=== PATIENT | female | born 1960 | race Caucasian/White ===

== ENCOUNTER → 2017-05-10 | Outpatient (CLI) | payer BC, OTHER ==
[~2017-05-10] MED LIST: ACET-1966 PO; ALPR0.5T3 PO; CALC-1210 PO; CALC667C7 PO; CHOL100060 PO; DOCU-416 PO; DOCU100C49 PO; DOCU100T19 PO; ENOX80DI8 SQ; FERR140T2 PO; FLU60SYR30 IM ONLY; FURO20TA19 PO; IBUP600T22 PO; LOSA25TA51 PO; METH500T6 PO; METO-222 PO; MULT-820 PO; NITR-1 PO; OMEG-11 PO; ONDA8TAB94 PO; OXYC-854 PO; PEGFILGRASTIM 6 MG/0.6 ML SYR SUBQ ONE; POTA-53 PO; PRAV20TA65 PO; SPIR50TA31 PO; TAMS0.4C70 PO; TOLT4CAP PO; TUM500 PO; VIT1CAPS9; WAR75 PO; WARF10TA29 PO; [UNRECOGNIZED DRUG - CODE] SUBQ
== END ==
LOC: SPU 11:05
PROVIDERS: ATTEND Internal Medicine
DX: C20 Malignant neoplasm of rectum (principal)
CPT/HCPCS: 96372; J2505

== ENCOUNTER → 2017-06-07 | Outpatient (CLI) | payer BC, OTHER ==
[~2017-06-07] MED LIST changes: +OMEP-218 PO
[2017-06-07 12:50] VITALS: BP 104/61
== END ==
LOC: SPU 07:36
PROVIDERS: ATTEND Internal Medicine
DX: C20 Malignant neoplasm of rectum (principal)
CPT/HCPCS: 96372; J2505

== ENCOUNTER 2017-06-12 14:53 | Outpatient (RCR) | payer BC ==
[2017-03-18 11:30] VITALS: BP 110/69
--- NOTE | 2017-03-21 18:19 | [facility] ONCOLOGY NOTE ---
DATE OF VISIT: March 18, 2017 CHIEF COMPLAINT/REASON FOR VISIT Mrs. Martinez is a very pleasant 56-year-old female with newly diagnosed early stage adenocarcinoma of the rectum. HISTORY OF PRESENT ILLNESS and Mrs. Martinez present to discuss her newly diagnosed adenocarcinoma of the rectum. This is not an anal carcinoma as it is not squamous cell. Based on the PET scan as well as the histology, this is a low rectal cancer as opposed to anal cancer. The patient first noted symptoms over a year ago and has had what she thought to be hemorrhoid bleeding for quite some time. She is very fortunate that her PET scan, subsequent MRI and CT do not show any evidence of metastatic disease to lymph nodes. She has an atypical appearing cyst in the liver and we will have that reviewed by the GI multidisciplinary team to make sure that there is agreement that this is a benign lesion. If not we will need to get a biopsy. Otherwise she feels well. She does have chronic medical issues including controlled congestive heart failure, Marfan syndrome, history of valve replacement and open heart surgery, sleep apnea, and history of stroke in 2001. Since the biopsy she has had issues with her bladder and she is working with Dr. Nichole to address this. I agree with him that we need to hold off on neoadjuvant therapy until the bladder is improved. Would like to get started in the next few weeks, so it may not need to be resolved completely as this is a temporary issue. I do not know why the biopsy would lead to this issue. We did not see any evidence of metastatic disease of the spine or elsewhere. If we do not get any improvement, we may need to consider a lumbar puncture, although this would be a very atypical presentation for metastatic rectal cancer. Overall the patient feels at her baseline. She does have chronic medical conditions, but otherwise her performance status ECOG PS of 1. PAST MEDICAL/SURGICAL HISTORY 1. Chronic anemia. 2. Cataract surgery. 3. Congestive heart failure. 4. Marfan syndrome. 5. Cholecystectomy in 2001. 6. Open heart surgery in approximately 2001. 7. Stroke in 2001. 8. Obstructive sleep apnea. 9. History of hemorrhoids. 10. History of incomplete bladder emptying, workup ongoing in February 2017, occurred after surgery and seems to be a surgical complication as opposed to a cancer complication. SOCIAL HISTORY Patient is and has presented with her . 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 No tobacco or alcohol use. She has four children ages 29-36. FAMILY HISTORY Her mother may have had cancer, but unknown. No other cancer in the family. CURRENT MEDICATIONS 1. Calcium. 2. Vitamin D. 3. Lasix 20 mg daily as needed for edema. 4. Potassium 10 mEq as needed for edema. 5. Losartan 25 mg daily. 6. Metoprolol XL 100 mg daily. 7. [place]-3 fatty acid supplement. 8. Pravastatin 20 mg daily. 9. Spironolactone 50 mg daily. 10. Flomax 0.4 mg daily. 11. Tylenol as needed. 12. Coumadin with Coumadin clinic. REVIEW OF SYSTEMS CONSTITUTIONAL: Positive weight loss and chills. HEENT: She wears glasses. She does have a history of obstructive sleep apnea, but headaches or vision changes. CARDIOVASCULAR: Extensive history with her history of congestive heart failure and Marfan syndrome as well as surgery. She does have a heart murmur from her mechanical aortic valve - [facility] [employer]. Positive shortness of breath with significant exertion. RESPIRATORY: No shortness of breath, wheeze, cough. GASTROINTESTINAL: No nausea, vomiting, diarrhea. GENITOURINARY: Positive poor bladder voiding since her biopsy procedure. SKIN: No concerning lesions or rashes. HEMATOLOGIC: Easy bruising and bleeding. Does have a history of known anemia. IMMUNOLOGIC: No concerning lumps or bumps. PSYCHIATRIC: No anxiety or depression. ENDOCRINE: No heat or cold intolerance. The remainder of the 14-point review of systems is otherwise negative. PHYSICAL EXAMINATION VITAL SIGNS: Blood pressure 110/69, pulse 76, respiratory rate 16, temperature 97.4 Fahrenheit, oxygen saturation 94% on room air. Height 174.5 cm, weight is 97.5 kg. Pain 0/10, fatigue 0/10. GENERAL: Stable condition, resting comfortably in the chair. HEENT: Normocephalic, atraumatic. CARDIOVASCULAR: Regular rate and rhythm. Normal S1, S2, but she does have the mechanical click of the [facility] valve. Murmur from her heart is noted as well. GASTROINTESTINAL: No organomegaly. Soft, nontender. EXTREMITIES: No clubbing, cyanosis or edema today. PSYCHIATRIC: Normal mood and affect. NEUROLOGIC: The patient does have some sciatica-like symptoms in the left leg that have been chronic and mild. RECTAL: Exam deferred. The remainder of the physical exam is otherwise unremarkable, except as noted above. LABS AND IMAGING I reviewed her PET scan reports as well as her MRI of her pelvis and CAT scan of the liver. We would like to have her case reviewed at the Multidisciplinary Team tomorrow. Would also like to screen her for our upfront clinical trial with rectal cancer. We will find out if it is possible to give radiation therapy in [place] with that study or if it needs to be in [place]. This would like be a significant deterrent as she would need to get daily radiation there. IMPRESSION AND PLAN Mrs. Martinez is a pleasant 56-year-old female with the followin. Early stage adenocarcinoma of the rectum. I had an excellent discussion with the patient and her today about the diagnosis, treatment options and natural history of this disease. As she appears to be localized disease this would have a high cure rate with complete triple modality therapy, including chemotherapy, radiation and surgery. She understands that he surgical biopsy is not adequate to completely take care of her disease. Recommend upfront therapy with FOLFOX followed by combination chemotherapy/ radiation, followed by surgery. She expresses understanding and agreement with this plan. We discussed the potential side effects of FOLFOX, Xeloda as well as the chemotherapy clinical trial with veliparib. We will see if she would be potentially eligible and we will try to get more information to her by Saturday. I completely agree with Dr. Nichole that we need to address her bladder issues before we can proceed with chemotherapy. His workup is ongoing. I answered all of their remaining questions today. Billing: New patient level 5. Total time 90 minutes, counseling time and coordination of care time 60. MTDD
[2017-04-01 08:48] LABS: PLATELET COUNT, AUTOMATED 224 K/uL (150-450)
[2017-04-01 08:51] VITALS: BP 100/67
--- NOTE | 2017-04-05 21:11 | ONCOLOGY FOLLOW UP NOTE ---
EVENT DATE: 04/01/2017 CHIEF COMPLAINT/REASON FOR VISIT Mrs. Martinez is a very pleasant 56-year-old female with early stage adenocarcinoma of the rectum. HISTORY OF PRESENT ILLNESS and Mrs. Martinez return to discuss her diagnosis and next steps. This is an adenocarcinoma of the rectum and not an anal carcinoma. Based on the PET scan as well as the histology this is a low rectal cancer as opposed to anal cancer. The patient first noted some symptoms about a year ago for what she thought was a bleeding hemorrhoid. She is very fortunate that her PET scan and subsequent MRI do not show any evidence of metastatic disease to lymph nodes. We have not yet had an EUS and hope to get one on Saturday to get the exact T score. We have reviewed her imaging with the GI multidisciplinary clinic in [place], and she has seen Dr. Anita Zhang to discuss surgery when the time is appropriate. We have considered two clinical trials, which she would be an excellent candidate for. However, the travel in the wintertime would be quite difficult and so she is declining this study. Otherwise she continues to feel well. Her bladder has improved. She no longer is requiring catheterization. She has followup with Dr. Nichole tomorrow. She does have many chronic medical issues including controlled congestive heart disease, Marfan syndrome, history of valve replacement and open heart surgery, sleep apnea and a history of a stroke in 2001. I am encouraged by the improvement in her bladder and I doubt that this is related to cancer, as we would not expect it to improve without any type of treatment. She feels ready to proceed with therapy after her port placement on . PAST MEDICAL/SURGICAL HISTORY 1. Chronic anemia. 2. Cataract surgery. 3. Congestive heart failure. 4. Marfan syndrome. 5. Cholecystectomy in 2001. 6. Open heart surgery in approximately 2001. 7. Stroke in 2001. 8. Obstructive sleep apnea. 9. History of hemorrhoids. 10. History of incomplete bladder emptying, workup ongoing in February 2017, occurred after surgery and seems to be a surgical complication as opposed to a cancer complication. SOCIAL HISTORY Patient is and has presented with her . 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 No tobacco or alcohol use. She has four children ages 29-36. FAMILY HISTORY Her mother may have had cancer, but unknown. No other cancer in the family. CURRENT MEDICATIONS 1. Calcium. 2. Vitamin D. 3. Lasix 20 mg daily as needed for edema. 4. Potassium 10 mEq as needed for edema. 5. Losartan 25 mg daily. 6. Metoprolol XL 100 mg daily. 7. [place]-3 fatty acid supplement. 8. Pravastatin 20 mg daily. 9. Spironolactone 50 mg daily. 10. Flomax 0.4 mg daily. 11. Tylenol as needed. 12. Coumadin with Coumadin clinic. REVIEW OF SYSTEMS CONSTITUTIONAL: Positive weight loss and some chills. HEENT: Does have a history of obstructive sleep apnea, but no headaches of visual changes. CARDIOVASCULAR: Extensive history with controlled congestive heart failure and Marfan syndrome. She has had a history of a mechanical valve [facility]. She does have some shortness of breath with significant exertion, but none with mild exertion. RESPIRATORY: No shortness of breath, wheeze, cough at rest. GASTROINTESTINAL: No nausea, vomiting, diarrhea or constipation. GENITOURINARY: Her bladder is improving since her biopsy procedure. I suspect that this is a complication from the procedure as opposed to a complication from the cancer. SKIN: No concerning lesions or rashes. HEMATOLOGIC: No easy bruising or bleeding. IMMUNOLOGIC: No issues with infection. PSYCHIATRIC: No anxiety or depression. ENDOCRINE: No heat or cold intolerance. The remainder of the 14-point review of systems is otherwise negative. PHYSICAL EXAMINATION VITAL SIGNS: Blood pressure 100/67, pulse 82, respiratory rate 16, temperature 97.0, Fahrenheit, oxygen saturation 92% on room air. Weight 97.3 kg. Pain 1/10 , fatigue 2/10. GENERAL: In stable condition, resting comfortably in the chair. HEENT: Normocephalic, atraumatic. CARDIOVASCULAR: Exam deferred today as it was done two weeks ago. Regular rate and rhythm. Normal S1, S2 with a mechanical click of the [employer] valve. She does have a murmur as well, believed to be related to the valve and unchanged. GASTROINTESTINAL: No organomegaly. PSYCHIATRIC: Normal mood and affect. The remainder of the physical exam is otherwise unremarkable and deferred to amount of time spent in counseling and coordination of care today. IMPRESSION AND PLAN Mrs. Martinez is a pleasant 56-year-old female with the following: Early stage adenocarcinoma of the rectum. Suspect T2 to T3 N0 M0 disease. We had an extensive discussion again today about the treatment options and natural history of the disease. As noted above, she denies clinical trial due to travel. Recommend upfront therapy with FOLFOX followed by combination chemotherapy/radiation followed by surgery. She has met with Dr. Anita Zhang in [place], and will meet with our radiation oncologist here in [place] in the near future. She expresses understanding and agreement with the plan. She would like to move forward as soon as possible. I completely agree with Dr. Nichole's plan to continue watching the bladder issues at this time. We would like to begin chemotherapy after the port placement. If she has any regression we may require Urology intervention with continued catheterizations. I answered all of their many questions today. We had an extensive discussion about the potential side effects with FOLFOX today. Billing: Return visit level 5. Total time 45 minutes, counseling time 30. MTDD
[2017-04-10 09:03] VITALS: BP 109/67
--- NOTE | 2017-04-10 09:13 | ONC Progress Note - NP.Halsey ---
Patient History Date of Service Apr 10, 2017 Reason For Visit/HPI Patient is seen in the clinic today for education prior to starting chemotherapy with FOLFOX for her early-stage adenocarcinoma of the rectum. Patient has previously consult it with Dr. Wilkinson and has discussed plan of care. Her spouse is with her today. Problem List (1) Adenocarcinoma of anal canal Oncology History Patient 1st noted symptoms about 1 year ago which she thought was bleeding from a hemorrhoid. She was then found to have an Adenocarcinoma of the rectum and not an anal carcinoma diagnosed on 02/14/2017 with a biopsy indicating poorly differentiated invasive adenocarcinoma extending to the margins, biopsy measuring 7.5 x 5 x 2 cm. PET/CT scan completed on 03/05/2017 did not show any evidence of metastatic disease to the lymph nodes. There is uptake in the low rectum with SUV of 7.16. CT of the abdomen with and without contrast completed on 03/12/2017 showed only a cystic mass in the right lobe of the liver measuring 5 x 5.8 cm. Patient's case was reviewed with GI multidisciplinary team in [place] and patient followed with Dr. Anita Zhang to discuss surgery when it is appropriate. 2 clinical trials were considered however with wintertime travel it would be difficult so patient has chosen to complete 12 cycles of FOLFOX neoadjuvant followed by radiation and then surgery. 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 Alcohol History She denies use Recreational Drug History She denies use Smoking History: No Smoking Status: Never Smoker Medications and Allergies Active Scripts Ondansetron (ZOFRAN ODT) 8 Mg Tab.rapdis, 8 MG PO Q8H, #30 TAB 3 Refills Prov:PRICILLA LINDO-BC, ONC 04/10/17 Alprazolam (ALPRAZOLAM ODT) 0.5 Mg Tab.rapdis, 1 TAB PO Q4-6H Y for nausea, #30 TAB 1 Refill Prov:PRICILLA LINDO-BC, ONC 04/10/17 Oxycodone Hcl/Acet 5/325 Mg (ENDOCET 5-325 TABLET) 1 Each Tablet, 1-2 TAB PO Q4H Y for PAIN, #30 TAB 0 Refills Prov:NASEEM POLANCO MD 04/04/17 Reported Medications Enoxaparin Sodium (LOVENOX) 80 Mg/0.8 Ml Disp.syrin, 80 MG SQ 04/01/17 Docusate Sodium (STOOL SOFTENER) 100 Mg Capsule, 100 MG PO PRN, CAPSULE 03/19/17 Potassium Chloride (POTASSIUM CHLORIDE) 10 Meq Tab.er.prt, 10 MEQ PO PRN 03/19/17 Vit C/E/Zn/Coppr/Lutein/Zeaxan (Preservision Areds 2 Softgel) 1 Each Capsule 03/19/17 Acetaminophen (TYLENOL) 325 Mg Tablet, 325 MG PO PRN, TAB 03/19/17 Tamsulosin Hcl (TAMSULOSIN HCL) 0.4 Mg Cap.er.24h, 0.4 MG PO QDAY, CAP 03/18/17 Ferrous Sulfate (FERROUS SULFATE) 140 Mg Tablet.er, 65 MG PO QDAY 03/01/17 Methylcellulose (FIBER) 500 Mg Tablet, 500 MG PO DAILY 07/28/12 Pravastatin Sodium (Pravachol) 20 Mg Tablet, 20 MG PO DAILY 07/28/12 Losartan Potassium (Losartan Potassium) 25 Mg Tablet, 25 MG PO DAILY 07/28/12 Warfarin Sodium (Coumadin) 10 Mg Tablet, 7.5 MG PO 5XWEEK It is very important that you take your coumadin exactly as prescribed, have blood work to monitor your PT/INR values, and follow up with your health care provider as prescribed. Diet and medication can affect the PT/INR level. Keep your diet pretty much the same day to day. Many foods contain Vitamin K which helps blood to clot and can affect the way your coumadin works. You don't need to avoid foods that have Vitamin K, but you do need to eat about the same amount of them every day. Be sure to tell your provider before changing your diet for any reason (weight loss, illness, etc.) Do not start or discontinue any medications, prescribed or over the counter, except on the advise of your provider or pharmacist. Coumadin (Warfarin) increases the risk of bleeding. 07/28/12 Multivitamins (Multivitamin) 1 Tab Tablet, 1 TAB PO DAILY 07/28/12 Calcium Carbonate (Tums) 500 Mg Chew, 500 MG PO DAILY 07/28/12 Docosahexanoic Acid/Epa (Fish Oil 1,000 Mg Capsule) 1 Cap Capsule, 1 CAP PO DAILY 07/28/12 Cholecalciferol (Vitamin D) 1,000 Unit Capsule, 1000 UNIT PO DAILY 07/28/12 Spironolactone (Spironolactone) 50 Mg Tablet, 50 MG PO DAILY 07/28/12 Metoprolol Tartrate (Metoprolol Tartrate) 100 Mg Tablet, 100 MG PO DAILY 07/28/12 Allergies: Coded Allergies: No Known Drug Allergies (Unverified , 07/28/12) Review of System/Physical Exam Review of Systems All Systems Reviewed/Normal: Yes, Except as Noted Hematologic: Positive for Fatigue (rated at 3 today) Physical Exam Vital Signs Temperature: 97.3 Pulse: 82 BP Systolic: 100 BP Diastolic: 67 Respiratory Rate: 16 O2 SAT: 92 O2 Delivery: Height (inches) 68.00 Weight lb: 212 Weight oz: Weight Kg ([place]onte): Pain: 1 ECOG Score: 0 General: Stable, Well Developed, Well Nourished, Not In Acute Distress Psychiatric: Mood appears normal, Affect appears normal Chemo Education Chemotherapy Education: Patient is seen today for education regarding chemotherapy with FolFox for her adenocarcinoma of the anus The treatment schedule and associated appointments were discussed and reviewed. A print out will be given to the patient. The intent for treatment is curative. Consent for treatment was completed prior to receiving treatment. Mechanism of action and associated side effects of 5-FU, leucovorin and oxaliplatin and premedications were discussed. The patient is at increased risk for infection related to bone marrow suppression with chemotherapy. Signs and symptoms of infection were reviewed with recommendation of calling the clinic if fever, chills or a temperature of 100.5 or greater is experienced. Regular monitoring of blood work will be completed. The patient is at increased risk of nausea and vomiting related to chemotherapy. Home antiemetics were reviewed with a schedule of when to take them. Script (s) for Zofran and Ativan were faxed to [facility]. Increased bowel movements or diarrhea may occur. The use of Imodium was reviewed and encouraged to have on hand. Dehydration from decreased intake, nausea or diarrhea could also occur. Side effects of dehydration were reviewed and hydration will be given as needed. Self-care strategies to minimize any symptoms from treatment were taught and written material was given for further review at home. The strategies included: dietary modifications for nausea, diarrhea, fatigue and/ or mouth sores, exercise and resting for fatigue, hydration for dehydration, and skin care for dry skin reactions. In addition, safety measures for IV chemotherapy to prevent teratogenic side effects to others was reviewed in detail to include good hand washing, double flushing, and what to do during sexual intercourse. In addition oxaliplatin will cause a numbing sensation to any cold product in the hands, feet, and oral cavity. Patient will avoid any cold products for several days post treatment to avoid the sensation. She may wear gloves or use a scarf which is outside or if she was getting into the refrigerator to protect her hands. The above information will be reviewed with the patient and family members as needed. Diagnostic Studies Diagnostic Studies Laboratory Laboratory Tests 04/01/17 08:25 Laboratory Tests 04/01/17 08:25: White Blood Count 3.4, Red Blood Count 4.92, Hemoglobin 14.1, Hematocrit 42.1, Mean Corpuscular Volume 85.7, Mean Corpuscular Hemoglobin 28.8, Mean Corpuscular Hemoglobin Concent 33.5, Red Cell Distribution Width 16.3, Platelet Count 224, Mean Platelet Volume 7.5, Neutrophils (%) (Auto) 57.0, Lymphocytes (% ) (Auto) 28.7, Monocytes (%) (Auto) 10.2, Eosinophils (%) (Auto) 3.2, Basophils (%) (Auto) 0.9, Nucleated RBC Relative Count (auto) 0.0, Neutrophils # (Auto) 1.9, Lymphocytes # (Auto) 1.0, Monocytes # (Auto) 0.3, Eosinophils # (Auto) 0.1 , Basophils # (Auto) 0.0, Nucleated RBC Absolute Count (auto) 0.00, Sodium Level 141, Potassium Level 4.0, Chloride Level 107, Carbon Dioxide Level 23, Blood Urea Nitrogen 14, Creatinine 0.60, Glomerular Filtration Rate Calc > 60.0 , Random Glucose 100, Calcium Level 9.9, Total Bilirubin 0.7, Aspartate Amino Transf (AST/SGOT) 22, Alanine Aminotransferase (ALT/SGPT) 35, Alkaline Phosphatase 73, Total Protein 7.1, Albumin 4.1, Carcinoembryonic Antigen 1.0 Assessment and Plan Assessment & Plan Mrs. Martinez is a pleasant 56-year-old female with the following: Early stage adenocarcinoma of the rectum. Suspect T2 to T3 N0 M0 disease. She has discussed treatment options with Dr. Wilkinson. Clinical trial was offered to her but due to traveling in the winter months this was not an option. Patient will complete 12 cycles of FOLFOX followed by probable radiation and surgery. Education regarding chemotherapy, side effects and management of side effects was reviewed today area did written material was given to patient. A consent was signed. Patient will start cycle 1 today. Medications for Zofran and Ativan were sent to [facility]. I personally spent a total of 40 minutes. Of that 35 minutes was counseling/ coordination of patient's care. See my note above for details. Copies to: BECKY ESPARZA MD, NANCY J RESERVATIONIST-BC, ONC Apr 10, 2017 09:13
[2017-04-10] MEDS: NS(*) 0.9% 500 ML BAG 500 ML IV PRN (10:00)
[2017-04-10] MEDS: LIDOCAINE/SOD BICARB 8.4% SYR ID PRN (10:05)
[2017-04-10] MEDS: DEXTROSE 5%(*) 100 ML BAG 100 ML IVPB PRN (10:05)
[2017-04-10] MEDS: DEXAMETHASONE SOD PHOS 10MG/ML IVP PRN (10:37)
[2017-04-10] MEDS: PALONOSETRON 0.25 MG/5 ML VIAL IVP PRN (10:38)
[2017-04-10] MEDS: FLUOROURACIL 50 MG/ML SDV IV PRN (13:31)
[2017-04-10] MEDS: FLUOROURACIL IV PRN (13:33)
[2017-04-10] MEDS: NS 0.9% IV PRN (13:33)
[2017-04-10 14:58] VITALS: BP 104/65
[2017-04-12 12:11] VITALS: BP 110/70
[2017-04-17 15:15] VITALS: BP 108/80
[2017-04-17 15:15] LABS: PLATELET COUNT, AUTOMATED 245 K/uL (150-450)
[2017-04-22 15:13] VITALS: BP 109/71
--- NOTE | 2017-04-23 19:20 | ONCOLOGY FOLLOW UP NOTE ---
EVENT DATE: April 22, 2016 CHIEF COMPLAINT/REASON FOR VISIT Mrs. Martinez is a very pleasant 56-year-old female with localized adenocarcinoma of the rectum, unknown T score, here for followup after starting neoadjuvant FOLFOX. HISTORY OF PRESENT ILLNESS and Mrs. Martinez return. This is an adenocarcinoma of the rectum not an anal carcinoma. Based on the PET scan as well as histology, this is a low rectal cancer as opposed to an anal cancer. With that she may require an ostomy with surgery, but I do not know the percent likelihood of this. We will get information from Dr. Zhang to get her assessment. The patient first noted symptoms about a year ago for what she thought was a bleeding hemorrhoid. She was fortunate that her PET scan and subsequent MRI do not show evidence of metastatic disease to the lymph node or elsewhere. We do not yet have an EUS and we are hoping to get one by the end of the month, but we could not wait to start therapy. We plan to pursue eight cycles of FOLFOX followed by chemoradiation followed by surgery in the ideal state. The patient's treatment was complicated by significant neuropathy immediately after the FOLFOX. She had perioral numbness as well as significant numbness in the hands and feet. She had significant fatigue and spent about half the day in bed. As a result, after just the first dose, we would like to reduce the dose of the oxaliplatin 15%. No new issues with the bladder fortunately. She does have multiple chronic medical conditions including controlled congestive heart failure, Marfan syndrome, history of valve replacement, sleep apnea, stroke in 2001. High risk patient. No significant concerns other than expected side effects from therapy thus far. She did have increased bile acid and nausea. PAST MEDICAL/SURGICAL HISTORY 1. Chronic anemia. 2. Cataract surgery. 3. CHF history. 4. Marfan syndrome. 5. History of cholecystectomy in 2001. 6. Open heart surgery in 2001. 7. Stroke in 2001. 8. Sleep apnea. 9. History of hemorrhoids. 10. History of incomplete bladder emptying requiring a Melendez catheter during the workup, believed to be a surgical complication as opposed to a cancer complication. SOCIAL HISTORY Patient is and has presented with her . 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 She has four children, ages 30-36. FAMILY HISTORY Her mother may have had cancer, but it is unknown. REVIEW OF SYSTEMS CONSTITUTIONAL: No fevers, chills, significant weight change. She have additional weight loss with her diagnosis. HEENT: Does have a history of obstructive sleep apnea, but no headaches or visual changes. CARDIOVASCULAR: Controlled congestive heart failure and Marfan syndrome. She has a mechanical [employer] [place] valve. She has some shortness of breath with significant exertion, but none with mild exertion. Unchanged. RESPIRATORY: No shortness of breath, cough at rest. GASTROINTESTINAL: No nausea, vomiting. She did have increased bile acids during treatment. GENITOURINARY: No dysuria, hematuria currently. Her bladder seems to be improving. SKIN: No concerning lesions or rashes. HEMATOLOGIC: No easy bruising or bleeding. IMMUNOLOGIC: No issues with infection. PSYCHIATRIC: No anxiety or depression. The remainder of the 14-point review of systems otherwise negative. PHYSICAL EXAMINATION VITAL SIGNS: Blood pressure 109/71, pulse 70, respiratory rate 16, temperature 96.7 Fahrenheit, oxygen saturation 95% on room air. Weight 95.3 kg. Pain 0/10 , fatigue 0/10. GENERAL: In stable condition, resting comfortably in the chair. HEENT: Normocephalic, atraumatic. ABDOMEN: Soft, nontender. EXTREMITIES: No clubbing, cyanosis or edema. SKIN: No concerning rashes. NEUROLOGIC: Her numbness has resolved, but she had significant numbness during treatment. No motor defects. The remainder of the physical exam is otherwise unremarkable. IMPRESSION AND PLAN Mrs. Martinez is a pleasant 56-year-old female with the following: Early stage adenocarcinoma of the rectum. Suspect T2-T3 N0 M0 disease. Recommend eight cycles of FOLFOX followed by combination chemoradiation with capecitabine followed by surgery. She has met with Dr. Anita Zhang and will meet with Radiation Oncology here in [place] in the near future. She is getting a colonoscopy with EUS later this month which is excellent. I do not know the likelihood of having an ostomy and defer to Dr. Zhang on the exact risk of that with her disease. We may not be able to know until after we get further imaging after her FOLFOX. I would like to make a 15% reduction in the oxaliplatin due to the significant neuropathy with the first dose. I answered all of her questions today. Billing: Return visit level 4. Total time 30 minutes, counseling time 20. MTDD
[2017-04-24 08:12] VITALS: BP 103/64
[2017-04-24] MEDS: LIDOCAINE/SOD BICARB 8.4% SYR ID PRN (08:22)
[2017-04-24] MEDS: DEXAMETHASONE SOD PHOS 10MG/ML IVP PRN (09:12)
[2017-04-24] MEDS: PALONOSETRON 0.25 MG/5 ML VIAL IVP PRN (09:12)
[2017-04-24] MEDS: NS(*) 0.9% 500 ML BAG 500 ML IV PRN (09:29)
[2017-04-24] MEDS: DEXTROSE 5%(*) 100 ML BAG 100 ML IVPB PRN (09:30)
[2017-04-24] MEDS: FLUOROURACIL 50 MG/ML SDV IV PRN (12:23)
[2017-04-24] MEDS: NS 0.9% IV PRN (12:32)
[2017-04-24] MEDS: FLUOROURACIL IV PRN (12:32)
[2017-04-24 12:38] VITALS: BP 106/58
[2017-04-26 11:43] VITALS: BP 94/72
[2017-04-26] MEDS: HEPARIN FLSH (PORT) 500 UN/5ML IVP PRN (11:45)
[2017-05-01 15:23] LABS: PLATELET COUNT, AUTOMATED 197 K/uL (150-450)
[2017-05-01 15:31] VITALS: BP 104/70
[2017-05-08 09:37] LABS: PLATELET COUNT, AUTOMATED 139 K/uL (150-450)
[2017-05-08] MEDS: LIDOCAINE/SOD BICARB 8.4% SYR ID PRN (10:15)
[2017-05-08] MEDS: PALONOSETRON 0.25 MG/5 ML VIAL IVP PRN (10:17)
[2017-05-08] MEDS: DEXAMETHASONE SOD PHOS 10MG/ML IVP PRN (10:17)
[2017-05-08 10:20] VITALS: BP 96/68
[2017-05-08] MEDS: NS(*) 0.9% 500 ML BAG 500 ML IV PRN (10:30)
[2017-05-08] MEDS: DEXTROSE 5%(*) 100 ML BAG 100 ML IVPB PRN (11:30)
--- NOTE | 2017-05-08 11:37 | ONC Progress Note - NP.Halsey ---
Patient History Date of Service May 08, 2017 Reason For Visit/HPI Patient is seen in the clinic today for cycle 3 day 1 of FOLFOX or her early- stage adenocarcinoma of the rectum. In review of Dr. Wilkinson's note patient will receive 8 cycles of FOLFOX followed by chemoradiation followed by surgery. Patient developed significant neuropathy immediately after FOLFOX with numbness of the hands and feet and perioral. Oxaliplatin was reduced by 15%. Patient has experienced neutropenia with her 1st 2 cycles of treatment with a recommendation of initiating Neulasta so patient can complete her cycles as scheduled without having to hold treatment in between. This is currently pending with her insurance company. Patient's absolute neutrophil count is 1200 today. I will go ahead and treat patient and if Neulasta is not approved patient may need Neupogen. Education regarding Neulasta and side effect management of Neulasta was reviewed today. Often patients will use an antihistamine such as Claritin to help decrease the histamine response caused by Neulasta which decreases the side effects. This was discussed with patient today. Patient reports that she still developed neuropathy with numbness in her hands and feet, mouth. She reports that even brushing her teeth or chewing cinnamon gum would cause an irritation. Problem List (1) Marfans syndrome (2) Adenocarcinoma of anal canal Oncology History Patient 1st noted symptoms about 1 year ago which she thought was bleeding from a hemorrhoid. She was then found to have an Adenocarcinoma of the rectum and not an anal carcinoma diagnosed on 02/14/2017 with a biopsy indicating poorly differentiated invasive adenocarcinoma extending to the margins, biopsy measuring 7.5 x 5 x 2 cm. PET/CT scan completed on 03/05/2017 did not show any evidence of metastatic disease to the lymph nodes. There is uptake in the low rectum with SUV of 7.16. CT of the abdomen with and without contrast completed on 03/12/2017 showed only a cystic mass in the right lobe of the liver measuring 5 x 5.8 cm. Patient's case was reviewed with GI multidisciplinary team in [place] and patient followed with Dr. Anita Zhang to discuss surgery when it is appropriate. 2 clinical trials were considered however with wintertime travel it would be difficult so patient has chosen to complete 8 cycles of FOLFOX neoadjuvant followed by radiation and then surgery. Patient developed significant neuropathy after cycle one and oxaliplatin has been decreased by 15%. 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 Alcohol History She denies use Recreational Drug History She denies use Smoking History: No Smoking Status: Never Smoker Medications and Allergies Active Scripts Ondansetron (ZOFRAN ODT) 8 Mg Tab.rapdis, 8 MG PO Q8H, #30 TAB 3 Refills Prov:PRICILLA LINDO MATERNITY NURSE-BC, ONC 04/10/17 Alprazolam (ALPRAZOLAM ODT) 0.5 Mg Tab.rapdis, 1 TAB PO Q4-6H Y for nausea, #30 TAB 1 Refill Prov:PRICILLA LINDO MATERNITY NURSE-BC, ONC 04/10/17 Oxycodone Hcl/Acet 5/325 Mg (ENDOCET 5-325 TABLET) 1 Each Tablet, 1-2 TAB PO Q4H Y for PAIN, #30 TAB 0 Refills Prov:NASEEM POLANCO MD 04/04/17 Reported Medications Docusate Sodium (STOOL SOFTENER) 100 Mg Capsule, 100 MG PO PRN, CAPSULE 03/19/17 Potassium Chloride (POTASSIUM CHLORIDE) 10 Meq Tab.er.prt, 10 MEQ PO PRN 03/19/17 Vit C/E/Zn/Coppr/Lutein/Zeaxan (Preservision Areds 2 Softgel) 1 Each Capsule 03/19/17 Acetaminophen (TYLENOL) 325 Mg Tablet, 325 MG PO PRN, TAB 03/19/17 Tamsulosin Hcl (TAMSULOSIN HCL) 0.4 Mg Cap.er.24h, 0.4 MG PO QDAY, CAP 03/18/17 Ferrous Sulfate (FERROUS SULFATE) 140 Mg Tablet.er, 65 MG PO QDAY 03/01/17 Methylcellulose (FIBER) 500 Mg Tablet, 500 MG PO DAILY 07/28/12 Pravastatin Sodium (Pravachol) 20 Mg Tablet, 20 MG PO DAILY 07/28/12 Losartan Potassium (Losartan Potassium) 25 Mg Tablet, 25 MG PO DAILY 07/28/12 Warfarin Sodium (Coumadin) 10 Mg Tablet, 7.5 MG PO 5XWEEK It is very important that you take your coumadin exactly as prescribed, have blood work to monitor your PT/INR values, and follow up with your health care provider as prescribed. Diet and medication can affect the PT/INR level. Keep your diet pretty much the same day to day. Many foods contain Vitamin K which helps blood to clot and can affect the way your coumadin works. You don't need to avoid foods that have Vitamin K, but you do need to eat about the same amount of them every day. Be sure to tell your provider before changing your diet for any reason (weight loss, illness, etc.) Do not start or discontinue any medications, prescribed or over the counter, except on the advise of your provider or pharmacist. Coumadin (Warfarin) increases the risk of bleeding. 07/28/12 Multivitamins (Multivitamin) 1 Tab Tablet, 1 TAB PO DAILY 07/28/12 Calcium Carbonate (Tums) 500 Mg Chew, 500 MG PO DAILY 07/28/12 Docosahexanoic Acid/Epa (Fish Oil 1,000 Mg Capsule) 1 Cap Capsule, 1 CAP PO DAILY 07/28/12 Cholecalciferol (Vitamin D) 1,000 Unit Capsule, 1000 UNIT PO DAILY 07/28/12 Spironolactone (Spironolactone) 50 Mg Tablet, 50 MG PO DAILY 07/28/12 Metoprolol Tartrate (Metoprolol Tartrate) 100 Mg Tablet, 100 MG PO DAILY 07/28/12 Discontinued Reported Medications Enoxaparin Sodium (LOVENOX) 80 Mg/0.8 Ml Disp.syrin, 80 MG SQ 04/01/17 Allergies: Coded Allergies: No Known Drug Allergies (Unverified , 07/28/12) Review of System/Physical Exam Review of Systems All Systems Reviewed/Normal: Yes, Except as Noted Constitutional: Positive for Other (patient reports some hair loss) Gastrointestinal: Nausea (one episode with last treatment) Hematologic: Positive for Fatigue, Positive for Weakness Musculoskeletal: Positive for Joint Pain, Positive for Bone Pain Neurologic: Numbness of Hands, Numbness of Feet, Other (oral mucosa post treatment) Psychiatric: Other (her is with her today) Physical Exam Vital Signs Temperature: 97.8 Pulse: 71 BP Systolic: 104 BP Diastolic: 70 Respiratory Rate: 16 O2 SAT: 95 O2 Delivery: Height (inches) 68.71 Weight lb: 212 Weight oz: Weight Kg (Deonte): Pain: 0 ECOG Score: 1 General: Stable, Well Developed, Well Nourished, Not In Acute Distress HEENT: No Trauma, No Conjunctivitis, No Icterus, No Mucositis, No Oral Thrush Neck: Supple Lungs: Clear to Auscultation Heart: Regular Rate, Regular Rhythm, No Gallops Abdomen: Soft and Nontender, No Hepatosplenomegaly, No Masses, Other (bowel sounds are active) Extremities: No Cyanosis, No Clubbing, No Edema Psychiatric: Mood appears normal, Affect appears normal Skin: No Skin Rashes, No Bruising, No Purpura Diagnostic Studies Diagnostic Studies Laboratory Laboratory Tests 05/08/17 00:00 05/08/17 09:30 Laboratory Tests 04/01/17 08:25: Carcinoembryonic Antigen 1.0 05/01/17 15:12: Peripheral Blood Smear Yes 05/08/17 00:00: Sodium Level 141, Potassium Level 4.0, Chloride Level 105, Carbon Dioxide Level 26, Blood Urea Nitrogen 17, Creatinine 0.70, Glomerular Filtration Rate Calc > 60.0, Random Glucose 107, Calcium Level 9.3, Total Bilirubin 0.8, Aspartate Amino Transf (AST/SGOT) 46, Alanine Aminotransferase (ALT/SGPT) 73, Alkaline Phosphatase 72, Total Protein 6.8, Albumin 3.9 05/08/17 09:30: White Blood Count 2.7, Red Blood Count 4.71, Hemoglobin 13.8, Hematocrit 40.5, Mean Corpuscular Volume 86.1, Mean Corpuscular Hemoglobin 29.4, Mean Corpuscular Hemoglobin Concent 34.1, Red Cell Distribution Width 17.3, Platelet Count 139, Mean Platelet Volume 7.2, Neutrophils (%) (Auto) 44.4, Lymphocytes (% ) (Auto) 32.2, Monocytes (%) (Auto) 15.5, Eosinophils (%) (Auto) 7.2, Basophils (%) (Auto) 0.7, Nucleated RBC Relative Count (auto) 0.1, Neutrophils # (Auto) 1.2, Lymphocytes # (Auto) 0.9, Monocytes # (Auto) 0.4, Eosinophils # (Auto) 0.2 , Basophils # (Auto) 0.0, Nucleated RBC Absolute Count (auto) 0.00 Assessment and Plan Assessment & Plan Mrs. Martinez is a pleasant 56-year-old female with the following: Early stage adenocarcinoma of the rectum. Suspect T2 to T3 N0 M0 disease, complete staging is pending. Patient is scheduled for upper GI and colonoscopy to be completed in [place] on the of this month. The current recommendation includes eight cycles of FOLFOX per Dr. Wilkinson's last dictation ,followed by combination chemoradiation with capecitabine followed by surgery. Patient required dose reduction of oxaliplatin by 15% due to significant neuropathy after the 1st dose. She has met with Dr. Anita Zhang and will meet with Radiation Oncology here in [place] in the near future. I have visited with patient with a recommendation after cycle 7 to initiate the consult with radiation therapy. Patient and spouse both agreed with this plan of care. Patient to follow with the provider with each cycle. Referral to radiation therapy after cycle 7 Confirm that patient is only receiving 8 cycles of FOLFOX therapy. I personally spent a total of 20 minutes. Of that 15 minutes was counseling/ coordination of patient's care. See my note above for details. Copies to: RIMA PIZARRO MD, NANCY J MATERNITY NURSE-BC, ONC May 08, 2017 11:36
[2017-05-08] MEDS: NS 0.9% IV PRN (14:50)
[2017-05-08] MEDS: FLUOROURACIL IV PRN (14:50)
[2017-05-08 15:53] VITALS: BP 109/71
[2017-05-10] MEDS: HEPARIN FLSH (PORT) 500 UN/5ML IVP PRN (14:04)
[2017-05-14 14:35] VITALS: BP 123/64
[2017-05-14 14:43] LABS: PLATELET COUNT, AUTOMATED 129 K/uL (150-450)
[2017-05-20 15:34] VITALS: BP 103/71
--- NOTE | 2017-05-21 21:38 | ONCOLOGY FOLLOW UP NOTE ---
EVENT DATE: May 20, 2017 CHIEF COMPLAINT/REASON FOR VISIT Mrs. Martinez is a very pleasant 56-year-old female with localized adenocarcinoma of the rectum, unknown T score, here for followup after starting neoadjuvant FOLFOX. HISTORY OF PRESENT ILLNESS and Mrs. Martinez return. This is an adenocarcinoma of the rectum and not an anal squamous cell carcinoma. Based on the PET scan as well as histology, this is a low rectal cancer as opposed to an anal cancer. While she may still require an ostomy with surgery, I do not know the likelihood of this and I am encouraged by her response thus far. The patient first noted symptoms about a year ago for what she thought was a bleeding hemorrhoid. She is fortunate that her PET scan and subsequent MRI do not show evidence of metastatic to the lymph nodes or elsewhere. EUS was done recently, but did not have any concerning findings, although this was after she received two doses of chemotherapy. She did have significant neuropathy, after starting the FOLFOX, with cold temperatures. We made a dose reduction in the oxaliplatin. She continues to feel uncomfortable with the cold, but if her hands are warm she notes no symptoms. She continues to have multiple other chronic medical issues including controlled congestive heart failure, Marfan syndrome, history of valve replacement, sleep apnea and stroke in 2001. This is a high risk patient. She was started on PPI for acid in her stomach and feels much better. Her had noted periodic wheezing, and we recommend taking Lasix as needed. PAST MEDICAL/SURGICAL HISTORY 1. Chronic anemia. 2. Cataract surgery. 3. CHF. 4. Marfan syndrome. 5. History of cholecystectomy in 2001. 6. History of open heart surgery in 2001. 7. History of stroke in 2001. 8. Sleep apnea. 9. History of hemorrhoids. 10. History of incomplete blood emptying requiring a Melendez for quite some time. Believed to be a surgical complication as opposed to a cancer complication. 11. Localized adenocarcinoma of the rectum. SOCIAL HISTORY Patient is and has presented with her again. 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 FAMILY HISTORY The patient's mother may have had cancer, but it is unclear. REVIEW OF SYSTEMS CONSTITUTIONAL: No fevers, chills, significant weight change. HEENT: Positive sleep apnea. No headache or vision changes. CARDIOVASCULAR: Controlled congestive heart failure and Marfan syndrome. She has a mechanical [facility] valve. RESPIRATORY: No shortness of breath. Cough at rest. Her has noted some wheezing recently, and she is eight pounds up. She should use Lasix as needed. GASTROINTESTINAL: No nausea, vomiting. Increased acid has improved with the PPI. GENITOURINARY: No dysuria or hematuria. The bladder seems to be improving. SKIN: No concerning lesions or rashes. HEMATOLOGICAL: No easy bruising or bleeding. IMMUNOLOGIC: No issues with infection. PSYCHIATRIC: No anxiety of depression. The remainder of the 14-point review of systems is otherwise negative. PHYSICAL EXAMINATION VITAL SIGNS: Blood pressure 103/71, pulse 65, respiratory rate 16, temperature 96.8 Fahrenheit, oxygen saturation 96% on room air. Weight 95.5 kg. Pain 0/10 , fatigue 4/10. GENERAL: In stable condition resting comfortably in the chair. HEENT: Normocephalic, atraumatic. CARDIOVASCULAR: Exam deferred today. ABDOMEN: Soft, nontender. EXTREMITIES: No clubbing, cyanosis or significant edema in the ankles, although she states she usually gets edema in her legs. Remainder of the physical exam deferred today to the amount of time spent in counseling and coordination of care. IMPRESSION AND PLAN Mrs. Martinez is a very pleasant female with the followin. Localized adenocarcinoma of the rectum. Suspect T2 to T3 N0 M0 disease. Recommend eight cycles of FOLFOX followed by combination chemoradiation with capecitabine followed by surgery. She has met with Dr. Zhang and will meet with Dr. Mccormick or Dr. Miller in [place] in the future. I do not know her T stage because we started chemotherapy prior to her EUS. She is already showing signs of response. 2. 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 We already made a 15% dose reduction in her oxaliplatin. No further dose reduction needed. We will see her with each cycle. Billing: Return visit level 4. Total time 30 minutes, counseling time 20. MTDD
[2017-05-22 09:14] VITALS: BP 123/63
[2017-05-22] MEDS: NS(*) 0.9% 500 ML BAG 500 ML IV PRN (09:20)
[2017-05-22] MEDS: LIDOCAINE/SOD BICARB 8.4% SYR ID PRN (10:40)
[2017-05-22] MEDS: HEPARIN FLSH (PORT) 500 UN/5ML IVP PRN (10:40)
[2017-05-23] MEDS: HEPARIN FLSH (PORT) 500 UN/5ML IVP PRN (12:05)
--- NOTE | 2017-05-23 13:19 | RADIOLOGY IMAGING REPORT ---
FAC[facility] PATIENT NAME: Radha Martinez : 1960 MR: [id number] V: [id number] EXAM DATE: ORDERING PHYSICIAN: RIMA PIZARRO TECHNOLOGIST: Location: [facility] [place] Patient: Radha Martinez : 1960 Visit/Account:[id number] Date of Sevice: 05/23/2017 ABDOMEN W CONTRAST HISTORY: Elevated liver enzymes TECHNIQUE: Following Administration of IV contrast axial images acquired from the lung bases to the iliac crest. Coronal and sagittal reformatting also performed. One of the following dose optimizati on techniques was utilized in the performance of this exam: Automated exposure control; adjustment of the mA and/or kV according to the patient's size; or use of an iterative reconstruction technique. Specific details can be referenced in the facility's radiology CT exam operational policy. Contrast: 75 mL Isovue-370 COMPARISON: CT abdomen/pelvis 03/12/2017 FINDINGS: Visualized lung bases: Minimal discoid scarring seen at the right lung base. Previous noted the micr onodules not identified on today's examination. Hepatobiliary: Again seen is a lobulated cyst in the posterior segment right liver lobe measuring 6. 0 x 4.7 x 4.1 cm diameter. There is no enhancement and it measures near water density on both portal venous and excretory phase. Liver appears otherwise normal. Remote cholecystectomy. Spleen: Negative. Adrenals: Negative. Pancreas: Negative. Kidneys and visualized portion of ureters: Negative. Visualized GI: Again seen is a saccular diverticulum off the third portion of the duodenum which is best appreciated coronal images 42-49 series 7. It measures 3.5 cm diameter. This is pushes the GI tr act otherwise unremarkable. Vessels/spaces/nodes: Negative. Bones/soft tissues: Negative. Additional findings: None pertinent. IMPRESSION: Stable lobulated benign hepatic cyst. Liver otherwise unremarkable. 3.5 cm large duodenal diverticulum as detailed above. Remote cholecystectomy. Report Dictated By: Abimael Lawler MD at 05/23/2017 12:56 PM Report E-Signed By: Abimael Lawler MD at 05/23/2017 1:15 PM WSN:[id number]
[2017-05-29 14:52] VITALS: BP 100/63
[2017-05-29 15:20] LABS: PLATELET COUNT, AUTOMATED 234 K/uL (150-450)
[2017-06-05 09:17] VITALS: BP 95/62
[2017-06-05 09:40] LABS: PLATELET COUNT, AUTOMATED 267 K/uL (150-450)
[2017-06-05] MEDS: NS(*) 0.9% 500 ML BAG 500 ML IV PRN (10:21)
[2017-06-05] MEDS: PALONOSETRON 0.25 MG/5 ML VIAL IVP PRN (10:21)
[2017-06-05] MEDS: DEXAMETHASONE SOD PHOS 10MG/ML IVP PRN (10:21)
[2017-06-05] MEDS: DEXTROSE 5%(*) 100 ML BAG 100 ML IVPB PRN (10:21)
--- NOTE | 2017-06-05 10:36 | ONC Progress Note - NP.Halsey ---
Patient History Date of Service Jun 05, 2017 Reason For Visit/HPI Patient is seen in the clinic today for cycle 4 day 1 of FOLFOX or her early- stage adenocarcinoma of the rectum. In review of Dr. Wilkinson's note patient will receive 8 cycles of FOLFOX followed by chemoradiation followed by surgery. Patient developed significant neuropathy immediately after FOLFOX with numbness of the hands and feet and perioral. Oxaliplatin was reduced by 15%. Patient has experienced neutropenia with her first two cycles of treatment with a recommendation of initiating Neulasta so patient can complete her cycles as scheduled without having to hold treatment in between. This was initiated on . Patient continues to report that she has a cold sensation status post treatment for approximately 5 days this is experienced in her hands and with any cold product that she might swallow. This isn't an expected side effect of oxaliplatin and was reviewed with patient again today. In addition she has developed dryness of the hands approximately 7-10 days posttreatment. She is using a heavy moisturizer cream as a prevention. Treatment was held on 05-22-17 due to elevated liver enzymes. Patient reports that she had a colonoscopy with Dr. Perkins last week. Oncology History Patient 1st noted symptoms about 1 year ago which she thought was bleeding from a hemorrhoid. She was then found to have an Adenocarcinoma of the rectum and not an anal carcinoma diagnosed on 02/14/2017 with a biopsy indicating poorly differentiated invasive adenocarcinoma extending to the margins, biopsy measuring 7.5 x 5 x 2 cm. PET/CT scan completed on 03/05/2017 did not show any evidence of metastatic disease to the lymph nodes. There is uptake in the low rectum with SUV of 7.16. CT of the abdomen with and without contrast completed on 03/12/2017 showed only a cystic mass in the right lobe of the liver measuring 5 x 5.8 cm. Patient's case was reviewed with GI multidisciplinary team in [place] and patient followed with Dr. Anita Zhang to discuss surgery when it is appropriate. 2 clinical trials were considered however with wintertime travel it would be difficult so patient has chosen to complete 8 cycles of FOLFOX neoadjuvant followed by radiation and then surgery. Patient developed significant neuropathy after cycle one and oxaliplatin has been decreased by 15%. 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 Alcohol History She denies use Recreational Drug History She denies use Smoking History: No Smoking Status: Never Smoker Medications and Allergies Active Scripts Ondansetron (ZOFRAN ODT) 8 Mg Tab.rapdis, 8 MG PO Q8H, #30 TAB 3 Refills Prov:PRICILLA LINDO [facility]-BC, ONC 04/10/17 Alprazolam (ALPRAZOLAM ODT) 0.5 Mg Tab.rapdis, 1 TAB PO Q4-6H Y for nausea, #30 TAB 1 Refill Prov:PRICILLA LINDO [facility], ONC 04/10/17 Oxycodone Hcl/Acet 5/325 Mg (ENDOCET 5-325 TABLET) 1 Each Tablet, 1-2 TAB PO Q4H Y for PAIN, #30 TAB 0 Refills Prov:NASEEM POLANCO MD 04/04/17 Reported Medications Omeprazole Magnesium (PRILOSEC OTC) 20 Mg Tablet.dr, 1 TAB PO BID, TAB 05/20/17 Docusate Sodium (STOOL SOFTENER) 100 Mg Capsule, 100 MG PO PRN, CAPSULE 03/19/17 Potassium Chloride (POTASSIUM CHLORIDE) 10 Meq Tab.er.prt, 10 MEQ PO PRN 03/19/17 Vit C/E/Zn/Coppr/Lutein/Zeaxan (Preservision Areds 2 Softgel) 1 Each Capsule 03/19/17 Acetaminophen (TYLENOL) 325 Mg Tablet, 325 MG PO PRN, TAB 03/19/17 Tamsulosin Hcl (TAMSULOSIN HCL) 0.4 Mg Cap.er.24h, 0.4 MG PO QDAY, CAP 03/18/17 Ferrous Sulfate (FERROUS SULFATE) 140 Mg Tablet.er, 65 MG PO QDAY 03/01/17 Methylcellulose (FIBER) 500 Mg Tablet, 500 MG PO DAILY 07/28/12 Pravastatin Sodium (Pravachol) 20 Mg Tablet, 20 MG PO DAILY 07/28/12 Losartan Potassium (Losartan Potassium) 25 Mg Tablet, 25 MG PO DAILY 07/28/12 Warfarin Sodium (Coumadin) 10 Mg Tablet, 7.5 MG PO 5XWEEK It is very important that you take your coumadin exactly as prescribed, have blood work to monitor your PT/INR values, and follow up with your health care provider as prescribed. Diet and medication can affect the PT/INR level. Keep your diet pretty much the same day to day. Many foods contain Vitamin K which helps blood to clot and can affect the way your coumadin works. You don't need to avoid foods that have Vitamin K, but you do need to eat about the same amount of them every day. Be sure to tell your provider before changing your diet for any reason (weight loss, illness, etc.) Do not start or discontinue any medications, prescribed or over the counter, except on the advise of your provider or pharmacist. Coumadin (Warfarin) increases the risk of bleeding. 07/28/12 Multivitamins (Multivitamin) 1 Tab Tablet, 1 TAB PO DAILY 07/28/12 Calcium Carbonate (Tums) 500 Mg Chew, 500 MG PO DAILY 07/28/12 Docosahexanoic Acid/Epa (Fish Oil 1,000 Mg Capsule) 1 Cap Capsule, 1 CAP PO DAILY 07/28/12 Cholecalciferol (Vitamin D) 1,000 Unit Capsule, 1000 UNIT PO DAILY 07/28/12 Spironolactone (Spironolactone) 50 Mg Tablet, 50 MG PO DAILY 07/28/12 Metoprolol Tartrate (Metoprolol Tartrate) 100 Mg Tablet, 100 MG PO DAILY 07/28/12 Allergies: Coded Allergies: No Known Drug Allergies (Unverified , 07/28/12) Review of System/Physical Exam Review of Systems All Systems Reviewed/Normal: Yes, Except as Noted HEENT: Other (reports that her hair has significantly thinned) Gastrointestinal: Diarrhea (with bowel prep for colonoscopy) Hematologic: Positive for Fatigue Neurologic: Tingling of Hands, Other (as listed above cold sensation) Skin: Positive for Dry Skin (on the hands occasionally causing peeling) Physical Exam Vital Signs Temperature: 97.8 Pulse: 84 BP Systolic: 95 BP Diastolic: 62 Respiratory Rate: 16 O2 SAT: 97 O2 Delivery: Height (inches) 68.71 Weight lb: 212 Weight oz: Weight Kg (Deonte): Pain: 0 ECOG Score: 1 General: Stable, Well Developed, Well Nourished, Not In Acute Distress HEENT: No Trauma, No Conjunctivitis, No Icterus, No Mucositis, No Oral Thrush Neck: Supple Heart: Regular Rate, Regular Rhythm, No Gallops Abdomen: Soft and Nontender, No Hepatosplenomegaly, No Masses, Other (bowel sounds are active) Extremities: No Cyanosis, No Clubbing, No Edema, Other (no dry skin noted on the hands today. Patient just put lotion on them) Psychiatric: Mood appears normal, Affect appears normal Skin: No Skin Rashes, No Bruising, No Purpura Diagnostic Studies Diagnostic Studies Laboratory Laboratory Tests 06/05/17 09:30 Laboratory Tests 05/14/17 14:39: Neutrophils % (Manual) 56, Band Neutrophils % 11, Lymphocytes % (Manual) 17, Monocytes % (Manual) 12, Eosinophils % (Manual) 4, Basophils % (Manual) 0 06/05/17 09:30: White Blood Count 4.0, Red Blood Count 4.29, Hemoglobin 13.1, Hematocrit 38.3, Mean Corpuscular Volume 89.3, Mean Corpuscular Hemoglobin 30.5, Mean Corpuscular Hemoglobin Concent 34.1, Red Cell Distribution Width 21.9, Platelet Count 267, Mean Platelet Volume 7.6, Neutrophils (%) (Auto) 64.1, Lymphocytes (% ) (Auto) 19.2, Monocytes (%) (Auto) 12.2, Eosinophils (%) (Auto) 3.3, Basophils (%) (Auto) 1.2, Nucleated RBC Relative Count (auto) 0.0, Neutrophils # (Auto) 2.5, Lymphocytes # (Auto) 0.8, Monocytes # (Auto) 0.5, Eosinophils # (Auto) 0.1 , Basophils # (Auto) 0.0, Nucleated RBC Absolute Count (auto) 0.00, Peripheral Blood Smear No, Sodium Level 139, Potassium Level 4.3, Chloride Level 106, Carbon Dioxide Level 22, Blood Urea Nitrogen 21, Creatinine 0.70, Glomerular Filtration Rate Calc > 60.0, Random Glucose 98, Calcium Level 9.4, Total Bilirubin 0.9, Aspartate Amino Transf (AST/SGOT) 33, Alanine Aminotransferase ( ALT/SGPT) 54, Alkaline Phosphatase 86, Total Protein 7.2, Albumin 4.0 Assessment and Plan Assessment & Plan Mrs. Martinez is a pleasant 56-year-old female with the following: Early stage adenocarcinoma of the rectum. Suspect T2 to T3 N0 M0 disease, complete staging is pending. Patient completed upper GI and colonoscopy in [place] on the and reports it was unremarkable. She is currently completing cycle 4 of the recommended eight cycles of FOLFOX per Dr. Wilkinson. This will be followed by combination chemoradiation with capecitabine followed by surgery. Patient required dose reduction of oxaliplatin by 15% due to significant neuropathy after the 1st dose. Patient was started on Neulasta with cycle 3 due to neutropenia. Cycle 4 was held due to elevated liver enzymes. She has met with Dr. Anita Zhang and will meet with Radiation Oncology here in [place] in the near future. I have visited with patient with a recommendation after cycle 7 to initiate the consult with radiation therapy. Patient and spouse both agreed with this plan of care. She will complete cycle 4 today. Patient to follow with the provider with each cycle. Referral to radiation therapy after cycle 7 I personally spent a total of 20 minutes. Of that 15 minutes was counseling/ coordination of patient's care. See my note above for details. Copies to: BECKY ESPARZA MD, NANCY J IMPRESS ASSOCIATE-BC, ONC Jun 05, 2017 10:36
[2017-06-07] MEDS: HEPARIN FLSH (PORT) 500 UN/5ML IVP PRN (13:26)
[~2017-06-12] VITALS: Ht 174.5 cm; Wt 94.6 kg
[~2017-06-12 14:53] MED LIST changes: +ALTEPLASE RECOMB 2 MG VIAL IVP PRN; +D5W IVPB ONE; +FLUOROURACIL 50 MG/ML SDV IV PRN; +FLUOROURACIL 50 MG/ML SDV IVP ONE; +FLUOROURACIL 50 MG/ML SDV IVP PRN; +FLUOROURACIL IV ONE; +FLUOROURACIL IV PRN; +IOPAMIDOL 76% 75 ML INFUS BTL 75 ML ONE; +LEUCOVORIN CAL IV ONE; +LEUCOVORIN CALCIUM IV ONE; +NS 0.9% 20 ML SDV 40 ML ONE; +NS 0.9% IV ONE; +NS 0.9% IV PRN; +NS(*) 0.9% 100 ML BAG 100 ML IVPB PRN; +OXALIPLATIN 100 MG/20 ML VIAL 180 MG in D5W(*) 250 ML BAG 250 ML IVPB ONE; +OXALIPLATIN IVPB ONE; +WATER STERILE 10 ML VIAL IVP PRN; +[UNRECOGNIZED DRUG - OTHER] IV ONE
[2017-06-12 14:57] VITALS: BP 111/60
[2017-06-12 15:26] LABS: PLATELET COUNT, AUTOMATED 221 K/uL (150-450)
[2017-06-19] MEDS ORDERED: DIPH-543 PO (09:54)
== END 2017-06-13 ==
LOC: SPU 14:53
PROVIDERS: ATTEND Internal Medicine
DX: Z51.11 Encounter for antineoplastic chemotherapy (principal); C21.0 Malignant neoplasm of anus, unspecified; Z79.899 Other long term (current) drug therapy; G62.0 Drug-induced polyneuropathy; R05 Cough; I50.9 Heart failure, unspecified; K76.89 Other specified diseases of liver; K57.10 Diverticulosis of small intestine without perforation or abscess without bleeding; Z90.49 Acquired absence of other specified parts of digestive tract; D70.2 Other drug-induced agranulocytosis; R53.83 Other fatigue; R19.7 Diarrhea, unspecified; R20.2 Paresthesia of skin
CPT/HCPCS: 36415; 74160; 82378; 85025; 85027; 96367; 96368; 96375; 96411; 96413; 96415; 96416; 96523; 99202; 99212; J0640; J1100; J1642; J2469; J7040; J7050; J7060; J9190; J9263; Q9967; 82040; 82247; 82310; 82374; 82435; 82565; 82947; 84075; 84132; 84155; 84295; 84450; 84460; 84520

== ENCOUNTER → 2017-06-21 | Outpatient (CLI) | payer BC, OTHER ==
[~2017-06-21] MED LIST changes: -ALTEPLASE RECOMB 2 MG VIAL IVP PRN; -D5W IVPB ONE; +DIPH-543 PO; -FLUOROURACIL 50 MG/ML SDV IV PRN; -FLUOROURACIL 50 MG/ML SDV IVP ONE; -FLUOROURACIL 50 MG/ML SDV IVP PRN; -FLUOROURACIL IV ONE; -FLUOROURACIL IV PRN; -IOPAMIDOL 76% 75 ML INFUS BTL 75 ML ONE; -LEUCOVORIN CAL IV ONE; -LEUCOVORIN CALCIUM IV ONE; -NS 0.9% 20 ML SDV 40 ML ONE; -NS 0.9% IV ONE; -NS 0.9% IV PRN; -NS(*) 0.9% 100 ML BAG 100 ML IVPB PRN; -OXALIPLATIN 100 MG/20 ML VIAL 180 MG in D5W(*) 250 ML BAG 250 ML IVPB ONE; -OXALIPLATIN IVPB ONE; -WATER STERILE 10 ML VIAL IVP PRN; -[UNRECOGNIZED DRUG - OTHER] IV ONE
== END ==
LOC: SPU 12:09
PROVIDERS: ATTEND Internal Medicine
DX: C20 Malignant neoplasm of rectum (principal)
CPT/HCPCS: 96372; J2505; 87045

== ENCOUNTER 2017-07-03 10:00 | Outpatient (RCR) | payer BC, OTHER ==
--- NOTE | 2017-04-11 17:30 | PT INITIAL EVALUATION ---
MEDICAL DIAGNOSIS: Anal Adenocarcinoma TREATMENT DIAGNOSIS: Anal Adenocarcinoma, Neck stiffness, Patellofemoral syndrome DATE OF ONSET: 04/10/17 SUBJECTIVE: Radha is a 56 year-old female presenting to physical therapy following recent diagnosis of anal adenocarcinoma. Pt is starting medical oncology intervention today with treatment of FOLFOX and Oxaliplatin every 2 weeks as well as gradual progression to both radiation and surgical intervention. Currently pt has some neck stiffness and R shoulder pain rated at 3-4/10 following recent port placement on the R side. In addition pt also has a history of chronic L hip pain reaching into the lateral L knee rated as a 4-5/ 10 and gets worse with walking. This hip/knee pain is best at a 1-2/10, but never really goes away. Pt lives in a 2 story house and is relatively sedentary other than having to go up and down stairs to go to the bathroom throughout the day. REHAB PROBLEM LIST: Increased Pain Decreased ROM Decreased Strength Decreased Endurance Decreased Function Decreased ADL's Decreased Mobility Decreased Gait PREVIOUS MEDICAL HISTORY: See EMR, hx significant for Marfan's syndrome, Scoliosis, CHF, and CVA OCCUPATION: Unemployed OBJECTIVE: Posture: Rounded shoulders posture with increased thoracic kyphosis. ROM: LE and UE ROM WFL. Cervical ROM with moderate restrictions in L SB and B rotation secondary to pain and stiffness on R side. Strength: LE MMT: Hip: Flexion: L 3+/5 with pain on lateral knee and anterior thigh, R 4/5, Ext: L 4/5, R 4+/5, Abd: L 4/5, R 4+/5, Add: B 4+/5. Knee: Flexion: L 4/5, R 4+/5, Ext: L 4+/5 with pain, R 5/5. Palpation: Pt is tender to palpation along lateral joint line of L knee. Sensation: Sensation intact to light touch Other Objective Findings: ECOG Performance Status: Grade 2 FACT-G (Initial EVAL 04/10/17): PWB: , SWB: , EWB: , FWB: 03/12 , Total: 79/108 ASSESSMENT: Pt shows signs and symptoms consistent with L patellofemoral syndrome as well as cervicalgia associated with recent port placement. Physical therapy is indicated to address the above listed impairments, as well as improve and maintain pt functional mobility with ongoing oncological treatment for performance of ADL's and improved outcomes. Short Term Goals In 4 weeks pt will decrease R neck and shoulder pain to 0/10 with improved cervical mobility to WFL for increased function with ADL's. In 3 months pt will maintain FACT-G score of >79/108 indicating maintenance of functional well-being. In 3 months pt will decrease L knee and hip pain to < 2/10 with walking and ADL' s for increased functional mobility. In 3 months pt will maintain ECOG performance status of grade 2 or less for improved outcomes with ongoing oncological intervention and maintenance of function. In 6 months pt will maintain FACT-G score of >79/108 indicating maintenance of functional well-being. In 6 months pt will maintain ECOG performance status of grade 2 or less for improved outcomes with ongoing oncological intervention and maintenance of function. Patient's Goals Maintain function, decrease neck pain and hip pain. PLAN: Patient to be seen for Manual Therapy/STM/MET Strengthening/condition Ice/Heat Range of Motion Spinal Stabilization Ultrasound Stretching Iontophoresis Neuromuscular Re-ed Closed Chain Program Electrical Stim Posture/Body mechanics Gait Trg/Balance Trg Biofeedback Home Exercise Program Mech./Manual Traction Therapeutic Activities Pelvic Floor 1x/Week for 6 MO If you have any questions, comments, or concerns about this report or plan, please contact me at . Thank you, Abiola Pinto, PT, DPT, CLT MTDD
--- NOTE | 2017-05-08 10:36 | PT PLAN OF CARE ---
Physician: CALEB Mon Patient is being seen: 2x/MO Therapist: Abiola Pinto, PT, DPT, CLT Medical Diagnosis: Anal Adenocarcinoma Treatment Diagnosis: Anal Adenocarcinoma, Neck stiffness, Patellofemoral syndrome Date of Onset: 04/10/17 Date of Initial Evaluation: 04/10/17 Date patient was last seen: 05/08/17 Number of treatments: 3 Number of cancellations/No shows: 0 INTERVENTIONS: Manual Therapy/STM/MET Strengthening/condition Ice/Heat Range of Motion Spinal Stabilization Ultrasound Stretching Iontophoresis Neuromuscular Re-ed Closed Chain Program Electrical Stim Posture/Body mechanics Gait Trg/Balance Trg Biofeedback Home Exercise Program Mech./Manual Traction Therapeutic Activities Pelvic Floor GOALS: In 4 weeks pt will decrease R neck and shoulder pain to 0/10 with improved cervical mobility to WFL for increased function with ADL's. In 3 months pt will maintain FACT-G score of >79/108 indicating maintenance of functional well-being. In 3 months pt will decrease L knee and hip pain to < 2/10 with walking and ADL' s for increased functional mobility. In 3 months pt will maintain ECOG performance status of grade 2 or less for improved outcomes with ongoing oncological intervention and maintenance of function. In 6 months pt will maintain FACT-G score of >79/108 indicating maintenance of functional well-being. In 6 months pt will maintain ECOG performance status of grade 2 or less for improved outcomes with ongoing oncological intervention and maintenance of function. PATIENT'S GOAL: Maintain function, decrease neck pain and hip pain. Status of Patient's Goals: In Progress Patient Compliance: Good Prognosis: Good Reasons for continuing therapy: Radha's cervical ROM is now full and equal B, however remains to have stiff end-feel on the R side with muscular guarding. Pt also has occasional R shoulder impingement from muscular dysfunction with radiating pain in to the R elbow. Pt shows improved balance and hip strength with decreased L hip and knee pain but lingering symptoms. Side-effects from treatment currently are cold intolerance as well as occasional nausea which have been addressed by PROP AND EFFECTS DESIGNER. Posture: Rounded shoulders posture with increased thoracic kyphosis and forward head. ROM: LE and UE ROM WFL. Cervical ROM full with end-feel of stiffness on R side. Strength: LE MMT: Hip: Flexion: L 3+/5 with pain on lateral knee and anterior thigh, R 4/5, Ext: L 4/5, R 4+/5, Abd: L 4/5, R 4+/5, Add: B 4+/5. Knee: Flexion: L 4/5, R 4+/5, Ext: L 4+/5 with pain, R 5/5. Palpation: Pt is tender to palpation along lateral joint line of L knee. Sensation: Sensation intact to light touch Other Objective Findings: ECOG Performance Status: Grade 2 FACT-G (Initial EVAL 04/10/17): PWB: 25, SWB: , EWB: , FWB: 03/12, Total: 79/108 FACT-G 05/08/17: PWB: 16/, SWB: 25.09/09, EWB: 17.09/05, FWB: , Total: 78/ 108 If you have any questions or concerns, please feel free to contact me at . Thank you, Abiola Pinto, PT, DPT, CLT MTDD
[~2017-07-03 10:00] MED LIST changes: -PEGFILGRASTIM 6 MG/0.6 ML SYR SUBQ ONE
== END 2017-07-09 ==
LOC: PT 10:00
PROVIDERS: ATTEND Nurse Practitioner Family
DX: C21.1 Malignant neoplasm of anal canal (principal); M43.6 Torticollis; M25.511 Pain in right shoulder; M25.552 Pain in left hip; M22.2X2 Patellofemoral disorders, left knee; Q87.40 Marfan syndrome, unspecified; I50.9 Heart failure, unspecified; Z86.73 Personal history of transient ischemic attack (TIA), and cerebral infarction without residual deficits
CPT/HCPCS: 97163

== ENCOUNTER → 2017-07-05 | Outpatient (CLI) | payer BC, OTHER ==
[~2017-07-05] MED LIST changes: +PEGFILGRASTIM 6 MG/0.6 ML SYR SUBQ ONE
== END ==
LOC: SPU 07:40
PROVIDERS: ATTEND Internal Medicine
DX: C20 Malignant neoplasm of rectum (principal)
CPT/HCPCS: 96372; J2505

== ENCOUNTER → 2017-07-19 | Outpatient (CLI) | payer BC, OTHER | LOC: SPU 08:29 | PROVIDERS: ATTEND Internal Medicine | DX: C20 Malignant neoplasm of rectum (principal) | CPT/HCPCS: 96372; J2505 ==

== ENCOUNTER → 2017-08-02 | Outpatient (CLI) | payer BC, OTHER | LOC: SPU 11:06 | PROVIDERS: ATTEND Internal Medicine | DX: C20 Malignant neoplasm of rectum (principal) | CPT/HCPCS: 96372; J2505 ==

== ENCOUNTER 2017-09-11 10:57 | Outpatient (RCR) | payer BC ==
[2017-06-19 08:56] VITALS: BP 109/78
--- NOTE | 2017-06-19 09:35 | ONC Progress Note - NP.Halsey ---
Patient History Date of Service Jun 19, 2017 Reason For Visit/HPI Patient is seen in the clinic today for follow-up with neoadjuvant FOLFOX cycle 5 chemotherapy treatment for her localized adenocarcinoma of the rectum. Patient reports that she has expected side effects of cold neuropathy on her fingers and her mouth. She also has had diarrhea almost daily over the last week and a half. She has been taken Imodium up to 6 tablets a day but feels it does not do any good. She is trying to increase oral fluids and does not feel dehydrated at this time. Her liver enzymes were previously elevated and patient' s physical scientist has discontinued her statin drug throughout treatment. Liver enzymes have significantly improved. She denies any fever or chills, she does have sinus congestion with clear nasal discharge. Problem List (1) Mass of perianal area (2) Marfans syndrome (3) S/P AVR (aortic valve replacement) Oncology History History of adenocarcinoma of the rectum and not an anal squamous cell carcinoma. PET/CT scan as well as histology identifies a low rectal cancer as opposed to an anal cancer. He has no evidence of metastatic disease. Patient may require an ostomy with surgery. She currently is receiving neoadjuvant chemotherapy with FOLFOX 8 cycles. Patient 1st noted symptoms about a year ago which she thought was a bleeding hemorrhoid. Patient has experienced significant neuropathy after starting FOLFOX with cold temperatures. Dose reduction with oxaliplatin 15% has helped some. Patient has multiple chronic medical issues including controlled congestive heart failure, Marfan syndrome, history of a valve replacement, sleep apnea and a stroke in 2001. Patient is a high-risk patient. She was started on PPI for acid in her stomach. Statin drug has been placed on hold due to elevated liver enzymes. Medical History Family History: FH: arthritis MOTHER, , Age:76 FH: congestive heart failure FATHER, Age:91, Onset:91 FH: myocardial infarction MOTHER, , Age:76 Marfan syndrome BROTHER OR SISTER BROTHER OR SISTER Psychosocial History Social History Patient is and has presented with her again. 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 Smoking History: No Smoking Status: Never Smoker Medications and Allergies Active Scripts Diphenoxylate Hcl/Atropine (DIPHENOXYLATE-ATROPINE TABLET) 1 Each Tablet, 1 EACH PO 2-4XD Y for DIARRHEA, #30 TAB 1 Refill Prov:PRICILLA LINDO [employer]-BC, ONC 06/19/17 Ondansetron (ZOFRAN ODT) 8 Mg Tab.rapdis, 8 MG PO Q8H, #30 TAB 3 Refills Prov:PRICILLA LINDO [facility]-BC, ONC 04/10/17 Alprazolam (ALPRAZOLAM ODT) 0.5 Mg Tab.rapdis, 1 TAB PO Q4-6H Y for nausea, #30 TAB 1 Refill Prov:PRICILLA LINDO [facility] [facility]-BC, ONC 04/10/17 Oxycodone Hcl/Acet 5/325 Mg (ENDOCET 5-325 TABLET) 1 Each Tablet, 1-2 TAB PO Q4H Y for PAIN, #30 TAB 0 Refills Prov:NASEEM POLANCO MD 04/04/17 Reported Medications Omeprazole Magnesium (PRILOSEC OTC) 20 Mg Tablet.dr, 1 TAB PO BID, TAB 05/20/17 Docusate Sodium (STOOL SOFTENER) 100 Mg Capsule, 100 MG PO PRN, CAPSULE 03/19/17 Potassium Chloride (POTASSIUM CHLORIDE) 10 Meq Tab.er.prt, 10 MEQ PO PRN 03/19/17 Vit C/E/Zn/Coppr/Lutein/Zeaxan (Preservision Areds 2 Softgel) 1 Each Capsule 03/19/17 Acetaminophen (TYLENOL) 325 Mg Tablet, 325 MG PO PRN, TAB 03/19/17 Tamsulosin Hcl (TAMSULOSIN HCL) 0.4 Mg Cap.er.24h, 0.4 MG PO QDAY, CAP 03/18/17 Ferrous Sulfate (FERROUS SULFATE) 140 Mg Tablet.er, 65 MG PO QDAY 03/01/17 Methylcellulose (FIBER) 500 Mg Tablet, 500 MG PO DAILY 07/28/12 Pravastatin Sodium (Pravachol) 20 Mg Tablet, 20 MG PO DAILY 07/28/12 Losartan Potassium (Losartan Potassium) 25 Mg Tablet, 25 MG PO DAILY 07/28/12 Warfarin Sodium (Coumadin) 10 Mg Tablet, 7.5 MG PO 5XWEEK It is very important that you take your coumadin exactly as prescribed, have blood work to monitor your PT/INR values, and follow up with your health care provider as prescribed. Diet and medication can affect the PT/INR level. Keep your diet pretty much the same day to day. Many foods contain Vitamin K which helps blood to clot and can affect the way your coumadin works. You don't need to avoid foods that have Vitamin K, but you do need to eat about the same amount of them every day. Be sure to tell your provider before changing your diet for any reason (weight loss, illness, etc.) Do not start or discontinue any medications, prescribed or over the counter, except on the advise of your provider or pharmacist. Coumadin (Warfarin) increases the risk of bleeding. 07/28/12 Multivitamins (Multivitamin) 1 Tab Tablet, 1 TAB PO DAILY 07/28/12 Calcium Carbonate (Tums) 500 Mg Chew, 500 MG PO DAILY 07/28/12 Docosahexanoic Acid/Epa (Fish Oil 1,000 Mg Capsule) 1 Cap Capsule, 1 CAP PO DAILY 07/28/12 Cholecalciferol (Vitamin D) 1,000 Unit Capsule, 1000 UNIT PO DAILY 07/28/12 Spironolactone (Spironolactone) 50 Mg Tablet, 50 MG PO DAILY 07/28/12 Metoprolol Tartrate (Metoprolol Tartrate) 100 Mg Tablet, 100 MG PO DAILY 07/28/12 Allergies: Coded Allergies: No Known Drug Allergies (Unverified , 07/28/12) Review of System/Physical Exam Review of Systems All Systems Reviewed/Normal: Yes, Except as Noted HEENT: Other (nasal congestion without discharge) Gastrointestinal: Diarrhea (watery diarrhea 2-3 times daily 1-2 weeks) Skin: Positive for Dry Skin Physical Exam Vital Signs Temperature: 98.5 Pulse: 47 BP Systolic: 109 BP Diastolic: 78 Respiratory Rate: 16 O2 SAT: 95 O2 Delivery: Height (inches) 68.71 Weight lb: 212 Weight oz: Weight Kg (Deonte): Pain: 0 ECOG Score: 1 (Increased fatigue due to diarrhea) General: Stable, Well Developed, Well Nourished, Not In Acute Distress HEENT: No Trauma, No Conjunctivitis, No Icterus, No Mucositis, No Oral Thrush, Sinus Tenderness Neck: Supple Lungs: Clear to Auscultation Heart: Regular Rate, Regular Rhythm Abdomen: Soft and Nontender, No Hepatosplenomegaly, No Masses, Other (bowel sounds active to hypoactive) Extremities: No Cyanosis, No Clubbing, No Edema Lymphadenopathy: No Cervical Psychiatric: Mood appears normal, Affect appears normal Skin: No Skin Rashes, No Bruising, No Purpura Diagnostic Studies Diagnostic Studies Laboratory Laboratory Tests 06/19/17 09:00 Laboratory Tests 06/19/17 09:00: White Blood Count 7.5, Hemoglobin 13.9, Hematocrit 40.6, Platelet Count 180, Neutrophils (%) (Auto) 75.0, Lymphocytes (%) (Auto) 13.9, Neutrophils # (Auto) 5.6, Lymphocytes # (Auto) 1.0, Sodium Level 140, Potassium Level 4.3, Chloride Level 104, Carbon Dioxide Level 22, Blood Urea Nitrogen 18, Creatinine 0.60, Glomerular Filtration Rate Calc > 60.0, Random Glucose 90, Calcium Level 9.6, Total Bilirubin 0.7, Aspartate Amino Transf (AST/SGOT) 48, Alanine Aminotransferase (ALT/SGPT) 75, Alkaline Phosphatase 121, Total Protein 7.3, Albumin 4.2 Assessment and Plan Assessment & Plan Mrs. Martinez is a very pleasant female with the followin. Localized adenocarcinoma of the rectum. Suspect T2 to T3 N0 M0 disease. Recommend eight cycles of FOLFOX followed by combination chemoradiation with capecitabine followed by surgery. She has met with Dr. Zhang and will meet with Dr. Mccormick or Dr. Miller in [place] in the future. T stage unknown because chemotherapy was started prior to her EUS. She is already showing signs of response. She will follow in 2 weeks. 2. 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 We already made a 15% dose reduction in her oxaliplatin. No further dose reduction needed. We will see her with each cycle. So far this is remaining stable 3. Chronic diarrhea. I will do a stool culture for C. difficile today. Patient was also given a prescription for Lomotil. She will receive hydration as needed. I personally spent a total of 20 minutes. Of that 20 minutes was counseling/ coordination of patient's care. See my note above for details. Copies to: BECKY ESPARZA MD, NANCY J FRAME CATCHER-BC, ONC Jun 19, 2017 09:35
[2017-06-19] MEDS: PALONOSETRON 0.25 MG/5 ML VIAL IVP PRN (10:13)
[2017-06-19] MEDS: DEXAMETHASONE SOD PHOS 10MG/ML IVP PRN (10:14)
[2017-06-19] MEDS: DEXTROSE 5%(*) 100 ML BAG 100 ML IVPB PRN (12:02)
[2017-06-19] MEDS: NS(*) 0.9% 500 ML BAG 500 ML IV PRN (12:02)
[2017-06-21 12:28] VITALS: BP 118/68
[2017-06-21] MEDS: HEPARIN FLSH (PORT) 500 UN/5ML IVP PRN (13:00)
[2017-06-26 15:08] VITALS: BP 109/68
[2017-06-26 15:21] LABS: PLATELET COUNT, AUTOMATED 166 K/uL (150-450)
[2017-07-01 15:22] VITALS: BP 104/67
--- NOTE | 2017-07-03 04:22 | [facility] ONCOLOGY NOTE ---
EVENT DATE: July 01, 2017 CHIEF COMPLAINT/REASON FOR VISIT The patient is a very pleasant 56-year-old female with localized adenocarcinoma of the rectum, here for followup after starting neoadjuvant FOLFOX. She is about to begin the sixth cycle out of a planned eight before transitioning to radiation therapy with Xeloda followed by surgery. HISTORY OF PRESENT ILLNESS and Mrs. Martinez return. This is an adenocarcinoma of the rectum and not an anal squamous cell carcinoma. Based on the PET scan as well as histology, this is a low rectal cancer as opposed to an anal cancer. Despite this, she may still require an ostomy with surgery, although we do not know the likelihood of this, and I am encouraged by her response thus far. The patient first noted symptoms about a year ago for what she thought was a bleeding hemorrhoid. There is no evidence of metastatic disease on the PET scan and subsequent MRI. EUS was done recently, and did not have any concerning findings, although this was done after two cycles of chemotherapy. She has had significant neuropathy after starting the FOLFOX, with cold temperatures. We made a dose reduction of 15% to the oxaliplatin. She continues to have symptoms, but they improve with each cycle. She has numerous other medical issues including controlled congestive heart failure, Marfan syndrome, history of valve replacement, sleep apnea, history of stroke in 2001. She was started on a PPI for acid in her stomach, and this has helped considerably. PAST MEDICAL/SURGICAL HISTORY 1. Chronic anemia. 2. Cataract surgery. 3. CHF. 4. Marfan syndrome. 5. History of cholecystectomy in 2001. 6. History of open heart surgery in 2001. 7. History of stroke in 2001. 8. Sleep apnea. 9. History of hemorrhoids. 10. History of incomplete blood emptying requiring a Melendez for quite some time. Believed to be a surgical complication as opposed to a cancer complication. 11. Localized adenocarcinoma of the rectum. SOCIAL HISTORY Patient is and has presented with her again. 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 FAMILY HISTORY The patient's mother may have had cancer, but it is unclear. REVIEW OF SYSTEMS CONSTITUTIONAL: No fevers, chills, significant weight change. HEENT: Positive sleep apnea. No headache or vision changes. CARDIOVASCULAR: Controlled congestive heart failure and Marfan syndrome. She has a mechanical St. Zachary valve. RESPIRATORY: No shortness of breath, wheeze, cough. GASTROINTESTINAL: No nausea, vomiting. Increased acid has improved with the PPI. GENITOURINARY: No dysuria or hematuria. The bladder seems to be improving. SKIN: No concerning lesions or rashes. HEMATOLOGICAL: No easy bruising or bleeding. IMMUNOLOGIC: No issues with infection. PSYCHIATRIC: No anxiety of depression. The remainder of the 14-point review of systems is otherwise negative. PHYSICAL EXAMINATION VITAL SIGNS: Blood pressure 104/67, pulse 71, respiratory rate 16, temperature 97.6 Fahrenheit, oxygen saturation 92% on room air. Weight 93.9 kg. Pain 0/10 , fatigue 5/10. GENERAL: Stable condition, resting comfortably in the chair. HEENT: Normocephalic, atraumatic. CARDIOVASCULAR: Regular rate and rhythm. She does have noticeable changes from the replaced heart valve. No murmur today that I can appreciate. LUNGS: Clear. ABDOMEN: Soft, nontender. EXTREMITIES: No clubbing, cyanosis or significant edema. Remainder of the physical exam unremarkable. IMPRESSION AND PLAN The patient is a pleasant 56-year-old female with the followin. Localized adenocarcinoma of the rectum. Suspect T2 to T3 N0 M0 disease. Recommend eight cycles of FOLFOX followed by combination chemoradiation with capecitabine followed by surgery. Arranged for a followup consultation with Dr. Mccormick in radiation oncology. She is already showing signs of response. No bleeding. 2. 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 We already made a 15% dose reduction in the oxaliplatin. Overall her symptoms are about the same. No further dose reduction planned at this time. We will see her with each cycle. Billing: Return visit level 5. Total time 45 minutes, counseling time 30. MTDD
[2017-07-03 09:08] VITALS: BP 119/67
[2017-07-03] MEDS: PALONOSETRON 0.25 MG/5 ML VIAL IVP PRN (09:55)
[2017-07-03] MEDS: DEXAMETHASONE SOD PHOS 10MG/ML IVP PRN (09:55)
[2017-07-03] MEDS: NS(*) 0.9% 500 ML BAG 500 ML IV PRN (09:55)
[2017-07-03] MEDS: DEXTROSE 5%(*) 100 ML BAG 100 ML IVPB PRN (09:56)
[2017-07-05 12:52] VITALS: BP 110/65
[2017-07-05] MEDS: HEPARIN FLSH (PORT) 500 UN/5ML IVP PRN (14:00)
[2017-07-10 15:16] LABS: PLATELET COUNT, AUTOMATED 222 K/uL (150-450)
[2017-07-10 15:37] VITALS: BP 105/68
[2017-07-17 09:25] VITALS: BP 108/74
[2017-07-17] MEDS: NS(*) 0.9% 500 ML BAG 500 ML IV PRN (10:00)
[2017-07-17] MEDS: PALONOSETRON 0.25 MG/5 ML VIAL IVP PRN (10:03)
[2017-07-17] MEDS: DEXAMETHASONE SOD PHOS 10MG/ML IVP PRN (10:03)
[2017-07-17 13:51] VITALS: BP 104/60
[2017-07-19] MEDS: HEPARIN FLSH (PORT) 500 UN/5ML IVP PRN (12:28)
[2017-07-19 12:29] VITALS: BP 107/80
[2017-07-24 15:20] VITALS: BP 109/64
[2017-07-24 15:37] LABS: PLATELET COUNT, AUTOMATED 175 K/uL (150-450)
[2017-07-29 15:42] VITALS: BP 104/67
--- NOTE | 2017-07-30 20:30 | ONCOLOGY FOLLOW UP NOTE ---
EVENT DATE: July 29, 2017 CHIEF COMPLAINT/REASON FOR VISIT Radha is a very pleasant 56-year-old female with localized adenocarcinoma of the rectum, here after completing her neoadjuvant FOLFOX eight cycles. She is about to transition to radiation therapy with Xeloda, followed by surgery. HISTORY OF PRESENT ILLNESS and Mrs. Martinez return with their children today. This is an adenocarcinoma of the rectum and not an anal squamous cell carcinoma. Based on the PET scan as well as histology as well as an MRI, this is a low rectal cancer as opposed to an anal cancer. Despite this she may still require an ostomy with surgery, although we defer to our surgical colleagues. The patient's first symptoms started in 2017 for what she thought was a bleeding hemorrhoid. EUS was done and did not find any considering findings, although this was done after two cycles of chemotherapy. She has had considerable neuropathy, particularly in the left leg with FOLFOX, particularly with cold temperatures. We made a dose reduction of 15% to the oxaliplatin and then subsequently discontinued it. She has numerous other medical issues including controlled congestive heart failure, Marfan syndrome, history of valve replacement, sleep apnea, history of stroke in 2001. Her stomach feels much better since starting a PPI for significant GERD. She has finished the radiation and has her simulation for radiation this . She is still having considerable fatigue, rash and other symptoms from the initial chemotherapy. I do not yet know if we will start the Xeloda on time. More importantly would be to proceed to the radiation therapy and then get to surgery. We will reassess her in the coming weeks to see if it is yet time to start the Xeloda. PAST MEDICAL/SURGICAL HISTORY 1. Chronic anemia. 2. Cataract surgery. 3. CHF. 4. Marfan syndrome. 5. History of cholecystectomy in 2001. 6. History of open heart surgery in 2001. 7. History of stroke in 2001. 8. Sleep apnea. 9. History of hemorrhoids. 10. History of incomplete blood emptying requiring a Melendez for quite some time. Believed to be a surgical complication as opposed to a cancer complication. 11. Localized adenocarcinoma of the rectum. SOCIAL HISTORY Patient is and has presented with her again. 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 FAMILY HISTORY The patient's mother may have had cancer, but it is unclear. REVIEW OF SYSTEMS CONSTITUTIONAL: No fevers, chills, significant weight change. HEENT: Positive history of sleep apnea. No headache or visual changes. SKIN: Positive rash on the hands as well as the face. This is considerable dry skin and we talked about using butter cream to help with this. She has some at home. CARDIOVASCULAR: Controlled congestive heart failure and known Marfan syndrome, as well as a mechanical St. Zachary valve. RESPIRATORY: No shortness of breath, wheeze, cough currently. GASTROINTESTINAL: No nausea, vomiting. Her GERD has improved with the PPI. GENITOURINARY: No dysuria or hematuria. Her initial bladder issues seem to be improved. HEMATOLOGICAL/LYMPHATIC: No easy bruising or bleeding. IMMUNOLOGIC: No issues with infection. PSYCHIATRIC: No anxiety of depression. ENDOCRINE: No heat or cold intolerance. The remainder of the 14-point review of systems is otherwise negative. PHYSICAL EXAMINATION VITAL SIGNS: Blood pressure 104/67, pulse 66, respiratory rate 16, temperature 97 Fahrenheit, oxygen saturation 92% on room air. Weight 81.7 kg. Pain 0/10, fatigue 6/10. GENERAL: Stable condition, resting comfortably in the chair. SKIN: The patient has considerable dry skin on the hands, as well as clubbing of the fingers. Some of this rash is present on the face as well. There is erythema with it, but it is mostly simply dry skin. No significant pruritus thankfully. Full physical exam deferred today to amount of time spent in counseling and coordination of care. Patient does have a known mechanical heart valve. IMPRESSION AND PLAN Mrs. Martinez is a pleasant 56-year-old female with the followin. Localized adenocarcinoma of the rectum. Suspect T2-T3 disease N0 M0. Recommend transition to combination chemoradiation with capecitabine followed by surgery. She finished eight cycles of neoadjuvant FOLFOX. This was complicated by significant neuropathy. The oxaliplatin was reduced and then discontinued with cycle eight. She is already showing signs of response we believe. No significant bleeding. 2. 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 No further oxaliplatin in the future regardless of her surgical outcome. Discussed how I expect the natural history of this. She will always have some neuropathy, but I am optimistic she will improve with time over many months. Plan to reassess her after initiation of radiation given the fatigue and symptoms she is having from her initial neoadjuvant chemo. I answered all of their many questions today. Billing: Return visit level 5. Total time 45 minutes, counseling time 25. High risk, high complexity. MTDD
[2017-07-31 09:04] VITALS: BP 116/64
[2017-07-31] MEDS: DEXAMETHASONE SOD PHOS 10MG/ML IVP PRN (10:07)
[2017-07-31] MEDS: NS(*) 0.9% 500 ML BAG 500 ML IV PRN (10:08)
[2017-07-31] MEDS: PALONOSETRON 0.25 MG/5 ML VIAL IVP PRN (10:08)
[2017-08-02] MEDS: HEPARIN FLSH (PORT) 500 UN/5ML IVP PRN (11:37)
[2017-08-02 11:41] VITALS: BP 94/57
[2017-08-06 10:13] VITALS: BP 105/54
[2017-08-06 10:37] LABS: PLATELET COUNT, AUTOMATED 178 K/uL (150-450)
[2017-08-14 11:31] VITALS: BP 103/60
[2017-08-14 11:39] LABS: PLATELET COUNT, AUTOMATED 215 K/uL (150-450)
[2017-08-21 12:19] LABS: PLATELET COUNT, AUTOMATED 228 K/uL (150-450)
[2017-08-21] MEDS: HEPARIN FLSH (PORT) 500 UN/5ML IVP PRN (12:26)
[2017-08-21 17:04] VITALS: BP 105/60
[~2017-09-11] VITALS: Ht 174.5 cm; Wt 93.0 kg
[~2017-09-11 10:57] MED LIST changes: +ALTEPLASE RECOMB 2 MG VIAL IVP PRN; +FLUOROURACIL 50 MG/ML SDV IVP ONE; +FLUOROURACIL IV ONE; +LEUCOVORIN CAL IV ONE; +LEUCOVORIN CALCIUM IV ONE; +LIDOCAINE/SOD BICARB 8.4% SYR ID PRN; +NS 0.9% IV ONE; +NS(*) 0.9% 100 ML BAG 100 ML IVPB PRN; +NS(*) 0.9% 1000 ML BAG 1,000 ML IV PRN; +OXALIPLATIN 100 MG/20 ML VIAL 100 MG, OXALIPLATIN 50 MG/10 ML VIAL 50 MG in D5W(*) 250 ... IVPB ONE; -PEGFILGRASTIM 6 MG/0.6 ML SYR SUBQ ONE; +WATER STERILE 10 ML VIAL IVP PRN; +[UNRECOGNIZED DRUG - OTHER] IV ONE
[2017-09-11] MEDS: HEPARIN FLSH (PORT) 500 UN/5ML IVP PRN (11:48)
[2017-09-11 12:00] LABS: PLATELET COUNT, AUTOMATED 232 K/uL (150-450)
--- NOTE | 2017-09-11 18:58 | ONCOLOGY FOLLOW UP NOTE ---
EVENT DATE: September 11, 2017 CHIEF COMPLAINT/REASON FOR VISIT Ms. Martinez is a very pleasant 56-year-old female with localized adenocarcinoma of the rectum, here after completing eight cycles of neoadjuvant FOLFOX, currently on radiation therapy with the plan to pursue surgery in the near future. HISTORY OF PRESENT ILLNESS and Mrs. Martinez return. This is an adenocarcinoma of the rectum and not an anal squamous cell carcinoma. Based on the PET scan as well as the MRI, this is a low rectal cancer as opposed to an anal squamous cell carcinoma. This is consistent with the adenocarcinoma noted on pathology as well. Despite this aggressive treatment, she may still require an ostomy with surgery, but we defer to Dr. Zhang and our surgical colleagues. She had CT simulation again last week and reportedly there was no evidence of progression, which is excellent. We do not yet have her [id number] image prior to surgery, which will occur in a few weeks. The patient's first symptoms started in 2016 for what she thought was a bleeding hemorrhoid. EUS was done and did not find any considerable findings after two cycles of therapy. This is encouraging for response. She had considerable neuropathy with FOLFOX requiring a 15% dose reduction of oxaliplatin and subsequent discontinuation. She has numerous comorbidities including congestive heart failure, Marfan syndrome, history of valve replacement, sleep apnea, history of stroke in 2001. She developed liver toxicity with chemo as well, which was still not resolved one month ago in July when I last saw her. Fortunately her liver numbers look well this month. She feels much better and I think we can consider adding the Xeloda for the last six days of chemotherapy. We ordered it a week ago and just received notice that her insurance will approve it. This took longer than expected to get insurance approval for this. I think most importantly, we completed radiation therapy and allowed her to recover to have a successful surgery, which required for cure. No new symptoms. We discussed the rationale behind this in detail and they express understanding and agreement with this plan. PAST MEDICAL/SURGICAL HISTORY 1. Chronic anemia. 2. Cataract surgery. 3. CHF. 4. Marfan syndrome. 5. History of cholecystectomy in 2001. 6. History of open heart surgery in 2001. 7. History of stroke in 2001. 8. Sleep apnea. 9. History of hemorrhoids. 10. History of incomplete blood emptying requiring a Melendez for quite some time. Believed to be a surgical complication as opposed to a cancer complication. 11. Localized adenocarcinoma of the rectum. SOCIAL HISTORY Patient is and has presented with her again. 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 FAMILY HISTORY The patient's mother may have had cancer, but it is unclear. REVIEW OF SYSTEMS CONSTITUTIONAL: No fevers, chills, weight change. HEENT: History of sleep apnea. No headache or vision changes. SKIN: Her rash is much improved. This was a major issue at her last visit in July 2017. CARDIOVASCULAR: Controlled CHF and known Marfan syndrome, as well as a mechanical St. Zachary valve. No new cardiovascular symptoms of concern during treatment, which is excellent. RESPIRATORY: No shortness of breath, wheeze, cough currently. GASTROINTESTINAL: No nausea, vomiting. She does have GERD and takes a PPI. GENITOURINARY: No dysuria or hematuria. She had bladder symptoms initially and these resolved. HEMATOLOGICAL/LYMPHATIC: No easy bruising or bleeding. IMMUNOLOGIC: No issues with infection. PSYCHIATRIC: No anxiety of depression. ENDOCRINE: No heat or cold intolerance. The remainder of the 14-point review of systems is otherwise negative. PHYSICAL EXAMINATION VITAL SIGNS: Blood pressure 104/64, pulse 96, respiratory rate 14, temperature 98.0 Fahrenheit, oxygen saturation 99% on room air. Weight 93 kg. Pain 0/10, fatigue 1/10. GENERAL: Stable condition, resting comfortably in the chair. HEENT: Normocephalic, atraumatic. SKIN: Her rash is greatly improved. Her hands look much better. PSYCHIATRIC: Normal mood and affect. She is much stronger than she was at her last visit in July. Full physical exam deferred today to amount of time spent in counseling and coordination of care. IMPRESSION AND PLAN Mrs. Martinez is a very pleasant 56-year-old female with the followin. Localized adenocarcinoma of the rectum. Suspect T2-T3 disease N0 M0. We are now ready to transition to the combination chemoradiation therapy as her liver has improved. She will have approximately one week of capecitabine assuming that insurance and delivery occur as expected in the next day or two. She completed eight cycles of neoadjuvant FOLFOX with significant neuropathy. This has improved. The oxaliplatin required reduction and subsequent discontinued with cycle eight. If we decide to give chemotherapy adjuvantly after surgery, we would use Xeloda alone and we are thankful that this is now approved. She is showing signs of response based on the EUS done after two cycles of FOLFOX, which is very encouraging. No significant bleeding with radiation. She does have some diarrhea, but that is managed. 2. 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 No further oxaliplatin in the future. We previously discussed the natural history and potential for recovery with this. In my opinion it was the right decision to let her liver recover while we continued radiation therapy, and I do not feel she could adequately tolerate chemoradiation. While the patient is young, she has numerous comorbidities and she had significant trouble with the first eight cycles of FOLFOX including the requirement to drop to single agent during those treatments. We will get her followup with Dr. Zhang in the next few weeks now that radiation will be finished at the end of next week. I answered all of their many questions. Billing: Return visit level 5. Total time 45 minutes, counseling time 25. Multiple conversations and communications with Dr. Mccormick, Dr. Zhang, nursing staff over the day and the past several weeks. High risk, high complexity. MTDD
== END 2017-09-16 ==
LOC: SPU 10:57
PROVIDERS: ATTEND Internal Medicine
DX: Z51.11 Encounter for antineoplastic chemotherapy (principal); C20 Malignant neoplasm of rectum; G62.0 Drug-induced polyneuropathy; K52.9 Noninfective gastroenteritis and colitis, unspecified; Z79.899 Other long term (current) drug therapy; I50.9 Heart failure, unspecified; Q87.40 Marfan syndrome, unspecified
CPT/HCPCS: 36415; 36591; 82378; 85025; 85027; 96365; 96366; 96367; 96368; 96375; 96409; 96411; 96413; 96415; 96416; 96523; 99212; J0640; J1100; J1642; J2469; J7030; J7040; J7060; J9190; J9263; 82040; 82247; 82310; 82374; 82435; 82565; 82947; 84075; 84132; 84155; 84295; 84450; 84460; 84520

== ENCOUNTER 2017-09-19 11:23 | Outpatient (RCR) | payer BC, OTHER ==
[~2017-09-19 11:23] MED LIST changes: -ALTEPLASE RECOMB 2 MG VIAL IVP PRN; -FLUOROURACIL 50 MG/ML SDV IVP ONE; -FLUOROURACIL IV ONE; -LEUCOVORIN CAL IV ONE; -LEUCOVORIN CALCIUM IV ONE; -LIDOCAINE/SOD BICARB 8.4% SYR ID PRN; -NS 0.9% IV ONE; -NS(*) 0.9% 100 ML BAG 100 ML IVPB PRN; -NS(*) 0.9% 1000 ML BAG 1,000 ML IV PRN; -OXALIPLATIN 100 MG/20 ML VIAL 100 MG, OXALIPLATIN 50 MG/10 ML VIAL 50 MG in D5W(*) 250 ... IVPB ONE; -WATER STERILE 10 ML VIAL IVP PRN; -[UNRECOGNIZED DRUG - OTHER] IV ONE
== END 2017-09-29 ==
LOC: RAON 11:23
PROVIDERS: ATTEND Radiology Radiation Oncology
DX: Z51.0 Encounter for antineoplastic radiation therapy (principal); C21.1 Malignant neoplasm of anal canal; Z79.899 Other long term (current) drug therapy; I50.9 Heart failure, unspecified; E66.9 Obesity, unspecified
CPT/HCPCS: 77280; 77290; 77300; 77301; 77336; 77338; 77386; 99203

== ENCOUNTER 2017-11-06 11:31 | Emergency (ER) | payer BC ==
--- NOTE | 2017-11-06 11:46 | ER Report ---
History and Physical Time Seen By MD: 11:40 Hx. of Stated Complaint: blood in urine since saturday night slight discomfort when urinating HPI/ROS Chief Concern: blood in urine History of Present Illnesses: 56-year-old female presents to the emergency department and reports she noticed blood in her urine starting Saturday. States she does have a burning sensation at her urethra. Unsure if the bleeding is coming from her vagina or her urethra. Reports going through menopause and not having a period but unsure of her last menstrual cycle. No other associated symptoms including increased burning with urination, hesitancy, or urgency. No treatments tried. Further reports a headache that started this morning. Denies that this is the worst headache she has ever had in her life. States she feels it may be a pulled muscle in her right shoulder. No treatments tried. Reports a history of changes in her bowel movements associated with her history of rectal cancer. Last chemotherapy treatment Constitutional. Denies recent illness, malaise, chills, fever, change in mental status, or memory. Denies weight loss or weight gain. HEENT. Denies headache. No difficulty hearing, no ear pain. No eye pain, no dry eyes, no vision changes, no eye irritation. No nosebleeds, no nose problems, no sinus congestion. No teeth abnormalities, no sore throat, no bleeding gums, no dry mouth, no mouth ulcers. Cardiovascular. Denies chest pain, palpitations, or diaphoresis. Respiratory. Denies cough, shortness of breath, or wheezing. Gastrointestinal System. Denies nausea, vomiting, hematochezia, or black stools. Genitourinary. Denies lower back pain, hematuria, painful voiding, or trouble with emptying bladder. Musculoskeletal. Denies muscular pain, no joint pain. Psychiatric. Denies feelings of anxiety, stress, feelings of sadness, or mood disturbances. No hallucinations or thoughts of suicide. Allergic/Immunologic. Denies joint pain or weakness. Allergies: Coded Allergies: No Known Drug Allergies (Unverified , 11/06/17) Home Meds Active Scripts Ciprofloxacin Hcl (CIPROFLOXACIN HCL) 500 Mg Tablet, 500 MG PO Q12H for 7 Days, #14 TAB Prov:SHEREEN GEORGE [facility] 11/06/17 Diphenoxylate Hcl/Atropine (DIPHENOXYLATE-ATROPINE TABLET) 1 Each Tablet, 1 EACH PO 2-4XD Y for DIARRHEA, #30 TAB 1 Refill Prov:PRICILLA LINDO [facility]MI[employer]-BC, ONC 06/19/17 Reported Medications Warfarin Sodium (WARFARIN SODIUM) 5 Mg Tablet, 5 MG PO DIRECTED, TAB 11/06/17 Omeprazole Magnesium (PRILOSEC OTC) 20 Mg Tablet.dr, 1 TAB PO BID, TAB 05/20/17 Acetaminophen (TYLENOL) 325 Mg Tablet, 325 MG PO PRN, TAB 03/19/17 Losartan Potassium (Losartan Potassium) 25 Mg Tablet, 25 MG PO DAILY 07/28/12 Warfarin Sodium (Coumadin) 10 Mg Tablet, 7.5 MG PO 5XWEEK It is very important that you take your coumadin exactly as prescribed, have blood work to monitor your PT/INR values, and follow up with your health care provider as prescribed. Diet and medication can affect the PT/INR level. Keep your diet pretty much the same day to day. Many foods contain Vitamin K which helps blood to clot and can affect the way your coumadin works. You don't need to avoid foods that have Vitamin K, but you do need to eat about the same amount of them every day. Be sure to tell your provider before changing your diet for any reason (weight loss, illness, etc.) Do not start or discontinue any medications, prescribed or over the counter, except on the advise of your provider or pharmacist. Coumadin (Warfarin) increases the risk of bleeding. 07/28/12 Multivitamins (Multivitamin) 1 Tab Tablet, 1 TAB PO DAILY 07/28/12 Docosahexanoic Acid/Epa (Fish Oil 1,000 Mg Capsule) 1 Cap Capsule, 1 CAP PO DAILY 07/28/12 Cholecalciferol (Vitamin D) 1,000 Unit Capsule, 1000 UNIT PO DAILY 07/28/12 Spironolactone (Spironolactone) 50 Mg Tablet, 50 MG PO DAILY 07/28/12 Metoprolol Tartrate (Metoprolol Tartrate) 100 Mg Tablet, 100 MG PO DAILY 07/28/12 Discontinued Reported Medications Docusate Sodium (STOOL SOFTENER) 100 Mg Capsule, 100 MG PO PRN, CAPSULE 03/19/17 Potassium Chloride (POTASSIUM CHLORIDE) 10 Meq Tab.er.prt, 10 MEQ PO PRN 03/19/17 Vit C/E/Zn/Coppr/Lutein/Zeaxan (Preservision Areds 2 Softgel) 1 Each Capsule 03/19/17 Tamsulosin Hcl (TAMSULOSIN HCL) 0.4 Mg Cap.er.24h, 0.4 MG PO QDAY, CAP 03/18/17 Ferrous Sulfate (FERROUS SULFATE) 140 Mg Tablet.er, 65 MG PO QDAY 03/01/17 Methylcellulose (FIBER) 500 Mg Tablet, 500 MG PO DAILY 07/28/12 Calcium Carbonate (Tums) 500 Mg Chew, 500 MG PO DAILY 07/28/12 Discontinued Scripts Alprazolam (ALPRAZOLAM ODT) 0.5 Mg Tab.rapdis, 1 TAB PO Q4-6H Y for nausea, #30 TAB 1 Refill Prov:PRICILLA LINDO CHEMIST [employer]GANIC-BC, ONC 04/10/17 Ondansetron (ZOFRAN ODT) 8 Mg Tab.rapdis, 8 MG PO Q8H, #30 TAB 3 Refills Prov:PRICILLA LINDO CHEMIST [employer]GANIC-BC, ONC 04/10/17 Oxycodone Hcl/Acet 5/325 Mg (ENDOCET 5-325 TABLET) 1 Each Tablet, 1-2 TAB PO Q4H Y for PAIN, #30 TAB 0 Refills Prov:NASEEM POLANCO MD 04/04/17 Past Medical/Surgical History Past medical history: CVA, arthritis, scoliosis, GERD, rectal cancer Past surgical history: cardiac valve replacement (03/2012), wisdom teeth removed as a child Hx Smoking: No Smoking Status: Never Smoker Hx Alcohol Use: No Constitutional Vital Sign - Last 24 Hours 11/06/17 11/06/17 11/06/17 11:37 12:59 13:53 Temp 98.0 Pulse 86 78 77 Resp 14 14 14 B/P (MAP) 105/66 102/58 (73) 114/61 (78) Pulse Ox 99 97 95 O2 Delivery Room Air Room Air Room Air Physical Exam Physical Examination: Constitutional: 56-year-old female in no acute distress. Skin: [place] and well perfused BL. No evidence of generalized rash. Generally, warm and dry to touch. HEENT: Normocephalic and atraumatic. Non-injected. No exudates. PERRLA. Corneas grossly intact. Neck: Neck supple, erect, trachea midline, no masses. Lymph nodes- cervical chain, pre-and post-auricular, occipital, mandibular, and submental lymph nodes non-tender and non-palpable. BL parotid glands non-tender and non-palpable. Cardiovascular: 2+ radial pulses BL equal. PMI - left midclavicular at the 5th ICS. Aortic, pulmonic, tricuspid, and mitral areas - clear S1/S2; no murmur, clicking sound consistent with prosthetic heart valve, no S3, or S4. Respiratory: Respiratory Excursion BL equal and symmetrical; no presence of lag ; quiet, rhythmic and effortless. No retractions. BL clear and equal. GI: obese, normoactive bowels sounds x4 quadrants, suprapubic pain, no CVA tenderness Musculoskeletal: Active motion of all extremities. Neurologic: Alert. Language clear. Cranial nerves grossly intact. Differential Diagnoses: UTI, pyelonephritis, GI bleed, metastatic cancer Medical Decision Making Data Points Result Diagram: 11/06/17 1239 11/06/17 1239 Laboratory Hematology Test 11/06/17 12:39 11/06/17 12:51 Red Blood Count 3.91 M/uL (4.17-5.56) Mean Corpuscular Volume 91.6 fL (80.0-96.0) Mean Corpuscular Hemoglobin 32.0 pg (26.0-33.0) Mean Corpuscular Hemoglobin Concent 34.9 g/dL (32.0-36.0) Red Cell Distribution Width 13.2 % (11.5-14.5) Mean Platelet Volume 6.7 fL (7.2-11.1) Neutrophils (%) (Auto) 66.4 % (39.4-72.5) Lymphocytes (%) (Auto) 18.1 % (17.6-49.6) Monocytes (%) (Auto) 11.9 % (4.1-12.4) Eosinophils (%) (Auto) 3.3 % (0.4-6.7) Basophils (%) (Auto) 0.3 % (0.3-1.4) Nucleated RBC Relative Count (auto) 0.1 /100WBC Neutrophils # (Auto) 2.2 K/uL (2.0-7.4) Lymphocytes # (Auto) 0.6 K/uL (1.3-3.6) Monocytes # (Auto) 0.4 K/uL (0.3-1.0) Eosinophils # (Auto) 0.1 K/uL (0.0-0.5) Basophils # (Auto) 0.0 K/uL (0.0-0.1) Nucleated RBC Absolute Count (auto) 0.00 K/uL Prothrombin Time 33.9 seconds (12.0-14.4) Prothromb Time International Ratio 3.25 Sodium Level 139 mmol/L (137-145) Potassium Level 3.8 mmol/L (3.5-5.0) Chloride Level 105 mmol/L (98-107) Carbon Dioxide Level 24 mmol/L (22-31) Blood Urea Nitrogen 21 mg/dl (7-18) Creatinine 0.60 mg/dl (0.52-1.04) Glomerular Filtration Rate Calc > 60.0 Random Glucose 86 mg/dl (75-110) Calcium Level 9.1 mg/dl (8.4-10.2) Total Bilirubin 0.8 mg/dl (0.2-1.3) Aspartate Amino Transf (AST/SGOT) 37 U/L (0-35) Alanine Aminotransferase (ALT/SGPT) 39 U/L (0-56) Alkaline Phosphatase 88 U/L (0-126) Total Protein 6.5 g/dl (6.3-8.2) Albumin 4.0 g/dl (3.5-5.0) Urine Color Karen Urine Clarity Turbid Urine pH 5.0 pH (4.8-9.5) Urine Specific [place] 1.020 Urine Protein 100 mg/dL (NEGATIVE) Urine Glucose (UA) Negative mg/dL (NEGATIVE) Urine Ketones Negative mg/dL (NEGATIVE) Urine Blood Large (NEGATIVE) Urine Nitrite Positive (NEGATIVE) Urine Bilirubin Negative (NEGATIVE) Urine Urobilinogen Negative mg/dL (0.2-1.9) Urine Leukocyte Esterase Large (NEGATIVE) Urine RBC 2398 /HPF (0-2/HPF) Urine WBC 754 /HPF (0-5/HPF) Urine WBC Clumps Many /HPF Urine Squamous Epithelial Cells Many /LPF (</=FEW) Urine Bacteria Many /HPF (NONE-FEW) Urine Mucus Few /HPF (NONE-FEW) Chemistry Test 11/06/17 12:39 11/06/17 12:51 White Blood Count 3.3 k/uL (4.5-11.0) Red Blood Count 3.91 M/uL (4.17-5.56) Hemoglobin 12.5 g/dL (12.0-16.0) Hematocrit 35.9 % (34.0-47.0) Mean Corpuscular Volume 91.6 fL (80.0-96.0) Mean Corpuscular Hemoglobin 32.0 pg (26.0-33.0) Mean Corpuscular Hemoglobin Concent 34.9 g/dL (32.0-36.0) Red Cell Distribution Width 13.2 % (11.5-14.5) Platelet Count 207 K/uL (150-450) Mean Platelet Volume 6.7 fL (7.2-11.1) Neutrophils (%) (Auto) 66.4 % (39.4-72.5) Lymphocytes (%) (Auto) 18.1 % (17.6-49.6) Monocytes (%) (Auto) 11.9 % (4.1-12.4) Eosinophils (%) (Auto) 3.3 % (0.4-6.7) Basophils (%) (Auto) 0.3 % (0.3-1.4) Nucleated RBC Relative Count (auto) 0.1 /100WBC Neutrophils # (Auto) 2.2 K/uL (2.0-7.4) Lymphocytes # (Auto) 0.6 K/uL (1.3-3.6) Monocytes # (Auto) 0.4 K/uL (0.3-1.0) Eosinophils # (Auto) 0.1 K/uL (0.0-0.5) Basophils # (Auto) 0.0 K/uL (0.0-0.1) Nucleated RBC Absolute Count (auto) 0.00 K/uL Prothrombin Time 33.9 seconds (12.0-14.4) Prothromb Time International Ratio 3.25 Glomerular Filtration Rate Calc > 60.0 Calcium Level 9.1 mg/dl (8.4-10.2) Total Bilirubin 0.8 mg/dl (0.2-1.3) Aspartate Amino Transf (AST/SGOT) 37 U/L (0-35) Alanine Aminotransferase (ALT/SGPT) 39 U/L (0-56) Alkaline Phosphatase 88 U/L (0-126) Total Protein 6.5 g/dl (6.3-8.2) Albumin 4.0 g/dl (3.5-5.0) Urine Color Karen Urine Clarity Turbid Urine pH 5.0 pH (4.8-9.5) Urine Specific [place] 1.020 Urine Protein 100 mg/dL (NEGATIVE) Urine Glucose (UA) Negative mg/dL (NEGATIVE) Urine Ketones Negative mg/dL (NEGATIVE) Urine Blood Large (NEGATIVE) Urine Nitrite Positive (NEGATIVE) Urine Bilirubin Negative (NEGATIVE) Urine Urobilinogen Negative mg/dL (0.2-1.9) Urine Leukocyte Esterase Large (NEGATIVE) Urine RBC 2398 /HPF (0-2/HPF) Urine WBC 754 /HPF (0-5/HPF) Urine WBC Clumps Many /HPF Urine Squamous Epithelial Cells Many /LPF (</=FEW) Urine Bacteria Many /HPF (NONE-FEW) Urine Mucus Few /HPF (NONE-FEW) Coagulation Test 11/06/17 12:39 Prothrombin Time 33.9 seconds Prothromb Time International Ratio 3.25 Urinalysis Test 11/06/17 12:51 Urine Color Karne Urine Clarity Turbid Urine pH 5.0 pH (4.8-9.5) Urine Specific [place] 1.020 Urine Protein 100 mg/dL (NEGATIVE) Urine Glucose (UA) Negative mg/dL (NEGATIVE) Urine Ketones Negative mg/dL (NEGATIVE) Urine Blood Large (NEGATIVE) Urine Nitrite Positive (NEGATIVE) Urine Bilirubin Negative (NEGATIVE) Urine Urobilinogen Negative mg/dL (0.2-1.9) Urine Leukocyte Esterase Large (NEGATIVE) Urine RBC 2398 /HPF (0-2/HPF) Urine WBC 754 /HPF (0-5/HPF) Urine WBC Clumps Many /HPF Urine Squamous Epithelial Cells Many /LPF (</=FEW) Urine Bacteria Many /HPF (NONE-FEW) Urine Mucus Few /HPF (NONE-FEW) ED Course/Re-evaluation ED Course 56-year-old female patient presents to the emergency department after noticing blood in her urine since Saturday. History and physical examination obtained. Differential diagnoses considered and shared with the patient. CBC, CMP, UA, and INR obtained. UA indicated significant urinary tract infection. The CBC indicated neutropenia and low RBCs consistent with her recent treatment of chemotherapy last received September 19. The patient has been told that we will treat the UTI with antibiotics but I would like her to have a low threshold for returning to the emergency department if her condition does not improve or worsens provider her significant past medical history. The patient states agreement. She has been placed on Ciprofloxacin for 7 days and encouraged to drink plenty of water. She has further been instructed to skip her warfarin dose tomorrow and then continue taking it as usual. She has been instructed to have her INR re-checked on Saturday due to the potential elevation of INR that can occur with Ciprofloxacin use. The patient states understanding and has no further questions at this time. Decision to Disposition Date: Nov 06, 2017 Decision to Disposition Time: 14:12 Depart Departure Latest Vital Signs Vital Signs Date Time Temp Pulse Resp B/P (MAP) Pulse Ox O2 Delivery O2 Flow Rate FiO2 11/06/17 13:53 77 14 114/61 (78) 95 Room Air 11/06/17 11:37 98.0 Impression: Primary Impression: Urinary tract infection Condition: Improved Disposition: HOME OR SELF-CARE Referrals: BECKY ESPARZA MD (PCP) New Scripts Ciprofloxacin Hcl (CIPROFLOXACIN HCL) 500 Mg Tablet 500 MG PO Q12H for 7 Days, #14 TAB Prov: SHEREEN GEORGE 11/06/17 Departure Forms: ER Transition Record, Medications Reconciliation, Patient Portal Information Patient Instructions: Catheter-associated Urinary Tract Infection (ED) Additional Instructions: Take antibiotics - Ciprofloxacin once in the morning and once at night for 7 days. Take antibiotics with food and drink plenty of water. Skip your dose of warfarin tomorrow. Follow up with your primary care provider and have your INR checked on Saturday. Return to the emergency department if your condition does not improve or worsens. Problem Qualifiers Primary Impression: Urinary tract infection Urinary tract infection type: acute cystitis Hematuria presence: with hematuria Qualified Codes: N30.01 - Acute cystitis with hematuria SHEREEN GEORGE Nov 06, 2017 11:45
[2017-11-06] MEDS ORDERED: WARF5TAB23 PO (12:22)
[2017-11-06 13:00] LABS: PLATELET COUNT, AUTOMATED 207 K/uL (150-450)
[2017-11-06 13:07] LABS: INR 3.25
[2017-11-06 13:53] VITALS: BP 114/61
[2017-11-06] MEDS ORDERED: CIPR-214 PO (13:53)
[2017-11-06] MEDS ORDERED: HEPARIN FLSH (PORT) 500 UN/5ML IVP ONE (14:00)
== END 2017-11-06 14:12 | disposition home or self-care (01) ==
LOC: ER 11:38
DX: N30.01 Acute cystitis with hematuria (principal)
CPT/HCPCS: 81001; 85025; 85610; 96374; 99283; J1642; 82040; 82247; 82310; 82374; 82435; 82565; 82947; 84075; 84132; 84155; 84295; 84450; 84460; 84520

== ENCOUNTER 2017-11-18 09:00 | Outpatient (RCR) | payer BC, OTHER ==
--- NOTE | 2017-08-23 14:10 | PT PLAN OF CARE ---
Physician: CALEB Mon Patient is being seen: 1x/Week Therapist: Abiola Pinto, PT, DPT, CLT Medical Diagnosis: Anal Adenocarcinoma Treatment Diagnosis: Anal Adenocarcinoma, Neck stiffness, Patellofemoral syndrome Date of Onset: 04/10/17 Date of Initial Evaluation: 04/10/17 Date patient was last seen: 08/22/17 Number of treatments: 6 Number of cancellations/No shows: 0 INTERVENTIONS: Manual Therapy/STM/MET Strengthening/condition Ice/Heat Range of Motion Spinal Stabilization Ultrasound Stretching Iontophoresis Neuromuscular Re-ed Closed Chain Program Electrical Stim Posture/Body mechanics Gait Trg/Balance Trg Biofeedback Home Exercise Program Mech./Manual Traction Therapeutic Activities Pelvic Floor GOALS: In 4 weeks pt will decrease R neck and shoulder pain to 0/10 with improved cervical mobility to WFL for increased function with ADL's. MET In 3 months pt will maintain FACT-G score of >79/108 indicating maintenance of functional well-being. MET In 3 months pt will decrease L knee and hip pain to < 2/10 with walking and ADL' s for increased functional mobility. MET In 3 months pt will maintain ECOG performance status of grade 2 or less for improved outcomes with ongoing oncological intervention and maintenance of function. MET In 6 months pt will maintain FACT-G score of >79/108 indicating maintenance of functional well-being. In 6 months pt will maintain ECOG performance status of grade 2 or less for improved outcomes with ongoing oncological intervention and maintenance of function. PATIENT'S GOAL: Maintain function, decrease neck pain and hip pain. Status of Patient's Goals: In Progress Patient Compliance: Good Prognosis: Good Reasons for continuing therapy: Radha shows slight decrease in strength and stability with poor compliance with HEP. Pt to increase PT frequency to level of toleration to improve deficits from neuropathy in balance resulting in a recent fall as well as decreases in strength. Pt is now on her 9th round of radiation out of an anticipated 28 rounds with minimal side-effects other than slight skin irritation. Pt educated on importance of maintaining pelvic mobility and to monitor any changes in bowel or bladder continence, output or urgency with progressing treatment. Despite increased side-effects, pt shows improved pain with treatment without any lingering pain at this time. Posture: Rounded shoulders posture with increased thoracic kyphosis and forward head. ROM: LE and UE ROM WFL. Cervical ROM full with stretch end range. Strength: LE MMT: Hip: Flexion: B 4/5, Ext: B 4/5, Abd: B 4/5, Add: L 4+/5, R 4/ 5. Knee: Flexion: B 4/5, Ext: B 4+/5. Sensation: Pt reports neuropathy in L foot>R Other Objective Findings: ECOG Performance Status: Grade 2 FACT-G (Initial EVAL 04/10/17): PWB: 25/, SWB: , EWB: , FWB: 03/12, Total: 79/108 FACT-G 05/08/17: PWB: 16/, SWB: 25.5/, EWB: 17.09/05, FWB: , Total: 78/ 108 FACT-G 08/22/17: PWB: 23.5/28, SWB: , EWB: , FWB: , Total: 94.5/ 108 If you have any questions or concerns, please feel free to contact me at [phone]. Thank you, Abiola Pinto, PT, DPT, CLT MTDD
--- NOTE | 2017-09-17 11:56 | PT PLAN OF CARE ---
Physician: Jude Clements MD Patient is being seen: 1x/MO Therapist: Abiola Pinto, PT, DPT, CLT Medical Diagnosis: Anal Adenocarcinoma Treatment Diagnosis: Anal Adenocarcinoma, Neck stiffness, Patellofemoral syndrome Date of Onset: 04/10/17 Date of Initial Evaluation: 04/10/17 Date patient was last seen: 09/17/17 Number of treatments: 7 Number of cancellations/No shows: 0 INTERVENTIONS: Manual Therapy/STM/MET Strengthening/condition Ice/Heat Range of Motion Spinal Stabilization Ultrasound Stretching Iontophoresis Neuromuscular Re-ed Closed Chain Program Electrical Stim Posture/Body mechanics Gait Trg/Balance Trg Biofeedback Home Exercise Program Mech./Manual Traction Therapeutic Activities Pelvic Floor GOALS: In 4 weeks pt will decrease R neck and shoulder pain to 0/10 with improved cervical mobility to WFL for increased function with ADL's. MET In 3 months pt will maintain FACT-G score of >79/108 indicating maintenance of functional well-being. MET In 3 months pt will decrease L knee and hip pain to < 2/10 with walking and ADL' s for increased functional mobility. MET In 3 months pt will maintain ECOG performance status of grade 2 or less for improved outcomes with ongoing oncological intervention and maintenance of function. MET In 6 months pt will maintain FACT-G score of >79/108 indicating maintenance of functional well-being. In 6 months pt will maintain ECOG performance status of grade 2 or less for improved outcomes with ongoing oncological intervention and maintenance of function. PATIENT'S GOAL: Maintain function, decrease neck pain and hip pain. Status of Patient's Goals: In Progress Patient Compliance: Good Prognosis: Good Reasons for continuing therapy: Radha is just finishing up her radiation treatment which will later be followed by surgery. At this time Radha shows slight increased fatigue with ADL's as well as unsteady gait and muscle weakness with transfers and functional mobility. Pt denies urinary urgency or incontinence, but occasionally reports bowel incontinence which is becoming less frequent. Per pt preference, she would like to have a couple weeks away from treatment and then would like to initiate survivorship therapy to regain strength and stability with ADL's. No charge was issued for this session secondary to no skilled intervention with PT consultation. Pt to initiate formal PT treatment in October with increased frequency to 3x/Week with likely strengthening, endurance, stability training as well as pelvic floor rehabilitation. Posture: Rounded shoulders posture with increased thoracic kyphosis and forward head. ROM: LE and UE ROM WFL. Cervical ROM full with stretch end range. Strength: LE MMT: Hip: Flexion: B 4/5, Ext: B 4/5, Abd: B 4/5, Add: L 4+/5, R 4/ 5. Knee: Flexion: B 4/5, Ext: B 4+/5. Sensation: Pt reports neuropathy in L foot>R Other Objective Findings: ECOG Performance Status: Grade 2 FACT-G (Initial EVAL 04/10/17): PWB: 25, SWB: , EWB: , FWB: 03/12, Total: 79/108 FACT-G 05/08/17: PWB: 16, SWB: 25.09/09, EWB: 17.09/05, FWB: , Total: 78/ 108 FACT-G 08/22/17: PWB: 23.5/, SWB: , EWB: , FWB: , Total: 94.5/ 108 FACT-G 09/17/17: PWB: 23, SWB: , EWB: , FWB: , Total: 95/108 If you have any questions or concerns, please feel free to contact me at [phone]. Thank you, Abiola Pinto, PT, DPT, CLT [facility]
--- NOTE | 2017-11-13 13:05 | PT PLAN OF CARE ---
Physician: CALEB Mon Patient is being seen: 2-3x/Week Therapist: Abiola Pinto, PT, DPT, CLT Medical Diagnosis: Anal Adenocarcinoma Treatment Diagnosis: Anal Adenocarcinoma, Neck stiffness, Patellofemoral syndrome Date of Onset: 04/10/17 Date of Initial Evaluation: 04/10/17 Date patient was last seen: 11/13/17 Number of treatments: 17 Number of cancellations/No shows: 1 INTERVENTIONS: Manual Therapy/STM/MET Strengthening/condition Ice/Heat Range of Motion Spinal Stabilization Ultrasound Stretching Iontophoresis Neuromuscular Re-ed Closed Chain Program Electrical Stim Posture/Body mechanics Gait Trg/Balance Trg Biofeedback Home Exercise Program Mech./Manual Traction Therapeutic Activities Pelvic Floor GOALS: In 4 weeks pt will decrease R neck and shoulder pain to 0/10 with improved cervical mobility to WFL for increased function with ADL's. MET In 3 months pt will maintain FACT-G score of >79/108 indicating maintenance of functional well-being. MET In 3 months pt will decrease L knee and hip pain to < 2/10 with walking and ADL' s for increased functional mobility. MET In 3 months pt will maintain ECOG performance status of grade 2 or less for improved outcomes with ongoing oncological intervention and maintenance of function. MET In 6 months pt will maintain FACT-G score of >79/108 indicating maintenance of functional well-being. MET In 6 months pt will maintain ECOG performance status of grade 2 or less for improved outcomes with ongoing oncological intervention and maintenance of function. PATIENT'S GOAL: Maintain function, decrease neck pain and hip pain. Status of Patient's Goals: In Progress Patient Compliance: Good Prognosis: Good Reasons for continuing therapy: Radha shows regained progress with pelvic floor activation and endurance following recent UTI. Pt knee strength shows improvement, but requires frequent cuing on alignment and position with exercise. Further PT is indicated to continue with progress towards return to prior level of function and regaining strength compared to prior to oncological treatment. Posture: Rounded shoulders posture with increased thoracic kyphosis and forward head. ROM: LE and UE ROM WFL. Cervical ROM full with stretch end range. Strength: LE MMT: Hip: Flexion: L 4/5, R 4+/5, Ext: B 4+/5, Abd: B 4+/5, Add: B 5/5. Knee: Flexion: L 4/5, R 5/5, Ext: B 4+/5. Sensation: Pt reports neuropathy in L foot>R Other Objective Findings: ECOG Performance Status: Grade 2 FACT-G (Initial EVAL 04/10/17): PWB: 25, SWB: , EWB: , FWB: 03/12, Total: 79/108 FACT-G 05/08/17: PWB: 16, SWB: 25.09/09, EWB: 17.09/05, FWB: , Total: 78/ 108 FACT-G 08/22/17: PWB: 23.09/09, SWB: , EWB: , FWB: , Total: 94.5/ 108 FACT-G 09/17/17: PWB: , SWB: , EWB: , FWB: , Total: 95/108 FACT-G 11/04/17: PWB: 25.5/, SWB: , EWB: 23.09/05, FWB: , Total: 99/ 108 If you have any questions or concerns, please feel free to contact me at . Thank you, Abiola Pinto, PT, DPT, CLT MTDD
[~2017-11-18 09:00] MED LIST changes: +CIPR-214 PO; +WARF5TAB23 PO
[2017-11-20] MEDS ORDERED: PRAV20TA65 PO (14:26)
[2017-11-20] MEDS ORDERED: PYRI100T57 PO (14:26)
[2017-11-20] MEDS ORDERED: AREDS PO (14:26)
[2017-11-20] MEDS ORDERED: CHOL500045 PO (14:26)
[2017-11-20] MEDS ORDERED: OMEP40CA48 PO (14:29)
[2017-11-20] MEDS ORDERED: GABA-549 PO (14:36)
== END 2017-11-20 ==
LOC: PT 09:00
PROVIDERS: ATTEND Internal Medicine Medical Oncology
DX: C21.1 Malignant neoplasm of anal canal (principal); M43.6 Torticollis; M25.511 Pain in right shoulder; M25.552 Pain in left hip; M22.2X2 Patellofemoral disorders, left knee; Q87.40 Marfan syndrome, unspecified; I50.9 Heart failure, unspecified; Z86.73 Personal history of transient ischemic attack (TIA), and cerebral infarction without residual deficits

== ENCOUNTER → 2017-12-02 | Outpatient (CLI) | payer BC ==
[~2017-12-02] MED LIST changes: +AREDS PO; +CHOL500045 PO; +GABA-549 PO; +OMEP40CA48 PO; +PYRI100T57 PO
== END ==
LOC: LAB 11:40
PROVIDERS: ATTEND Emergency Medicine
DX: R82.99 Other abnormal findings in urine (principal)
CPT/HCPCS: 81001

== ENCOUNTER 2017-12-06 09:54 | Outpatient (RCR) | payer BC ==
[2017-10-10] MEDS: HEPARIN FLSH (PORT) 500 UN/5ML IVP PRN (11:02)
[2017-10-10 11:15] VITALS: BP 117/84
[2017-11-04 14:32] VITALS: BP 103/62
--- NOTE | 2017-11-06 10:34 | [facility] ONCOLOGY NOTE ---
EVENT DATE: November 04, 2017 CHIEF COMPLAINT/REASON FOR VISIT Ms. Martinez is a pleasant 57-year-old female with localized adenocarcinoma of the rectum, having completed eight cycles of neoadjuvant FOLFOX followed by radiation therapy. HISTORY OF PRESENT ILLNESS and Mrs. Martinez return. This is adenocarcinoma of the rectum and not an anal squamous cell carcinoma. Based on the PET scan as well as the MRI, it is a low rectal cancer as opposed to the squamous cell carcinoma. Normally, in the past, we would consider surgery at this point with curative intent. However , she has met with Dr. Zhang and has made the decision to pursue serial biopsies every three months. I defer to the tumor board and Dr. Zhang on this decision. She is doing well and is recovering very well. She would be due for her next biopsy with Dr. Cassidy in approximately two months and I will see her after that time. ONCOLOGY HISTORY The patient's first symptoms started in 2017 for what she thought was a bleeding hemorrhoid. EUS was done and did not find any considerable findings after two cycles of therapy, thought. This was very encouraging for response. She had considerable neuropathy and required at 15% dose reduction of oxaliplatin and subsequent discontinuation. She has numerous comorbidities including congestive heart failure, Marfan syndrome, history of valve replacement, sleep apnea, history of stroke in 2001. She also developed liver toxicity with chemo but this has improved. Due to the significant side effects and liver toxicity, we did not add Xeloda to her radiation therapy as well as a small insurance delay when we decided that she had recovered enough to consider the addition of the Xeloda. Thus, she did not get any. PAST MEDICAL/SURGICAL HISTORY 1. Chronic anemia. 2. Cataract surgery. 3. CHF. 4. Marfan syndrome. 5. History of cholecystectomy in 2001. 6. History of open heart surgery in 2001. 7. History of stroke in 2001. 8. Sleep apnea. 9. History of hemorrhoids. 10. History of incomplete blood emptying requiring a Melendez for quite some time. Believed to be a surgical complication as opposed to a cancer complication. 11. Localized adenocarcinoma of the rectum. SOCIAL HISTORY Patient is and has presented with her again. 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 FAMILY HISTORY The patient's mother may have had cancer, but it is unclear. REVIEW OF SYSTEMS CONSTITUTIONAL: No fevers, chills, weight change. HEENT: History of sleep apnea. No headache or vision changes. SKIN: Her rash is much improved. This was a major issue at her last visit in July 2017. CARDIOVASCULAR: Controlled CHF and known Marfan syndrome, as well as a mechanical [employer]. Zachary valve. No new cardiovascular symptoms of concern during treatment, which is excellent. RESPIRATORY: No shortness of breath, wheeze, cough currently. GASTROINTESTINAL: No nausea, vomiting. She does have GERD and takes a PPI. GENITOURINARY: No dysuria or hematuria. She had bladder symptoms initially and these resolved. HEMATOLOGICAL/LYMPHATIC: No easy bruising or bleeding. IMMUNOLOGIC: No issues with infection. PSYCHIATRIC: No anxiety of depression. ENDOCRINE: No heat or cold intolerance. The remainder of the 14-point review of systems is otherwise negative. PHYSICAL EXAMINATION VITAL SIGNS: Blood pressure 103/62, pulse 70, respiratory rate 16, temperature 96.8 Fahrenheit, oxygen saturation 96% on room air. Weight 93.3 kg and stable. Pain 0/10, fatigue 0/10. GENERAL: Stable condition, resting comfortably in the chair. HEENT: Normocephalic, atraumatic. CV: Deferred. She does have a [employer]. Zachary's valve SKIN: Rash is resolved. PSYCHIATRIC: Normal mood and affect. MUSCULOSKELETAL: Improved weakness. ECOG performance status of 1, much improved. The remainder of physical exam is deferred today to amount of time spent in counseling and coordination of care. IMPRESSION AND PLAN Mrs. Martinez is a very pleasant 57-year-old female with the followin. Localized adenocarcinoma of the rectum. Suspect T2-T3 disease N0 M0. She finished neoadjuvant chemotherapy and radiation therapy. Typically, I would recommend surgery. However, she met with Dr. Zhang, our expect surgeon, and they decided together to pursue serial biopsies. I do not have a cure rate for her disease without surgery. Her expresses understanding that there is a chance the disease will come back and they may need to consider surgery. Overall, she is doing well and recovering and we will see her every three months approximately after each serial biopsy. 2. 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 We previously discussed the natural history and potential for recovery. I answered all of their questions today. I will see her back in approximately January. Billing: Return visit level 5. Total time 30 minutes, counseling time 20. MTDD
[~2017-12-06 09:54] MED LIST changes: +ALTEPLASE RECOMB 2 MG VIAL IVP PRN; +DEXTROSE 5%(*) 100 ML BAG 100 ML IVPB PRN; -FERR140T2 PO; +FERR140T3 PO; +LIDOCAINE/SOD BICARB 8.4% SYR ID PRN; +NS(*) 0.9% 100 ML BAG 100 ML IVPB PRN; +NS(*) 0.9% 500 ML BAG 500 ML IV PRN; +WATER FOR INJ,STERILE 20 ML IVP PRN
[2017-12-06] MEDS: HEPARIN FLSH (PORT) 500 UN/5ML IVP PRN (10:20)
[2017-12-06 11:26] VITALS: BP 123/82
[2017-12-25] MEDS ORDERED: BIOT1TAB12 PO (09:19)
[2018-01-03] MEDS ORDERED: OMEP40CA48 PO (08:58)
[2018-01-03] MEDS ORDERED: WARF5TAB23 PO ×2 (09:13)
== END 2018-01-07 ==
LOC: SPU 09:54
PROVIDERS: ATTEND Internal Medicine
DX: C20 Malignant neoplasm of rectum (principal); G62.0 Drug-induced polyneuropathy; I50.9 Heart failure, unspecified; Q87.40 Marfan syndrome, unspecified; G47.30 Sleep apnea, unspecified; Z95.2 Presence of prosthetic heart valve; Z86.73 Personal history of transient ischemic attack (TIA), and cerebral infarction without residual deficits
CPT/HCPCS: 96523; 99212; J1642

== ENCOUNTER 2017-12-24 11:22 | Outpatient (RCR) | payer BC, OTHER ==
[~2017-12-24 11:22] MED LIST changes: -ALTEPLASE RECOMB 2 MG VIAL IVP PRN; -DEXTROSE 5%(*) 100 ML BAG 100 ML IVPB PRN; -LIDOCAINE/SOD BICARB 8.4% SYR ID PRN; -NS(*) 0.9% 100 ML BAG 100 ML IVPB PRN; -NS(*) 0.9% 500 ML BAG 500 ML IV PRN; -WATER FOR INJ,STERILE 20 ML IVP PRN
[2017-12-25] MEDS ORDERED: BIOT1TAB12 PO (09:19)
[2018-01-03] MEDS ORDERED: OMEP40CA48 PO (08:58)
[2018-01-03] MEDS ORDERED: WARF5TAB23 PO ×2 (09:13)
[2018-01-20] MEDS ORDERED: OMEP40CA48 PO (16:08)
== END 2018-02-10 14:24 | disposition home or self-care (01) ==
LOC: RAON 11:22
PROVIDERS: ATTEND Radiology Radiation Oncology
DX: C21.1 Malignant neoplasm of anal canal (principal); I50.9 Heart failure, unspecified; E66.9 Obesity, unspecified; G47.33 Obstructive sleep apnea (adult) (pediatric); Z90.710 Acquired absence of both cervix and uterus; Z92.3 Personal history of irradiation; Z79.899 Other long term (current) drug therapy
CPT/HCPCS: 99212

== ENCOUNTER 2018-01-09 00:16 | Day surgery (SDC) | payer BC ==
[~2018-01-09] VITALS: Ht 172.7 cm; Wt 93.4 kg
[~2018-01-09 00:16] MED LIST changes: +BIOT1TAB12 PO
[2018-01-09] MEDS ORDERED: METOCLOPRAMIDE 10 MG/2 ML SDV ONE (11:44)
[2018-01-09] MEDS ORDERED: LIDOCAINE/SOD BICARB 8.4% SYR ID ONE (12:45)
[2018-01-09] MEDS ORDERED: FAMOTIDINE 20 MG TAB PO ONE (12:45)
[2018-01-09] MEDS ORDERED: NORMOSOL R SOLN(*) 1000 ML BAG 1,000 ML IV PRN (12:45)
[2018-01-09] MEDS ORDERED: MIDAZOLAM 2 MG/2 ML VIAL IVP PRN (12:45)
[2018-01-09 13:06] VITALS: BP 122/69
[2018-01-09 13:11] LABS: INR 1.04
--- NOTE | 2018-01-09 14:18 | EKG ---
FACILITY: [facility] - [place] PATIENT NAME: PRICILLA CHRISTIAN : [id number] MR: [id number] V: [id number] EXAM DATE: ORDERING PHYSICIAN: NASEEM MCNAMARA TECHNOLOGIST: Test Reason : Blood Pressure : / mmHG Vent. Rate : 081 BPM Atrial Rate : 081 BPM P-R Int : 194 ms QRS Dur : 152 ms QT Int : 476 ms P-R-T Axes : 039 023 024 degrees QTc Int : 552 ms Normal sinus rhythm Right bundle branch block Abnormal ECG When compared with ECG of 28-JAN-2017 12:31, No significant change was found Confirmed by Medhat Ray ([id number]) on 01/09/2018 9:41:13 PM Referred By: Confirmed By:Medhat García
[2018-01-09] MEDS ORDERED: PROPOFOL EMUL(*) 10MG/ML 20 ML 20 ML ONE (14:19)
[2018-01-09] MEDS ORDERED: ONDANSETRON 4 MG/2 ML VIAL ONE (14:19)
[2018-01-09] MEDS ORDERED: DEXAMETHASONE SOD 4 MG/ML VIAL ONE (14:19)
[2018-01-09] MEDS ORDERED: LIDOCAINE MPF 1% 5 ML VIAL ONE (14:19)
[2018-01-09] MEDS ORDERED: fentaNYL CITR 100 MCG/2 ML AMP ONE (14:20)
[2018-01-09] MEDS ORDERED: ROPIVACAINE 0.5% 20 ML VIAL ONE (15:51)
--- NOTE | 2018-01-09 16:46 | Short(Outpt) Discharge Summary ---
Discharge Summary Reason for Hosp/Final Diag: (1) Adenocarcinoma of anal canal Status: Chronic Hospital Course & Plan: Anal EUA completed without problems. 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-BC, ONC 06/19/17 Reported Medications Warfarin Sodium (WARFARIN SODIUM) 5 Mg Tablet, 7.5 MG PO QWEEK, TAB 01/03/18 Warfarin Sodium (WARFARIN SODIUM) 5 Mg Tablet, 5 MG PO QDAYX6, TAB 01/03/18 Omeprazole (OMEPRAZOLE) 40 Mg Capsule.dr, 40 MG PO QDAY, CAP 01/03/18 Biotin (BIOTIN) 1 Mg Tablet, 1 MG PO DAILY 12/25/17 Pyridoxine Hcl (VITAMIN B-6) 100 Mg Tablet, 100 MG PO DAILY 11/20/17 Pravastatin Sodium (PRAVACHOL) 20 Mg Tablet, 20 MG PO QDAY, TAB 11/20/17 [Areds] No Conflict Check, 1 TAB PO BID 11/20/17 Cholecalciferol (Vitamin D3) (VITAMIN D) 5,000 Unit Tablet, 5000 UNIT PO DAILY 11/20/17 Acetaminophen (TYLENOL) 325 Mg Tablet, 325 MG PO PRN, TAB 03/19/17 Losartan Potassium (Losartan Potassium) 25 Mg Tablet, 25 MG PO DAILY 07/28/12 Multivitamins (Multivitamin) 1 Tab Tablet, 1 TAB PO DAILY 07/28/12 Docosahexanoic Acid/Epa (Fish Oil 1,000 Mg Capsule) 1 Cap Capsule, 1 CAP PO DAILY 07/28/12 Spironolactone (Spironolactone) 50 Mg Tablet, 50 MG PO DAILY 07/28/12 Metoprolol Tartrate (Metoprolol Tartrate) 100 Mg Tablet, 50 MG PO DAILY 07/28/12 Discontinued Reported Medications Warfarin Sodium (Coumadin) 10 Mg Tablet, 7.5 MG PO 5XWEEK It is very important that you take your coumadin exactly as prescribed, have blood work to monitor your PT/INR values, and follow up with your health care provider as prescribed. Diet and medication can affect the PT/INR level. Keep your diet pretty much the same day to day. Many foods contain Vitamin K which helps blood to clot and can affect the way your coumadin works. You don't need to avoid foods that have Vitamin K, but you do need to eat about the same amount of them every day. Be sure to tell your provider before changing your diet for any reason (weight loss, illness, etc.) Do not start or discontinue any medications, prescribed or over the counter, except on the advise of your provider or pharmacist. Coumadin (Warfarin) increases the risk of bleeding. 07/28/12 Diet: Regular Activity: As Tolerated Special Instructions: Your examination was completed without problems and there's no evidence of cancer recurrence. Please follow up with Dr. Zhang in 3 months for another exam and then I'll see you in 6 months ([address] Zhang' exam) for another exam so we can continue to closely monitor you for recurrence of your anal cancer. Your mentioned that you are having issues with diarrhea. I recommend that you take a powder form of fiber, such as metamucil or citrucel, but only mix it in 4 ounces of water and drink this daily. This may help to produce more solid or semi-solid stools. If you're interested in discussing this further with me so I can try and help improve your bowel movements, call my nurse, Kasandra, at [phone] to set up an appointment to see me so we can work on this issue (if you're interested). NASEEM POLANCO MD Jan 09, 2018 16:46
[2018-01-09] MEDS ORDERED: HEPARIN FLSH (PORT) 500 UN/5ML IVP ONE (17:00)
[2018-01-09 17:02] VITALS: BP 108/68
[2018-01-09 17:15] VITALS: BP 106/63
[2018-01-09 17:30] VITALS: BP 101/53
[2018-01-09 17:34] VITALS: BP 100/59
[2018-01-09 17:35] VITALS: BP 109/62
--- NOTE | 2018-01-14 09:43 | Post Operative Progress Note ---
Post Operative Progress Note Date: Jan 14, 2018 Time: 09:41 Surgeon: Ange Dictation number: [id number] Anesthesia: LMA by Dr. Mckeon Pre-Op Diagnosis: H/O anal adenocarcinoma Post-Op Diagnosis: CEDRIC Findings: Normal exam Procedure(s): Anal exam under anesthesia Specimen Removed:(May be N/A): None Complications: None Fluids: See anesthesia record Estimated Blood Loss: None Date OP Note Dictated: Jan 14, 2018 Time OP Note Dictated: 09:43 NASEEM POLANCO MD Jan 14, 2018 09:41
--- NOTE | 2018-01-14 11:36 | OPERATIVE REPORT 1 ---
EVENT DATE: January 09, 2018 SURGEON: Kvng Cassidy M.D. ANESTHESIOLOGIST: Joe Mckeon M.D. ANESTHESIA: LMA. PREOPERATIVE DIAGNOSIS History of anal adenocarcinoma. POSTOPERATIVE DIAGNOSIS History of anal adenocarcinoma. PROCEDURE PERFORMED Anal exam under anesthesia. COMPLICATIONS None. CONDITION Stable. FINDINGS This patient had a normal postoperative exam with only scarring from her previous excision. SPECIMENS None. INDICATIONS This is a 57-year-old female who initially presented to me with a large perianal mass, which I removed, and this revealed an adenocarcinoma so she was referred to oncology as well as surgical oncology and she has been placed on a rectal cancer trial for patients who seem to have had a complete response from adjuvant chemo and radiation therapy, also she also had the surgical resection. Part of this surveillance protocol is to undergo anal exams to look for recurrence and biopsy any suspicious lesions for the next several years after treatment. DESCRIPTION OF PROCEDURE The patient was brought to the operating room and placed supine on the operating table. LMA anesthesia was administered and she was placed in candy cane stirrups. A digital rectal exam was completed, which was grossly unremarkable. She did have a small amount of prolapsed rectal mucosa but this has been a long- term problem for her. Dr. Zhang, the surgical oncologist that had seen her down at [facility] just happened coincidentally up here motor vehicle emissions inspector and was in this procedure with me and visualized the patient's anus with me. She had done the previous exam three months ago and so she could directly compare any changes. The Hill-Tee was inserted into her anus and looked circumferentially, especially at the resection area, and saw no suspicious lesions. The tissue was all normal to palpation as well. The sphincter muscles seemed to be intact. We performed no biopsies or other procedures as everything appeared normal. We removed the Hill-Tee, took her out of candy cane stirrups and she was awakened and LMA removed and transported to the recovery room in stable condition, having tolerated the procedure without any apparent problems. She will have another exam in three months as part of the surveillance protocol. [facility] HEALTH SYSTEMKandace
== END 2018-01-09 17:02 | disposition home or self-care (01) ==
LOC: OR 00:16
PROVIDERS: ATTEND Surgery
DX: Z85.048 Personal history of other malignant neoplasm of rectum, rectosigmoid junction, and anus (principal); I10 Essential (primary) hypertension; Z79.01 Long term (current) use of anticoagulants
CPT/HCPCS: 46600; 85610; 93005; J1100; J2001; J2405; J2704; J2765; J2795; J3010

== ENCOUNTER 2018-01-22 09:00 | Outpatient (RCR) | payer BC ==
--- NOTE | 2017-12-02 11:47 | PT PLAN OF CARE ---
Physician: CALEB Mon Patient is being seen: 3x/Week Therapist: Abiola Pinto, PT, DPT, CLT Medical Diagnosis: Anal Adenocarcinoma Treatment Diagnosis: Anal Adenocarcinoma, Neck stiffness, Patellofemoral syndrome Date of Onset: 04/10/17 Date of Initial Evaluation: 04/10/17 Date patient was last seen: 12/02/17 Number of treatments: 20 Number of cancellations/No shows: 1 INTERVENTIONS: Manual Therapy/STM/MET Strengthening/condition Ice/Heat Range of Motion Spinal Stabilization Ultrasound Stretching Iontophoresis Neuromuscular Re-ed Closed Chain Program Electrical Stim Posture/Body mechanics Gait Trg/Balance Trg Biofeedback Home Exercise Program Mech./Manual Traction Therapeutic Activities Pelvic Floor GOALS: In 4 weeks pt will decrease R neck and shoulder pain to 0/10 with improved cervical mobility to WFL for increased function with ADL's. MET In 3 months pt will maintain FACT-G score of >79/108 indicating maintenance of functional well-being. MET In 3 months pt will decrease L knee and hip pain to < 2/10 with walking and ADL' s for increased functional mobility. MET In 3 months pt will maintain ECOG performance status of grade 2 or less for improved outcomes with ongoing oncological intervention and maintenance of function. MET In 6 months pt will maintain FACT-G score of >79/108 indicating maintenance of functional well-being. MET In 6 months pt will maintain ECOG performance status of grade 2 or less for improved outcomes with ongoing oncological intervention and maintenance of function. PATIENT'S GOAL: Maintain function, decrease neck pain and hip pain. Status of Patient's Goals: In Progress Patient Compliance: Good Prognosis: Good Reasons for continuing therapy: Radha shows good progress with endurance with exercise and with ADL's. Pt is able to do more throughout the day without taking breaks. Pt hip extension/abduction and knee extension show good maintenance of gains. However, hip flexion and ankle PF for efficiency of gait and increased foot clearance remain weak. Further PT is indicated to return pt to PLOF and increase safety and independence with ADL's and recreational activities. Posture: Rounded shoulders posture with increased thoracic kyphosis and forward head. ROM: LE and UE ROM WFL. Cervical ROM full with stretch end range. Strength: LE MMT: Hip: Flexion: L 4/5, R 4/5, Ext: B 5/5, Abd: B 4+/5, Add: B 5/ 5. Knee: Flexion: L 4+/5, R 4+/5, Ext: B 4/5. Ankle: PF: B 4+/5, DF: B 5/5 Sensation: Pt reports neuropathy in L foot>R Other Objective Findings: ECOG Performance Status: Grade 2 FACT-G (Initial EVAL 04/10/17): PWB: 25, SWB: , EWB: , FWB: 03/12, Total: 79/108 FACT-G 05/08/17: PWB: 16, SWB: 25.09/09, EWB: 17.09/05, FWB: , Total: 78/ 108 FACT-G 08/22/17: PWB: 23.09/09, SWB: , EWB: , FWB: , Total: 94.5/ 108 FACT-G 09/17/17: PWB: , SWB: , EWB: , FWB: , Total: 95/108 FACT-G 11/04/17: PWB: 25.5/, SWB: , EWB: 23.09/05, FWB: , Total: 99/ 108 FACT-G 12/02/17: PWB: , SWB: , EWB: , FWB: , Total: 94/108 If you have any questions or concerns, please feel free to contact me at [phone]. Thank you, Abiola Pinto, PT, DPT, CLT MTDD
--- NOTE | 2018-01-22 11:56 | PT PLAN OF CARE ---
Physician: CALEB Mon Patient is being seen: 2-3x/Week Therapist: Abiola Pinto, PT, DPT, CLT Medical Diagnosis: Anal Adenocarcinoma Treatment Diagnosis: Anal Adenocarcinoma, Neck stiffness, Patellofemoral syndrome Date of Onset: 04/10/17 Date of Initial Evaluation: 04/10/17 Date patient was last seen: 01/22/18 Number of treatments: 29 Number of cancellations/No shows: 2 INTERVENTIONS: Manual Therapy/STM/MET Strengthening/condition Ice/Heat Range of Motion Spinal Stabilization Ultrasound Stretching Iontophoresis Neuromuscular Re-ed Closed Chain Program Electrical Stim Posture/Body mechanics Gait Trg/Balance Trg Biofeedback Home Exercise Program Mech./Manual Traction Therapeutic Activities Pelvic Floor GOALS: In 4 weeks pt will decrease R neck and shoulder pain to 0/10 with improved cervical mobility to WFL for increased function with ADL's. MET In 3 months pt will maintain FACT-G score of >79/108 indicating maintenance of functional well-being. MET In 3 months pt will decrease L knee and hip pain to < 2/10 with walking and ADL's for increased functional mobility. MET In 3 months pt will maintain ECOG performance status of grade 2 or less for improved outcomes with ongoing oncological intervention and maintenance of function. MET In 6 months pt will maintain FACT-G score of >79/108 indicating maintenance of functional well-being. MET In 6 months pt will maintain ECOG performance status of grade 2 or less for improved outcomes with ongoing oncological intervention and maintenance of function. MET PATIENT'S GOAL: Maintain function, decrease neck pain and hip pain. Status of Patient's Goals: 09/18 MET Patient Compliance: Good Prognosis: Good Reasons for discharge from therapy: Radha is to discharge from physical therapy at this time secondary to completion of all of her functional goals. Pt reports significant increase in endurance and functional mobility with no longer needing to take nap breaks. Pt shows full continence of the bladder and bowel without any urgency or dysfunction except minor bowel irritation secondary to frequent biopsies. Upon discharge pt is to continue with home exercise program to maintain functional gains. Additionally pt is to maintain activity level with ADL's. Pt is to seek further PT if any further dysfunction or weakness arises. Posture: Rounded shoulders posture with increased thoracic kyphosis and forward head. ROM: LE and UE ROM WFL. Cervical ROM full with stretch end range. Strength: LE MMT: Hip: Flexion: L 4/5, R 4/5, Ext: L 4+/5, R 5/5, Abd: B 4/5, Add: B 4+/5. Knee: Flexion: L 4/5, R 4+/5, Ext: B 4+/5. Ankle: PF: L 4+/5, R 5/5, DF: B 5/5 Other Objective Findings: ECOG Performance Status: Grade 2 FACT-G (Initial EVAL 04/10/17): PWB: 25, SWB: , EWB: , FWB: 03/12, Total: 79/108 FACT-G 05/08/17: PWB: 16, SWB: 25.09/09, EWB: 17.09/05, FWB: , Total: 78/108 FACT-G 08/22/17: PWB: 23.09/09, SWB: , EWB: , FWB: , Total: 94.5/108 FACT-G 09/17/17: PWB: , SWB: , EWB: , FWB: , Total: 95/108 FACT-G 11/04/17: PWB: 25.5/, SWB: , EWB: 23.09/05, FWB: , Total: 99/108 FACT-G 12/02/17: PWB: , SWB: , EWB: , FWB: , Total: 94/108 If you have any questions or concerns, please feel free to contact me at [phone]. Thank you, Abiola Pinto, PT, DPT, CLT MTDD
[2018-02-19] MEDS ORDERED: DIPH0.5D12 IM (09:05)
[2018-02-19] MEDS ORDERED: PRAV20TA65 PO (09:07)
== END 2018-03-02 ==
LOC: PT 09:00
PROVIDERS: ATTEND Internal Medicine Medical Oncology
DX: C21.1 Malignant neoplasm of anal canal (principal); M22.2X2 Patellofemoral disorders, left knee

== ENCOUNTER → 2018-02-13 | Outpatient (CLI) | payer BC, OTHER ==
--- NOTE | 2018-02-14 10:09 | RADIOLOGY IMAGING REPORT ---
FACILITY: [facility] - [place] PATIENT NAME: PRICILLA CHRISTIAN : [id number] MR: [id number] V: [id number] EXAM DATE: ORDERING PHYSICIAN: BECKY ESPARZA TECHNOLOGIST: Nahomi Langston PROCEDURE:BILATERAL DIGITAL SCREENING MAMMOGRAM WITH CAD ASSISTED INTERPRETATION & 3D TOMOSYNTHESIS COMPARISON:Prior mammograms 01/25/17, 07/22/12. INDICATIONS:screening FINDINGS: Breast parenchyma is heterogeneously dense. There are no mammographic findings concerning for malignancy. No significant interval change. DIAGNOSTIC CATEGORY 1--NEGATIVE. RECOMMENDATIONS: ROUTINE MAMMOGRAM AND CLINICAL EVALUATION IN 1 YR. IMPRESSION: BIRADS 1: Negative. Dictated by: Floyd Spann on 02/14/2018 at 9:52 Transcribed by: TONI on 02/14/2018 at 9:56 Approved by: Floyd Spann on 02/14/2018 at 10:07 [facility]
== END ==
LOC: MAMO 01:47
PROVIDERS: ATTEND Emergency Medicine
DX: Z12.31 Encounter for screening mammogram for malignant neoplasm of breast (principal)
CPT/HCPCS: 77063; 77067

== ENCOUNTER 2018-03-11 09:40 | Outpatient (RCR) | payer BC ==
[2018-02-03] MEDS: HEPARIN FLSH (PORT) 500 UN/5ML IVP PRN (14:00)
[2018-02-03 15:00] VITALS: BP 108/76
--- NOTE | 2018-02-04 15:43 | SCHUSTER ONCOLOGY NOTE ---
DATE OF EVENT: February 03, 2018 CHIEF COMPLAINT/REASON FOR VISIT Ms Martinez is a pleasant, 57-year-old female with localized adenocarcinoma of the rectum, having completed eight cycles of neoadjuvant FOLFOX therapy, followed by radiation. HISTORY OF PRESENT ILLNESS and Mrs. Martinez return. This is adenocarcinoma of the rectum and not an anal squamous cell carcinoma. Based on the PET scan as well as the MRI, it is a low rectal cancer as opposed to the squamous cell carcinoma of the anus. Normally in the past, we would consider surgery at this point; however, we have good literature to support exams and serial biopsies every three months. The last was the very end of December and looked excellent. This was performed by Dr. Cassidy and Dr. Zhang. They are going to repeat this near the end of the year, which is excellent. Overall, she is doing quite well. Unfortunately, she suffered a fall and is on Coumadin for her heart valve. She had considerable bleeding on the forearm, but is healing from this. No other new issues. The neuropathy seems to be improving. The hands have nearly resolved, and the feet are slowly improving which is encouraging. ONCOLOGY HISTORY The patient's first symptoms started in 2016 for what she thought was a bleeding hemorrhoid. EUS was done and did not find any considerable findings after two cycles of therapy. This was very encouraging for response. She had considerable neuropathy and required a 15% dose reduction of oxaliplatin and subsequent discontinuation. She has numerous comorbidities including congestive heart failure, Marfan syndrome, history of valve replacement, sleep apnea, and history of stroke in 2001. She also developed liver toxicity with chemo, but this has improved. Due to the significant side effects and liver toxicity, we did not add Xeloda to her radiation therapy, as well as a small insurance delay when we decided that she had recovered enough to consider the addition of the Xeloda; thus, she did not get any. PAST MEDICAL/SURGICAL HISTORY 1. Chronic anemia. 2. Cataract surgery. 3. CHF. 4. Marfan syndrome. 5. History of cholecystectomy in 2001. 6. History of open heart surgery in 2001. 7. History of stroke in 2001. 8. Sleep apnea. 9. History of hemorrhoids. 10. History of incomplete bladder emptying, requiring a Melendez for quite some time. Believed to be a surgical complication as opposed to a cancer complication. 11. Localized adenocarcinoma of the rectum. SOCIAL HISTORY Patient is and has presented with her again. 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 FAMILY HISTORY The patient's mother may have had cancer, but it is unclear. REVIEW OF SYSTEMS CONSTITUTIONAL: No fevers, chills, weight change. HEENT: No headache, vision changes. CARDIOVASCULAR: No chest pain, dyspnea on exertion. She has controlled CHF and known Marfan syndrome, as well as mechanical [place] Zachary valve. RESPIRATORY: No shortness of breath or cough. GASTROINTESTINAL: No nausea, vomiting. She does have a history of GERD. GENITOURINARY: No dysuria or hematuria. She did have bladder symptoms initially with chemotherapy, but these resolved. LYMPHATIC: Negative for concerning lumps or bumps. PSYCHIATRIC: No anxiety of depression. The remainder of 14-point review of systems otherwise negative. PHYSICAL EXAMINATION VITAL SIGNS: Blood pressure 108/73, pulse 86, respiratory rate 16, temperature 97.4 Fahrenheit, oxygen saturation 97% on room air. Weight 95.4 kg. Pain zero/10, fatigue zero/10. GENERAL: Stable condition, resting comfortably in the chair. HEENT: Normocephalic, atraumatic. Marfanoid appearance somewhat. CARDIOVASCULAR: Deferred today. She does have a [place]. Zachary valve with audible click. SKIN: No rash. She has a healing wound on her forehead and cheek on the right side. PSYCHIATRIC: Normal mood and affect. ABDOMEN: Soft, nontender. No masses or organomegaly. MUSCULOSKELETAL: ECOG performance status of 1. She is doing much better than when she was on chemotherapy. Remainder of physical exam otherwise unremarkable. IMPRESSION/REPORT/PLAN Mrs. Martinez is a very pleasant, 57-year-old female with the followin. Localized adenocarcinoma of the rectum. Suspect T2-T3 disease, N0 M0. She finished neoadjuvant chemotherapy and radiation therapy. We are pursuing close active surveillance with visualization by Surgery and biopsies every three months. Her last biopsy in December 2017 was excellent. No other new issues today. 2. 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 This is recovering. I am very encouraged by this. I hope it continues to recover, and it should. I answered all of her many questions today. We will see her back in six months. BILLING Return visit level 4. Total time 30 minutes, counseling time 20. MTDD
[~2018-03-11 09:40] MED LIST changes: +ALTEPLASE RECOMB 2 MG VIAL IVP PRN; +DEXTROSE 5%(*) 100 ML BAG 100 ML IVPB PRN; +DIPH0.5D12 IM; +INFLUENZA VIRUS VAC 0.5ML SYR IM ONLY ONE; +LIDOCAINE/SOD BICARB 8.4% SYR ID PRN; +NS(*) 0.9% 100 ML BAG 100 ML IVPB PRN; +NS(*) 0.9% 500 ML BAG 500 ML IV PRN; +WATER FOR INJ,STERILE 20 ML IVP PRN
[2018-03-11 09:47] VITALS: BP 111/61
[2018-03-11] MEDS: HEPARIN FLSH (PORT) 500 UN/5ML IVP PRN (09:47)
[2018-03-19] MEDS ORDERED: OMEP40CA48 PO (15:33)
== END 2018-03-17 08:56 | disposition home or self-care (01) ==
LOC: SPU 09:40
PROVIDERS: ATTEND Internal Medicine
DX: C20 Malignant neoplasm of rectum (principal); G62.0 Drug-induced polyneuropathy; I50.9 Heart failure, unspecified; Q87.40 Marfan syndrome, unspecified; G47.30 Sleep apnea, unspecified; Z95.2 Presence of prosthetic heart valve; Z86.73 Personal history of transient ischemic attack (TIA), and cerebral infarction without residual deficits
CPT/HCPCS: 90674; 96523; 99212; J1642

== ENCOUNTER → 2018-05-08 | Outpatient (CLI) | payer BC ==
[~2018-05-08] MED LIST changes: -ALTEPLASE RECOMB 2 MG VIAL IVP PRN; -DEXTROSE 5%(*) 100 ML BAG 100 ML IVPB PRN; -INFLUENZA VIRUS VAC 0.5ML SYR IM ONLY ONE; -LIDOCAINE/SOD BICARB 8.4% SYR ID PRN; -NS(*) 0.9% 100 ML BAG 100 ML IVPB PRN; -NS(*) 0.9% 500 ML BAG 500 ML IV PRN; -WATER FOR INJ,STERILE 20 ML IVP PRN
== END ==
LOC: RESP 19:57
PROVIDERS: ATTEND Emergency Medicine
DX: G47.33 Obstructive sleep apnea (adult) (pediatric) (principal); G47.61 Periodic limb movement disorder

== ENCOUNTER 2018-06-13 09:38 | Outpatient (RCR) | payer BC ==
[2018-05-09 14:26] VITALS: BP 99/64
[2018-05-09] MEDS: HEPARIN FLSH (PORT) 500 UN/5ML IVP PRN (14:30)
[~2018-06-13 09:38] MED LIST changes: +ALTEPLASE RECOMB 2 MG VIAL IVP PRN; +DEXTROSE 5%(*) 100 ML BAG 100 ML IVPB PRN; -DIPH0.5D12 IM; +DIPH0.5S2 IM; +LIDOCAINE/SOD BICARB 8.4% SYR ID PRN; +NS(*) 0.9% 100 ML BAG 100 ML IVPB PRN; +NS(*) 0.9% 500 ML BAG 500 ML IV PRN; +WATER FOR INJ,STERILE 20 ML IVP PRN
[2018-06-13] MEDS: HEPARIN FLSH (PORT) 500 UN/5ML IVP PRN (09:54)
[2018-06-13 09:56] VITALS: BP 108/75
[2018-06-17] MEDS ORDERED: PRAV40TA78 PO (14:07)
== END 2018-08-07 ==
LOC: SPU 09:38
PROVIDERS: ATTEND Internal Medicine
DX: C20 Malignant neoplasm of rectum (principal); G62.0 Drug-induced polyneuropathy; I50.9 Heart failure, unspecified; Q87.40 Marfan syndrome, unspecified; G47.30 Sleep apnea, unspecified; Z95.2 Presence of prosthetic heart valve; Z86.73 Personal history of transient ischemic attack (TIA), and cerebral infarction without residual deficits
CPT/HCPCS: 96523; J1642

== ENCOUNTER → 2018-06-17 | Outpatient (CLI) | payer BC ==
[~2018-06-17] MED LIST changes: -ALTEPLASE RECOMB 2 MG VIAL IVP PRN; -DEXTROSE 5%(*) 100 ML BAG 100 ML IVPB PRN; +DIPH0.5D12 IM; -DIPH0.5S2 IM; -LIDOCAINE/SOD BICARB 8.4% SYR ID PRN; -NS(*) 0.9% 100 ML BAG 100 ML IVPB PRN; -NS(*) 0.9% 500 ML BAG 500 ML IV PRN; +PRAV40TA78 PO; -WATER FOR INJ,STERILE 20 ML IVP PRN
[2018-06-17 12:42] LABS: INR 2.25
== END ==
LOC: LAB 12:14
PROVIDERS: ATTEND Internal Medicine Cardiovascular Disease
DX: I50.22 Chronic systolic (congestive) heart failure (principal)
CPT/HCPCS: 36415; 82040; 82247; 82310; 82374; 82435; 82565; 82947; 84075; 84132; 84155; 84295; 84450; 84460; 84520; 85610

== ENCOUNTER → 2018-06-17 | Outpatient (CLI) | payer BC | LOC: LAB 12:31 | PROVIDERS: ATTEND Emergency Medicine | DX: E78.5 Hyperlipidemia, unspecified (principal) | CPT/HCPCS: 82465; 83718; 84478 ==

== ENCOUNTER → 2018-07-29 | Outpatient (CLI) | payer BC ==
[~2018-07-29] MED LIST changes: -DIPH0.5D12 IM; +DIPH0.5S2 IM
[2018-07-29 12:10] LABS: INR 3.19
== END ==
LOC: LAB 11:14
PROVIDERS: ATTEND Internal Medicine Cardiovascular Disease
DX: I50.22 Chronic systolic (congestive) heart failure (principal)
CPT/HCPCS: 36415; 82040; 82247; 82310; 82374; 82435; 82565; 82947; 84075; 84132; 84155; 84295; 84450; 84460; 84520; 85610

== ENCOUNTER 2018-08-12 09:00 | Outpatient (RCR) | payer BC ==
[~2018-08-12 09:00] MED LIST changes: +ALTEPLASE RECOMB 2 MG VIAL IVP PRN; +DEXTROSE 5%(*) 100 ML BAG 100 ML IVPB PRN; +HEPARIN FLSH (PORT) 500 UN/5ML IVP PRN; +LIDOCAINE/SOD BICARB 8.4% SYR ID PRN; +NS(*) 0.9% 100 ML BAG 100 ML IVPB PRN; +NS(*) 0.9% 250 ML BAG 250 ML IVPB PRN; +WATER FOR INJ,STERILE 20 ML IVP PRN
[2018-08-12 09:07] VITALS: BP 108/74
[2018-10-07] MEDS ORDERED: AZIT-1 PO (13:26)
[2018-10-07] MEDS ORDERED: PRED20TA6 PO (13:26)
== END 2018-10-13 11:36 | disposition home or self-care (01) ==
LOC: SPU 09:00
PROVIDERS: ATTEND Internal Medicine
DX: C20 Malignant neoplasm of rectum (principal)
CPT/HCPCS: 96523; J1642

== ENCOUNTER → 2018-08-12 | Outpatient (CLI) | payer BC ==
[2018-08-12 13:08] LABS: INR 2.88
== END ==
LOC: LAB 12:45
PROVIDERS: ATTEND Nurse Practitioner Acute Care
DX: Z51.81 Encounter for therapeutic drug level monitoring (principal); Z79.01 Long term (current) use of anticoagulants
CPT/HCPCS: 36415; 85610

== ENCOUNTER → 2018-09-10 | Outpatient (CLI) | payer BC ==
[~2018-09-10] MED LIST changes: -ALTEPLASE RECOMB 2 MG VIAL IVP PRN; -DEXTROSE 5%(*) 100 ML BAG 100 ML IVPB PRN; -HEPARIN FLSH (PORT) 500 UN/5ML IVP PRN; -LIDOCAINE/SOD BICARB 8.4% SYR ID PRN; -NS(*) 0.9% 100 ML BAG 100 ML IVPB PRN; -NS(*) 0.9% 250 ML BAG 250 ML IVPB PRN; -WATER FOR INJ,STERILE 20 ML IVP PRN
[2018-09-10 14:37] LABS: INR 3.37
== END ==
LOC: LAB 14:07
PROVIDERS: ATTEND Nurse Practitioner Acute Care
DX: Z51.81 Encounter for therapeutic drug level monitoring (principal); Z79.01 Long term (current) use of anticoagulants
CPT/HCPCS: 36415; 85610

== ENCOUNTER → 2018-09-24 | Outpatient (CLI) | payer BC ==
[2018-09-24 13:29] LABS: INR 2.27
== END ==
LOC: LAB 13:02
PROVIDERS: ATTEND Nurse Practitioner Acute Care
DX: Z51.81 Encounter for therapeutic drug level monitoring (principal); Z79.01 Long term (current) use of anticoagulants
CPT/HCPCS: 36415; 85610

== ENCOUNTER 2018-10-02 00:18 | Day surgery (SDC) | payer BC ==
[~2018-10-02] VITALS: Ht 175.3 cm; Wt 97.1 kg
[2018-10-02] MEDS: LIDOCAINE/SOD BICARB 8.4% SYR ID ONE ×2 (06:18→06:45)
[2018-10-02] MEDS ORDERED: FAMOTIDINE 20 MG TAB PO ONE ×2 (06:35→07:00)
[2018-10-02 06:44] VITALS: BP 119/75
[2018-10-02] MEDS ORDERED: NORMOSOL R SOLN(*) 1000 ML BAG 1,000 ML IV PRN (06:45)
[2018-10-02 07:11] LABS: INR 1.02
[2018-10-02] MEDS ORDERED: ROPIVACAINE 0.5% 20 ML VIAL ONE (07:23)
[2018-10-02] MEDS ORDERED: fentaNYL CITR 100 MCG/2 ML AMP ONE (07:27)
[2018-10-02] MEDS ORDERED: LIDOCAINE 2% IV 100 MG/5ML SYR ONE (07:27)
[2018-10-02] MEDS ORDERED: PROPOFOL EMUL(*) 10MG/ML 20 ML 20 ML ONE (07:28)
[2018-10-02] MEDS ORDERED: DEXAMETHASONE SOD 4 MG/ML VIAL ONE (07:37)
[2018-10-02] MEDS ORDERED: ONDANSETRON 4 MG/2 ML VIAL ONE (07:38)
--- NOTE | 2018-10-02 08:57 | Short(Outpt) Discharge Summary ---
Discharge Summary Reason for Hosp/Final Diag: (1) Adenocarcinoma of anal canal Status: Chronic Hospital Course & Plan: Colonoscopy and anal EUA with bx completed without prob lems. Departure Discharge to: Home, Self Care Discharge Instructions Home Meds Active Scripts Pravastatin Sodium (PRAVASTATIN SODIUM) 40 Mg Tablet, 40 MG PO QDAY, #90 TAB 3 Refills Prov:BECKY ESPARZA MD 06/17/18 Diphenoxylate Hcl/Atropine (DIPHENOXYLATE-ATROPINE TABLET) 1 Each Tablet, 1 EACH PO DAILY PRN for DIARRHEA, #30 TAB 1 Refill Prov:BECKY ESPARZA MD 05/28/18 Gabapentin (GABAPENTIN) 300 Mg Capsule, 1 TAB PO BID, #180 CAPSULE 3 Refills Prov:BECKY ESPARZA MD 03/27/18 Omeprazole (OMEPRAZOLE) 40 Mg Capsule.dr, 40 MG PO QDAY, #90 CAP 3 Refills Prov:BECKY ESPARZA MD 03/19/18 Reported Medications Warfarin Sodium (WARFARIN SODIUM) 5 Mg Tablet, 7.5 MG PO QDAY, TAB 01/03/18 [Areds] No Conflict Check, 1 TAB PO BID 11/20/17 Cholecalciferol (Vitamin D3) (VITAMIN D) 5,000 Unit Tablet, 5000 UNIT PO DAILY 11/20/17 Acetaminophen (TYLENOL) 325 Mg Tablet, 325 MG PO PRN, TAB 03/19/17 Losartan Potassium (Losartan Potassium) 25 Mg Tablet, 25 MG PO DAILY 07/28/12 Multivitamins (Multivitamin) 1 Tab Tablet, 1 TAB PO DAILY 07/28/12 Docosahexanoic Acid/Epa (Fish Oil 1,000 Mg Capsule) 1 Cap Capsule, 1 CAP PO DAILY 07/28/12 Spironolactone (Spironolactone) 50 Mg Tablet, 50 MG PO DAILY 07/28/12 Metoprolol Tartrate (Metoprolol Tartrate) 100 Mg Tablet, 50 MG PO DAILY 07/28/12 Follow up Referrals: General Surgery - 10/20/18 @ Surgery, General with NASEEM POLANCO MD You have a follow up appointment scheduled with Dr. Polanco on 10/20/18, at 11:30am. Diet: Regular Activity: As Tolerated Special Instructions: You may restart your coumadin (warfarin) immediately. I place a piece of foam in your anal canal to minimize bleeding from the biopsy site. You can sit on the toilet and evacuate the piece of foam whenever you fell like it. This could also be done in the shower or bath tub to moisten the foam if this works better for you. NASEEM POLANCO MD Oct 02, 2018 08:57
--- NOTE | 2018-10-02 09:04 | Post Operative Progress Note ---
Post Operative Progress Note Date: Oct 02, 2018 Time: 08:56 Surgeon: Ange Dictation number: [id number] Anesthesia: LMA by Dr. Hemphill Pre-Op Diagnosis: H/O anal or distal rectal adenocarcinoma Post-Op Diagnosis: CEDRIC Findings: Normal colonoscopy, excellent prep, no polyps or cancers. Anal scar is well healed without evidence of recurrence. Procedure(s): Colonoscopy Anal EUA with biopsy of anal scar Specimen Removed:(May be N/A): Anal scar Complications: None Fluids: See anesthesia record Estimated Blood Loss: Minimal Date OP Note Dictated: Oct 02, 2018 Time OP Note Dictated: 08:57 NASEEM POLANCO MD Oct 02, 2018 09:04
[2018-10-02 09:47] VITALS: BP 98/59
[2018-10-02 10:14] VITALS: BP 98/60
[2018-10-02 10:16] VITALS: BP 94/54
--- NOTE | 2018-10-02 10:42 | OPERATIVE REPORT 1 ---
EVENT DATE: October 02, 2018 SURGEON: Kvng Cassidy MD ANESTHESIOLOGIST: Mitchel Hemphill MD ANESTHESIA: LMA PREOPERATIVE DIAGNOSIS History of anorectal adenocarcinoma. POSTOPERATIVE DIAGNOSIS History of anorectal adenocarcinoma. PROCEDURE PERFORMED 1. Colonoscopy. 2. Anal exam under anesthesia. 3. Biopsy of anal scar. COMPLICATIONS None. CONDITION Stable. ESTIMATED BLOOD LOSS Minimal. FINDINGS This patient's prep was excellent. Withdrawal time was 10 minutes. There were no polyps, cancers, or other abnormalities in the colon. I was able to make it all the way to the cecum with some problems due to some tortuous nature of her colon and poor insufflation in some areas of her colon as I advanced the scope. The anal exam was normal in the context of her previous excision of her adenocarcinoma. There was no evidence of a recurrence of the adenocarcinoma in the rectum or anus. INDICATIONS This is a 57-year-old female who presented a couple of years ago with a mass protruding from her anus and I excised this in surgery and this turned out to be an adenocarcinoma. It seemed to be arising from the anus, but could have come from the very distal rectum, just above the dentate line. She also received radiation chemotherapy and she has been under surveillance since then and as part of this, I have recommended a colonoscopy as well as an anal exam under anesthesia with biopsy of the scar in conjunction of her surgical oncologist, Dr. Zhang from [facility] who has also been surveilling her and between the two of us, we have been doing this every 3 months with the anal exam and the biopsy. The patient has no new GI complaints or change in bowel habits. DESCRIPTION OF PROCEDURE The patient was brought to the operating room and placed supine on the operating table. LMA anesthesia was administered and she was placed in candy-cane stirrups. Digital rectal exam was completed which was unremarkable. She had a single-focus of prolapsing rectal mucosa and well-healed surgical scar without any palpable mass. The colonoscope was tested to insure it was completely functional, lubricated and inserted into the rectum through her anus. I advanced the scope ultimately all the way to her cecum. I did have some difficulty getting around the hepatic flexure and into the cecum, but with some external abdominal pressure, I was able to do this. Once I got into the cecum, I withdrew the scope. I looked at all mucosal surfaces for any abnormalities. When the scope was in the rectum, I attempted to retroflex the scope to look at the distal rectum and the upper anus endoscopically, but her rectal capacity was not big enough to allow the scope to retroflex without causing undo trauma to the rectum. I desufflated the colon and then removed the colonoscope from her body. I then inserted a anal speculum and looked at all quadrants of her anal canal and distal rectum. I could clearly see the surgical scar which appears to be well-healed and had no evidence of any recurrence of the cancer. I then grabbed small pieces of the scar with DeBakey forceps and used a 15 blade scalpel and removed pretty significant amounts tissue from this to send to pathology, although this did not go deep into the muscle or anything like that. After this, I placed a piece of rolled up Gelfoam in the anal canal. I did also inject this area with 0.5% ropivacaine plain for appropriate postoperative anesthesia. She was then awakened, LMA removed. She was transported to the recovery room in stable condition having tolerated the procedure without any apparent problems. PAOLO
== END 2018-10-02 09:47 | disposition home or self-care (01) ==
LOC: OR 00:18
PROVIDERS: ATTEND Surgery
DX: Z85.048 Personal history of other malignant neoplasm of rectum, rectosigmoid junction, and anus (principal); I11.0 Hypertensive heart disease with heart failure; I50.9 Heart failure, unspecified
CPT/HCPCS: 00811; 45380; 85610; 88305; J1100; J2001; J2405; J2704; J2795; J3010

== ENCOUNTER → 2018-10-07 | Outpatient (CLI) | payer BC ==
[~2018-10-07] MED LIST changes: +AZIT-1 PO; +PRED20TA6 PO
[2018-10-07 11:57] LABS: INR 2.24
== END ==
LOC: LAB 11:37
PROVIDERS: ATTEND Nurse Practitioner Acute Care
DX: Z51.81 Encounter for therapeutic drug level monitoring (principal); Z79.01 Long term (current) use of anticoagulants
CPT/HCPCS: 36415; 85610

== ENCOUNTER → 2018-10-13 | Outpatient (CLI) | payer BC ==
[2018-10-13 12:25] LABS: INR 2.81
== END ==
LOC: LAB 11:08
PROVIDERS: ATTEND Nurse Practitioner Acute Care
DX: Z51.81 Encounter for therapeutic drug level monitoring (principal); Z79.01 Long term (current) use of anticoagulants
CPT/HCPCS: 36415; 85610

== ENCOUNTER → 2018-10-20 | Outpatient (CLI) | payer BC ==
[2018-10-20 12:50] LABS: PLATELET COUNT, AUTOMATED 270 K/uL (150-450)
== END ==
LOC: LAB 12:01
PROVIDERS: ATTEND Surgery
DX: C43.9 Malignant melanoma of skin, unspecified (principal); C21.1 Malignant neoplasm of anal canal
CPT/HCPCS: 36415; 82040; 82247; 82248; 82310; 82374; 82378; 82435; 82565; 82947; 84075; 84132; 84155; 84295; 84450; 84460; 84520; 85025

== ENCOUNTER → 2018-10-27 | Outpatient (CLI) | payer BC ==
[~2018-10-27] MED LIST changes: +IOPAMIDOL 76% 100 ML INFUS BTL 100 ML ONE
--- NOTE | 2018-10-27 13:48 | RADIOLOGY IMAGING REPORT ---
FACILITY: [facility] PATIENT NAME: Radha Martinez : 1960 MR: [id number] V: [id number] EXAM DATE: ORDERING PHYSICIAN: NASEEM POLANCO TECHNOLOGIST: Location: [facility] [place] Patient: Radha Martinez : 1960 Visit/Account:[id number] Date of Sevice: 10/27/2018 CT chest and abdomen with IV contrast HISTORY: Rectal cancer ADDITIONAL HISTORY: None. TECHNIQUE: CT chest and abdomen with intravenous contrast. Contiguous helical images was performed f rom the lung apices to the iliac crest. One of the following dose optimization techniques was utilized in the performance of this exam: Autom ated exposure control; adjustment of the mA and/or kV according to the patient's size; or use of an i terative reconstruction technique. Specific details can be referenced in the facility's radiology C T exam operational policy. CONTRAST: 75 cc of Isovue-370 COMPARISON: CT abdomen 05/23/2017 FINDINGS: CHEST: Heart/vessels: Postoperative changes noted from median sternotomy and aortic valve replacement. Hea rt is enlarged. There is some calcification of the coronary vessels. Right-sided chemotherapy monique ter has its tip in SVC Mediastinum: Negative. Lymph nodes: Negative. Lungs/pleura: No concerning pulmonary nodules or masses. Atelectasis at the right lung base is note d. Bones/soft tissues: Patient has a scoliosis. ABDOMEN: Hepatobiliary: Reidentified is a benign cyst segment 6 of liver measuring 6.1 x 4.1 cm. There may b e a tiny septation medially and superiorly. Tiny cyst in segment 3 of liver is noted. No concerning liver lesions. Gallbladder is absent. Spleen: Negative. Adrenals: Negative. Kidneys/Visualized : Negative. Pancreas: Negative. Visualized GI: Negative. Vessels/spaces/nodes: Atherosclerotic calcifications noted. Bones/soft tissues: Patient has a prominent scoliosis IMPRESSION: 1. No evidence for metastatic disease to the chest or abdomen. 2. Stable benign cyst segment 6 of liver Report Dictated By: Tadeo Trimble MD at 10/27/2018 1:22 PM Report E-Signed By: Tadeo Trimble MD at 10/27/2018 1:43 PM WSN:[email or web address]
--- NOTE | 2018-10-27 13:49 | RADIOLOGY IMAGING REPORT ---
FACILITY: [facility] PATIENT NAME: Radha Martinez : 1960 MR: [id number] V: [id number] EXAM DATE: ORDERING PHYSICIAN: NASEEM POLANCO TECHNOLOGIST: Location: [facility] Patient: Radha Martinez : 1960 Visit/Account:[id number] Date of Sevice: 10/27/2018 CT chest and abdomen with IV contrast HISTORY: Rectal cancer ADDITIONAL HISTORY: None. TECHNIQUE: CT chest and abdomen with intravenous contrast. Contiguous helical images was performed f rom the lung apices to the iliac crest. One of the following dose optimization techniques was utilized in the performance of this exam: Autom ated exposure control; adjustment of the mA and/or kV according to the patient's size; or use of an i terative reconstruction technique. Specific details can be referenced in the facility's radiology C T exam operational policy. CONTRAST: 75 cc of Isovue-370 COMPARISON: CT abdomen 05/23/2017 FINDINGS: CHEST: Heart/vessels: Postoperative changes noted from median sternotomy and aortic valve replacement. Hea rt is enlarged. There is some calcification of the coronary vessels. Right-sided chemotherapy monique ter has its tip in SVC Mediastinum: Negative. Lymph nodes: Negative. Lungs/pleura: No concerning pulmonary nodules or masses. Atelectasis at the right lung base is note d. Bones/soft tissues: Patient has a scoliosis. ABDOMEN: Hepatobiliary: Reidentified is a benign cyst segment 6 of liver measuring 6.1 x 4.1 cm. There may b e a tiny septation medially and superiorly. Tiny cyst in segment 3 of liver is noted. No concerning liver lesions. Gallbladder is absent. Spleen: Negative. Adrenals: Negative. Kidneys/Visualized : Negative. Pancreas: Negative. Visualized GI: Negative. Vessels/spaces/nodes: Atherosclerotic calcifications noted. Bones/soft tissues: Patient has a prominent scoliosis IMPRESSION: 1. No evidence for metastatic disease to the chest or abdomen. 2. Stable benign cyst segment 6 of liver Report Dictated By: Tadeo Trimble MD at 10/27/2018 1:22 PM Report E-Signed By: Tadeo Trimble MD at 10/27/2018 1:43 PM WSN:[email or web address]
== END ==
LOC: CT 01:00
PROVIDERS: ATTEND Surgery
DX: C20 Malignant neoplasm of rectum (principal)
CPT/HCPCS: 71260; 74160; Q9967

== ENCOUNTER 2018-11-23 18:38 | Inpatient (IN) | payer BC ==
[~2018-11-23] VITALS: Ht 172.7 cm; Wt 99.3 kg
[~2018-11-23 18:38] MED LIST changes: -IOPAMIDOL 76% 100 ML INFUS BTL 100 ML ONE
--- NOTE | 2018-11-23 18:42 | ER Report ---
History and Physical Time Seen By MD: 18:37 HPI/ROS CHIEF COMPLAINT: Fever, shortness of breath HISTORY OF PRESENT ILLNESS: Patient is a 57-year-old female who presents to the emergency department with complaint of fatigue weakness and fever at home along with shaking chills. Patient states she started feeling better on Saturday mostly just fatigue however today she was having temperature to 100 at home along with shaking chills. She also noticed at one of her prior biopsy sites that her leg is now red and warm. There is no open wound and no purulent discharge noted. Patient again feels fatigued and she also feels short of breath. She denies any chest pain or pressure. She denies headache or neck pain. She denies abdominal pain. She denies nausea vomiting or diarrhea. Past medical history significant for mechanical aortic valve and she is anticoagulated on Coumadin. She recently completed a course of radiation therapy for rectal cancer in September and had chemotherapy prior to that. They do feel that her cancer is in remission now she has had negative biopsies and is not scheduled for any more radiation or chemotherapy in the near future. REVIEW OF SYSTEMS: Constitutional: Fevers and chills Eyes: No discharge. ENT: No sore throat. Cardiovascular: No chest pain, no palpitations. Respiratory: No cough, no shortness of breath. Gastrointestinal: No abdominal pain, no vomiting. Genitourinary: No hematuria. Musculoskeletal: No back pain. Skin: Redness to left lower extremity Neurological: No headache. Allergies: Coded Allergies: No Known Drug Allergies (Unverified , 11/23/18) Home Meds Active Scripts Pravastatin Sodium (PRAVASTATIN SODIUM) 40 Mg Tablet, 40 MG PO QDAY, #90 TAB 3 Refills Prov:BECKY ESPARZA MD 06/17/18 Gabapentin (GABAPENTIN) 300 Mg Capsule, 1 TAB PO BID, #180 CAPSULE 3 Refills Prov:BECKY ESPARZA MD 03/27/18 Omeprazole (OMEPRAZOLE) 40 Mg Capsule.dr, 40 MG PO QDAY, #90 CAP 3 Refills Prov:BECKY ESPARZA MD 03/19/18 Reported Medications Warfarin Sodium (WARFARIN SODIUM) 5 Mg Tablet, 7.5 MG PO QDAY, TAB 01/03/18 Losartan Potassium (Losartan Potassium) 25 Mg Tablet, 25 MG PO DAILY 07/28/12 Multivitamins (Multivitamin) 1 Tab Tablet, 1 TAB PO DAILY 07/28/12 Docosahexanoic Acid/Epa (Fish Oil 1,000 Mg Capsule) 1 Cap Capsule, 1 CAP PO DAILY 07/28/12 Spironolactone (Spironolactone) 50 Mg Tablet, 50 MG PO DAILY 07/28/12 Metoprolol Tartrate (Metoprolol Tartrate) 100 Mg Tablet, 50 MG PO DAILY 07/28/12 Discontinued Reported Medications [Areds] No Conflict Check, 1 TAB PO BID 11/20/17 Cholecalciferol (Vitamin D3) (VITAMIN D) 5,000 Unit Tablet, 5000 UNIT PO DAILY 11/20/17 Acetaminophen (TYLENOL) 325 Mg Tablet, 325 MG PO PRN, TAB 03/19/17 Discontinued Scripts Prednisone (PREDNISONE) 20 Mg Tablet, 1 TAB PO BID for 5 Days, #10 TAB 0 Refills Prov:ARLIN GARG DNP [facility] 10/07/18 Azithromycin (ZITHROMAX) 250 Mg Tablet, 0 PO QDAY, #6 TAB 0 Refills TAKE 2 TABLETS ON DAY 1 AND 1 TABLET ON DAYS 2-5 Prov:ARLIN GARG DNP [facility]- 10/07/18 Diphenoxylate Hcl/Atropine (DIPHENOXYLATE-ATROPINE TABLET) 1 Each Tablet, 1 EACH PO DAILY PRN for DIARRHEA, #30 TAB 1 Refill Prov:BECKY ESPARZA MD 05/28/18 Past Medical/Surgical History Past medical history for stroke, congestive heart failure with an EF of 53%, sleep apnea, scoliosis, obesity, past surgical history for tonsillectomy, aortic valve replacement and aneurysm repair in 2001, cholecystectomy, tubal ligation history of rectal cancer resection in 2017 Hx Smoking: No Smoking Status: Never Smoker Hx Substance Use Disorder: No Hx Alcohol Use: No Constitutional Vital Sign - Last 24 Hours 11/23/18 11/23/18 11/23/18 11/23/18 18:43 19:00 19:30 20:00 Temp 98.0 Pulse 93 92 103 98 Resp 22 22 23 35 B/P (MAP) 89/71 98/65 (76) 94/68 (77) 107/63 (78) Pulse Ox 93 91 92 95 O2 Delivery Room Air 11/23/18 11/23/18 20:30 21:00 Pulse 100 103 Resp 21 29 B/P (MAP) 102/62 (75) 92/51 (65) Pulse Ox 96 Physical Exam General/Constitutional: Patient is awake, alert, increased work of breathing Head: Normocephalic and atraumatic. Eyes: Conjunctival clear, Pupils are equal and reactive to light. Extraocular muscles are intact and symmetrical. Sclera are clear and anicteric. Ears:External canals are clear. Tympanic membranes are clear with normal landmarks and light reflex. Nares: No rhinorrhea or bleeding. Turbinates are pink and moist. Oropharyngeal: Mucous membranes are moist. There is no pharyngeal erythema or exudate. There are no palatal petechiae. Uvula is midline and symmetrical. Neck: Supple, no adenopathy. Cardiovascular: Heart is regular rate and rhythm without audible murmurs, rubs or gallops. Pulmonary: Lungs are clear to auscultation bilaterally. There are no wheezes, rales, or rhonchi. Chest rise is symmetrical Abdomen: Soft, nontender, no guarding or peritoneal signs. Extremities: No gross deformities, No peripheral cyanosis. Able to move all 4 e xtremities. Neuro: Alert and oriented X3, Cranial nerves 2 thru 12 are intact and symmetrical. Patient has normal gait. Skin: Patient with what appears to be a cellulitis to the inguinal area and down part of the outer aspect of the left thigh. It is warm to touch and tender. Medical Decision Making Data Points Result Diagram: 11/23/18 1850 11/23/18 1850 Laboratory Hematology Test 11/23/18 18:50 White Blood Count 7.4 k/uL (4.5-11.0) Red Blood Count 3.72 M/uL (4.17-5.56) L Hemoglobin 11.4 g/dL (12.0-16.0) L Hematocrit 33.0 % (34.0-47.0) L Mean Corpuscular Volume 88.5 fL (80.0-96.0) Mean Corpuscular Hemoglobin 30.7 pg (26.0-33.0) Mean Corpuscular Hemoglobin Concent 34.7 g/dL (32.0-36.0) Red Cell Distribution Width 14.6 % (11.5-14.5) H Platelet Count 226 K/uL (150-450) Mean Platelet Volume 8.0 fL (7.2-11.1) Neutrophils (%) (Auto) 84.0 % (39.4-72.5) H Lymphocytes (%) (Auto) 6.5 % (17.6-49.6) L Monocytes (%) (Auto) 9.0 % (4.1-12.4) Eosinophils (%) (Auto) 0.1 % (0.4-6.7) L Basophils (%) (Auto) 0.4 % (0.3-1.4) Nucleated RBC Relative Count (auto) 0.0 /100WBC Neutrophils # (Auto) 6.2 K/uL (2.0-7.4) Lymphocytes # (Auto) 0.5 K/uL (1.3-3.6) L Monocytes # (Auto) 0.7 K/uL (0.3-1.0) Eosinophils # (Auto) 0.0 K/uL (0.0-0.5) Basophils # (Auto) 0.0 K/uL (0.0-0.1) Nucleated RBC Absolute Count (auto) 0.00 K/uL Chemistry Test 11/23/18 18:50 Sodium Level 134 mmol/L (137-145) Potassium Level 3.9 mmol/L (3.5-5.0) Chloride Level 101 mmol/L (98-107) Carbon Dioxide Level 23 mmol/L (22-31) Blood Urea Nitrogen 23 mg/dl (7-18) Creatinine 0.70 mg/dl (0.52-1.04) Glomerular Filtration Rate Calc > 60.0 Random Glucose 111 mg/dl (75-110) Lactate 0.8 mmol/L (0.7-2.1) Calcium Level 8.4 mg/dl (8.4-10.2) Total Bilirubin 1.4 mg/dl (0.2-1.3) Aspartate Amino Transf (AST/SGOT) 47 U/L (0-35) Alanine Aminotransferase (ALT/SGPT) 76 U/L (0-56) Alkaline Phosphatase 110 U/L (0-126) Total Protein 6.0 g/dl (6.3-8.2) Albumin 3.3 g/dl (3.5-5.0) Coagulation Test 11/23/18 18:50 Prothrombin Time 45.1 seconds (12.0-14.4) Prothromb Time International Ratio 4.65 Urinalysis Test 11/23/18 18:40 Urine Color Karen Urine Clarity Cloudy Urine pH 5.0 pH (4.8-9.5) Urine Specific [place] 1.025 Urine Protein 30 mg/dL (NEGATIVE) Urine Glucose (UA) Negative mg/dL (NEGATIVE) Urine Ketones Negative mg/dL (NEGATIVE) Urine Blood Negative (NEGATIVE) Urine Nitrite Negative (NEGATIVE) Urine Bilirubin Negative (NEGATIVE) Urine Urobilinogen Negative mg/dL (0.2-1.9) Urine Leukocyte Esterase Large (NEGATIVE) Urine RBC 8 /HPF (0-2/HPF) Urine WBC 986 /HPF (0-5/HPF) Urine WBC Clumps Many /HPF Urine Squamous Epithelial Cells Many /LPF (</=FEW) Urine Bacteria Many /HPF (NONE-FEW) Urine Mucus Few /HPF (NONE-FEW) ED Course/Re-evaluation ED Course 11/23/2018 7:08:29 pm patient with likely cellulitis, plan at this time will be to give 30 mL/kg of IV fluids, we will check lactate CBC and urinalysis we will also obtain blood culture. We will give an empiric dose of Rocephin for what appears to be cellulitis. We will also obtain an ultrasound of the left lower extremity to rule out DVT. 11/23/2018 8:55:44 pm ultrasound shows no evidence of DVT however there is an extensive abscess to the left thigh. I have contacted our general surgeon Dr. Andrea Graham who is coming in to evaluate the patient. His plan will be to 1st stick a needle in the area to see whether or not this is truly pus as the patient is on Coumadin and has a slightly elevated INR at 4.3. If he obtains plus he will make an incision and drain out the past and place packing. Decision to Disposition Date: Nov 23, 2018 Decision to Disposition Time: 21:40 Depart Departure Latest Vital Signs Vital Signs Date Time Temp Pulse Resp B/P (MAP) Pulse Ox O2 Delivery O2 Flow Rate FiO2 11/23/18 21:00 103 29 92/51 (65) 11/23/18 20:30 96 11/23/18 18:43 98.0 Room Air Impression: Primary Impression: Cellulitis Condition: Condition Unchanged Disposition: Admitted from ER (to ) Referrals: BECKY ESPARZA MD (PCP) Problem Qualifiers Primary Impression: Cellulitis Site of cellulitis: extremity Site of cellulitis of extremity: lower extremity Laterality: left Qualified Codes: L03.116 - Cellulitis of left lower limb ANA ESTEBAN MD Nov 23, 2018 18:42
[2018-11-23] MEDS ORDERED: NS 0.9% IV ONE (19:00)
[2018-11-23] MEDS ORDERED: cefTRIAXone 1 GM VIAL IVP ONE (19:00)
[2018-11-23 19:24] LABS: PLATELET COUNT, AUTOMATED 226 K/uL (150-450)
[2018-11-23 19:28] LABS: INR 4.65
--- NOTE | 2018-11-23 19:45 | RADIOLOGY IMAGING REPORT ---
FACILITY: [facility] PATIENT NAME: Radha Martinez : 1960 MR: [id number] V: [id number] EXAM DATE: ORDERING PHYSICIAN: ANA ESTEBAN TECHNOLOGIST: Location: [facility] Patient: Radha Martinez : 1960 Visit/Account:[id number] Date of Sevice: 11/23/2018 EXAMINATION: Chest 2 Views HISTORY: Fever. COMPARISON: 04/04/2017. FINDINGS: The lungs are hyperinflated. Slight scarring or atelectasis at the left base. No focal consolidatio n. No pleural effusion or pneumothorax. Sternotomy with postop cardiac changes including AVR. Right IJ central venous port with tip in the l ow SVC. Stable cardiomediastinal silhouette with mild cardiac enlargement and normal pulmonary vascu larity. No acute osseous findings. Thoracolumbar scoliosis with multilevel degenerative changes throughout t he spine. IMPRESSION: No evidence of acute cardiopulmonary disease. Stable exam. Report Dictated By: Neri Guerrero MD at 11/23/2018 7:34 PM Report E-Signed By: Neri Guerrero MD at 11/23/2018 7:38 PM WSN:[id number]
[2018-11-23] MEDS ORDERED: ACETAMINOPHEN 325 MG TAB PO ONE (21:00)
--- NOTE | 2018-11-23 21:00 | RADIOLOGY IMAGING REPORT ---
FACILITY: [facility] [place] PATIENT NAME: Radha Martinez : 1960 MR: [id number] V: [id number] EXAM DATE: ORDERING PHYSICIAN: ANA ESTEBAN TECHNOLOGIST: Location: [facility] [place] Patient: Radha Martinez : 1960 Visit/Account:[id number] Date of Sevice: 11/23/2018 EXAMINATION: US VENOUS LOWER EXT LT COMPARISON: None Available HISTORY: Left lower extremity swelling. Left groin lymph node biopsy June 2018. FINDINGS: Standard left lower extremity Doppler ultrasound with color flow and spectral analysis is p erformed. The common femoral, femoral, and popliteal veins are widely patent and compress appropriately. The v isualized calf veins and the proximal greater saphenous vein are patent. In the left inguinal region is a slightly complex hypoechoic nonvascular fluid collection measuring a t least 6 cm. No popliteal fluid collection. IMPRESSION: 1. No right lower extremity deep venous thrombus. 2. Left groin at least 6 cm complex hypoechoic nonvascular fluid collection. Given the history, this is favored to be a benign postoperative collection such as a seroma although correlation with any cli nical evidence of infection is recommended to exclude abscess. Although the collection is in close pr oximity to the femoral vasculature, there are no findings to suggest that this is a pseudoaneurysm. Report Dictated By: Daryl Morillo MD at 11/23/2018 8:46 PM Report E-Signed By: Daryl Morillo MD at 11/23/2018 8:51 PM WSN:[id number]
--- NOTE | 2018-11-23 21:38 | Gen Surgery History & Physical ---
History of Present Illness Chief Complaint left thigh swelling and pain History of Present Illness 57 yo f who began feeling poorly 5 days ago. she has had fever and shaking chills. poor appetite. her left thigh is red, swollen, and very painful. she had a melanoma on her left solano this was removed along with a left groin lymph node excision about 5 months ago. the left solano wound was draining until last week when it finally sealed. she also has h/o rectal cancer s/o radiation and chemo. History Home Meds Active Scripts Pravastatin Sodium (PRAVASTATIN SODIUM) 40 Mg Tablet, 40 MG PO QDAY, #90 TAB 3 Refills Prov:BECKY ESPARZA MD 06/17/18 Gabapentin (GABAPENTIN) 300 Mg Capsule, 1 TAB PO BID, #180 CAPSULE 3 Refills Prov:BECKY ESPARZA MD 03/27/18 Omeprazole (OMEPRAZOLE) 40 Mg Capsule.dr, 40 MG PO QDAY, #90 CAP 3 Refills Prov:BECKY ESPARZA MD 03/19/18 Reported Medications Warfarin Sodium (WARFARIN SODIUM) 5 Mg Tablet, 7.5 MG PO QDAY, TAB 01/03/18 Losartan Potassium (Losartan Potassium) 25 Mg Tablet, 25 MG PO DAILY 07/28/12 Multivitamins (Multivitamin) 1 Tab Tablet, 1 TAB PO DAILY 07/28/12 Docosahexanoic Acid/Epa (Fish Oil 1,000 Mg Capsule) 1 Cap Capsule, 1 CAP PO DAILY 07/28/12 Spironolactone (Spironolactone) 50 Mg Tablet, 50 MG PO DAILY 07/28/12 Metoprolol Tartrate (Metoprolol Tartrate) 100 Mg Tablet, 50 MG PO DAILY 07/28/12 Discontinued Reported Medications [Areds] No Conflict Check, 1 TAB PO BID 11/20/17 Cholecalciferol (Vitamin D3) (VITAMIN D) 5,000 Unit Tablet, 5000 UNIT PO DAILY 11/20/17 Acetaminophen (TYLENOL) 325 Mg Tablet, 325 MG PO PRN, TAB 03/19/17 Discontinued Scripts Prednisone (PREDNISONE) 20 Mg Tablet, 1 TAB PO BID for 5 Days, #10 TAB 0 Refills Prov:ARLIN GARG DNP, [employer]-BC 10/07/18 Azithromycin (ZITHROMAX) 250 Mg Tablet, 0 PO QDAY, #6 TAB 0 Refills TAKE 2 TABLETS ON DAY 1 AND 1 TABLET ON DAYS 2-5 Prov:ARLIN GARG DNP, [employer]-BC 10/07/18 Diphenoxylate Hcl/Atropine (DIPHENOXYLATE-ATROPINE TABLET) 1 Each Tablet, 1 EACH PO DAILY PRN for DIARRHEA, #30 TAB 1 Refill Prov:BECKY ESPARZA MD 05/28/18 Allergies: Coded Allergies: No Known Drug Allergies (Unverified , 11/23/18) Patient History: FH: arthritis MOTHER, , Age:76 FH: congestive heart failure FATHER, Age:92, Onset:91 FH: myocardial infarction MOTHER, , Age:76 Marfan syndrome Daughter Daughter Daughter Son Review of Systems Constitutional: Other (per hpi) Exam General Appearance: Alert, Awake, No Acute Distress Neuro: No Gross deficits Eyes: Other (per, eomi) ENT: Moist Mucous Membranes Cardiovascular: Other (mildly tachy) Respiratory: No Respiratory Distress GI: Other (abd soft) Extremities: Other (left thigh - left upper thight swelling, erthyema, fluctuance and ttp. extends from anterior thigh to medial thigh. does not extend into perineum. has sealed wound on left solano from where melanoma was removed. ) Psych: Alert & Oriented X3, Appropriate Mood & Affect Medical Decision Making Data Points Result Diagram: 11/23/18 1850 11/23/181849 Assessment and Plan Problems: (1) Wound of left lower extremity Status: Resolved Assessment & Plan: 11/23/18: this may be a lymphocele that is collecting now that the solano wound sealed. i drained the fluid collection and sent a portion for culture. pt has been feeling poorly including fever and chills. i will start abx and await culture results. daily wound care. will lower inr. hospitalist has been consulted. Venous Thromboembolism Antithrombotics Is Pt On Any Antithrombotics?: Yes SARAH CASTILLO Nov 23, 2018 21:38
[2018-11-23 22:00] VITALS: BP 85/53
[2018-11-23] MEDS ORDERED: traMADol 50 MG TAB PO PRN (22:15)
[2018-11-23] MEDS ORDERED: METO100T20 PO (22:24)
[2018-11-23] MEDS ORDERED: PRAV40TA78 PO (22:24)
[2018-11-23] MEDS ORDERED: OMEP40CA48 PO (22:24)
[2018-11-23] MEDS ORDERED: BIFI4CAP2 PO (22:25)
[2018-11-23] MEDS ORDERED: CALC625T80 PO (22:26)
[2018-11-23] MEDS ORDERED: WARFARIN SOD 5 MG TAB PO ONE (22:35)
[2018-11-23] MEDS ORDERED: APAP/HYDROCODONE 325/5 TAB PO PRN (22:55)
[2018-11-23] MEDS ORDERED: VANCOMYCIN(*) 1 GM VIAL 2 GM in NS(*) 0.9% 500 ML BAG 500 ML IVPB ONE (23:05)
--- NOTE | 2018-11-23 23:19 | Hospitalist Consultation ---
History of Present Illness Requesting Physician Reason for Consult Manage medications/medical problems. Chief Complaint Upper L leg pain History of Present Illness The patient is a 57 year old female with PMH significant for Marfan's syndrome, mechanical aortic valve, valvular cardiomyopathy (EF 35%) and recent removal of a malignant melanoma off of her left solano on July 08. The patient states the wound on her left solano did not heal very well. She also had LN dissection of her L groin. Per her report all LN taken were normal. About a week ago the patient noticed the top of her L leg was sore when her dogs would step on it. She also developed soreness in her left inguinal LN. She began having chills alternating with feeling warm. She did not notice any swelling or redness of her left leg at first but states she didn't really pay attention. This morning she noticed that the top of her L leg was becoming swollen/firm and had become red. She presented to [facility] ER for evaluation. The patient also had rectal cancer and underwent surgical removal of the cancer followed by radiation and chemotherapy in 2017. She still has a port in place in her right upper chest. The patient presented to [facility] today and was noted to have a warm, swollen, red upper left thigh. US showed a fluid collection. did perform an aspiration of the fluid collection in the ER and the fluid was sent to the lab for analysis and culture. The hospitalist service was consulted to manage the patient's medications/medical problems. History Problems: (1) Obesity (BMI 30.0-34.9) Status: Chronic (2) Scoliosis Status: Chronic (3) CVA (cerebral vascular accident) Status: Resolved Comment: 2001 (4) Marfan syndrome Status: Chronic (5) Peripheral neuropathy Status: Chronic (6) Obesity Status: Chronic (7) Valvular cardiomyopathy Status: Chronic (8) penitentiary (current) use of anticoagulants Status: Chronic (9) Marfans syndrome Status: Chronic (10) Hyperlipidemia Status: Chronic (11) Sleep apnea Status: Chronic (12) Chronic systolic (congestive) heart failure Status: Chronic (13) Malignant melanoma Status: Resolved (14) Adenocarcinoma of anal canal Status: Resolved (15) NSVT (nonsustained ventricular tachycardia) Status: Chronic (16) S/P AVR (aortic valve replacement) Status: Chronic Comment: 2001 (17) History of tubal ligation Status: Resolved (18) Hx of cholecystectomy Status: Resolved (19) Hx of tonsillectomy Status: Resolved Comment: 1962 (20) History of low anterior resection of rectum Status: Resolved Comment: 03/01 (21) Hx of cataract extraction Status: Resolved Comment: 2001 Home Meds Active Scripts Pravastatin Sodium (PRAVASTATIN SODIUM) 40 Mg Tablet, 40 MG PO HS, #90 TAB 3 Refills Prov:BRIANNA BAEZ MD 11/23/18 Omeprazole (OMEPRAZOLE) 40 Mg Capsule.dr, 40 MG PO QDAY PRN for heart burn, #90 CAP 3 Refills Prov:BRIANNA BAEZ MD 11/23/18 Gabapentin (GABAPENTIN) 300 Mg Capsule, 1 TAB PO BID, #180 CAPSULE 3 Refills Prov:NAT SLOAN MD 03/27/18 Reported Medications Calcium Polycarbophil (FIBER TABS) 625 Mg Tablet, 2 TAB PO DAILY 11/23/18 Bifidobacterium Infantis (ALIGN) 4 Mg Capsule, 4 MG PO QDAY, CAPSULE 11/23/18 Metoprolol Succinate (METOPROLOL SUCCINATE) 100 Mg Tab.er.24h, 0.5 TAB PO QDAY, TAB 11/23/18 Warfarin Sodium (WARFARIN SODIUM) 5 Mg Tablet, 7.5 MG PO HS, TAB 01/03/18 Losartan Potassium (Losartan Potassium) 25 Mg Tablet, 25 MG PO HS 07/28/12 Multivitamins (Multivitamin) 1 Tab Tablet, 1 TAB PO DAILY 07/28/12 Docosahexanoic Acid/Epa (Fish Oil 1,000 Mg Capsule) 1 Cap Capsule, 1 CAP PO HS 07/28/12 Spironolactone (Spironolactone) 50 Mg Tablet, 50 MG PO DAILY 07/28/12 Discontinued Reported Medications [Areds] No Conflict Check, 1 TAB PO BID 11/20/17 Cholecalciferol (Vitamin D3) (VITAMIN D) 5,000 Unit Tablet, 5000 UNIT PO DAILY 11/20/17 Acetaminophen (TYLENOL) 325 Mg Tablet, 325 MG PO PRN, TAB 03/19/17 Metoprolol Tartrate (Metoprolol Tartrate) 100 Mg Tablet, 50 MG PO DAILY 07/28/12 Discontinued Scripts Prednisone (PREDNISONE) 20 Mg Tablet, 1 TAB PO BID for 5 Days, #10 TAB 0 Refills Prov:ARLIN GARG DNP, [employer] 6/25/19 Azithromycin (ZITHROMAX) 250 Mg Tablet, 0 PO QDAY, #6 TAB 0 Refills TAKE 2 TABLETS ON DAY 1 AND 1 TABLET ON DAYS 2-5 Prov:ARLIN GARG DNP [facility] 10/07/18 Diphenoxylate Hcl/Atropine (DIPHENOXYLATE-ATROPINE TABLET) 1 Each Tablet, 1 EACH PO DAILY PRN for DIARRHEA, #30 TAB 1 Refill Prov:NAT SLOAN MD 05/28/18 Allergies: Coded Allergies: No Known Drug Allergies (Unverified , 11/23/18) Patient History: FH: arthritis MOTHER, , Age:76 FH: congestive heart failure FATHER, Age:92, Onset:91 FH: myocardial infarction MOTHER, , Age:76 Marfan syndrome Daughter Daughter Daughter Son Hx Smoking: No Smoking Status: Never Smoker Caffeine Intake: Tea Caffeine/Cups Per Day: Occassional Hx Alcohol Use: No Hx Substance Use Disorder: No Social Drug Use: Never History of IV Drug Use: No Review of Systems All Systems Reviewed/Normal: Yes, Except as Noted Constitutional: Fever, Chills Neurological: Weakness Cardiovascular: Palpitations Respiratory: Shortness of Breath, Other (Sleep apnea.) Gastrointestinal: No Nausea, No Vomiting; Other (Decrease in appetite.) Musculoskeletal: Pain (Top of L thigh.) Exam Vital Signs Vital Signs Date Time Temp Pulse Resp B/P (MAP) Pulse Ox O2 Delivery O2 Flow Rate FiO2 11/23/18 22:46 93 Room Air 11/23/18 22:00 98.8 105 24 85/53 (64) General Appearance: Alert, Awake, No Acute Distress Eyes: PERRLA Neck: No Masses Cardiovascular: Other (Tachy, regular with frequent ectopy.) Respiratory: No Respiratory Distress GI: Abd Soft and Non-Tender Extremities: Warm, Perfused, Other (L upper thigh is red, firm, warm and tender. Bandage in place over aspiration site.) Integumentary: Other (See above.) Psych: Alert & Oriented X3, Appropriate Mood & Affect Medical Decision Making Data Points Result Diagram: 11/23/18184911/23/181849 Item Value Date Time Lactate 0.8 mmol/L 11/23/181849 Calcium Level 8.4 mg/dl 8/11/19 1850 Total Bilirubin 1.4 mg/dl H 11/23/18 185 Aspartate Amino Transf (AST/SGOT) 47 U/L H 11/23/18 185 Alanine Aminotransferase (ALT/SGPT) 76 U/L H 11/23/18 185 Alkaline Phosphatase 110 U/L 11/23/18 185 Total Protein 6.0 g/dl L 11/23/18 185 Albumin 3.3 g/dl L 11/23/18 185 Prothrombin Time 45.1 seconds H 11/23/18 185 Prothromb Time International Ratio 4.65 11/23/18 185 Urine Color Karen 11/23/18 184 Urine Clarity Cloudy 11/23/181839 Urine pH 5.0 pH 11/23/18 184 [address] [place] 1.025 11/23/181839 Urine Protein 30 mg/dL 11/23/181839 Urine Glucose (UA) Negative mg/dL 11/23/181839 Urine Ketones Negative mg/dL 11/23/181839 Urine Blood Negative 11/23/18 184 Urine Nitrite Negative 11/23/18 184 Urine Bilirubin Negative 11/23/18 184 Urine Urobilinogen Negative mg/dL 11/23/18 184 Urine Leukocyte Esterase Large H 11/23/18 1840 Urine RBC 8 /HPF 11/23/18 1840 Urine WBC 986 /HPF 11/23/18 1840 Urine WBC Clumps Many /HPF 11/23/18 1840 Urine Squamous Epithelial Cells Many /LPF H 11/23/18 1840 Urine Bacteria Many /HPF H 11/23/18 1840 Urine Mucus Few /HPF 11/23/18 184 Blood, urine and fluid (L leg) cultures pending. EKG / Imaging Imaging FACILITY: [facility] PATIENT NAME: Rdaha Martinez : 1960 MR: [id number] V: [id number] EXAM DATE: ORDERING PHYSICIAN: ANA ESTEBAN TECHNOLOG[place] [facility] [place]ha [place] : 1960 Visit/Account:[id number] Date of Sevice: 11/23/2018 EXAMINATION: US VENOUS LOWER EXT LT COMPARISON: None Available HISTORY: Left lower extremity swelling. Left groin lymph node biopsy June 2018. FINDINGS: Standard left lower extremity Doppler ultrasound with color flow and spectral analysis is performed. The common femoral, femoral, and popliteal veins are widely patent and compress appropriately. The visualized calf veins and the proximal greater saphenous vein are patent. In the left inguinal region is a slightly complex hypoechoic nonvascular fluid collection measuring at least 6 cm. No popliteal fluid collection. IMPRESSION: 1. No right lower extremity deep venous thrombus. 2. Left groin at least 6 cm complex hypoechoic nonvascular fluid collection. Given the history, this is favored to be a benign postoperative collection such as a seroma although correlation with any clinical evidence of infection is recommended to exclude abscess. Although the collection is in close proximity to the femoral vasculature, there are no findings to suggest that this is a pseudoaneurysm. Report Dictated By: Daryl Morillo MD at 11/23/2018 8:46 PM Report E-Signed By: Daryl Morillo MD at 11/23/2018 8:51 PM WSN:[id number] FACILITY: [facility] PATIENT NAME: Radha Martinez : 1960 MR: [id number] V: [id number] EXAM DATE: ORDERING PHYSICIAN: ANA ESTEBAN TECHNOLOGIST: [place] [facility] [place] Radha [place] : 1960 Visit/Account:[id number] Date of Sevice: 11/23/2018 EXAMINATION: Chest 2 Views HISTORY: Fever. COMPARISON: 04/04/2017. FINDINGS: The lungs are hyperinflated. Slight scarring or atelectasis at the left base. No focal consolidation. No pleural effusion or pneumothorax. Sternotomy with postop cardiac changes including AVR. Right IJ central venous port with tip in the low SVC. Stable cardiomediastinal silhouette with mild cardiac enlargement and normal pulmonary vascularity. No acute osseous findings. Thoracolumbar scoliosis with multilevel degenerative changes throughout the spine. IMPRESSION: No evidence of acute cardiopulmonary disease. Stable exam. Report Dictated By: Neri Guerrero MD at 11/23/2018 7:34 PM Report E-Signed By: Neri Guerrero MD at 11/23/2018 7:38 PM WSN:[id number] Pre-Admit Course Medical Record Review: Yes Assessment and Plan Problems: (1) Cellulitis Status: Acute Assessment & Plan: The patient has a fluid collection L upper leg with overlying cellulitis. The fluid has been aspirated and sent for analysis and culture. is is managing. He may need to take the patient to OR for further drainage. The patient's INR was supratherapeutic at 4.6 tonight in ER. Will hold her Coumadin tonight. Daily INRs ordered. Because of her mechanical v alve, she is to maintain her INR between 2.5 and 3.5. (2) Urinary tract infection Status: Acute Assessment & Plan: UA shows over 900 WBCs. Urine sent for culture. She has been started on Zosyn for her cellulitis and this should cover her UTI as well. 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 Her INR in ER was 4.6. She is currently on 7.5mg daily. Will hold dose today in anticipation of possible surgical procedure in am. Daily INRs ordered. Restart Coumadin or bridge if needed starting tomorrow after procedure. (4) Palpitations Status: Chronic Assessment & Plan: Will place on telemetry. She does have a hx of nonsustained VT. She is on metoprolol XL 50mg daily. (5) Valvular cardiomyopathy *Optional Permanent Comment*: Class I Last Edited By: Nat Sloan MD on Feb 19, 2018 10:24 Status: Chronic Assessment & Plan: Her most recent echo showed an EF of 35%. She is on metoprolol XL 50mg daily and spironolactone 50mg daily. She sees a certified medical dosimetrist in [place]. (6) Marfans syndrome Status: Chronic Assessment & Plan: Chronic. (7) Peripheral neuropathy Status: Chronic Assessment & Plan: Continue gabapentin 300mg bid. (8) Hyperlipidemia Status: Chronic Assessment & Plan: Continue pravastatin 40mg at HS. (9) Sleep apnea Status: Chronic Assessment & Plan: Continue BiPAP. (10) Obesity (BMI 30.0-34.9) Status: Chronic Time Spent on Plan of Care: < 30 min Venous Thromboembolism Antithrombotics Is Pt On Any Antithrombotics?: Yes Exam Sepsis Risk: Possible Severe Sepsis Risk Problem Qualifiers (1) Cellulitis: Site of cellulitis: extremity Site of cellulitis of extremity: lower extremity Laterality: left Qualified Codes: L03.116 - Cellulitis of left lower limb BRIANNA BAEZ MD Nov 23, 2018 23:19
[2018-11-23] MEDS ORDERED: NS(*) 0.9% 500 ML BAG 500 ML ONE (23:41)
[2018-11-24] MEDS ORDERED: PIPERACILLIN/TAZO*3.375GM VIAL 3.375 GM in NS(*) 0.9% 100 ML MINI-BAG 100 ML IVPB SCH
[2018-11-24] MEDS: GABAPENTIN 300 MG CAP PO SCH ×3 (00:04→20:56)
[2018-11-24] MEDS: LOSARTAN POTASSIUM 50 MG TAB PO SCH ×2 (00:04→20:56)
[2018-11-24] MEDS: PRAVASTATIN SOD 20 MG TAB PO SCH ×2 (00:05→20:56)
[2018-11-24] MEDS: PIPERACILLIN/TAZO*3.375GM VIAL 3.375 GM in NS(*) 0.9% 100 ML MINI-BAG 100 ML IVPB SCH ×4 (02:15→20:15)
[2018-11-24 02:48] VITALS: BP 86/50
--- NOTE | 2018-11-24 03:22 | OPERATIVE REPORT 1 ---
EVENT DATE: November 23, 2018 SURGEON: Ulisses Graham MD ANESTHESIA: Local. REMEDIAL MASSEUR: None. PREOPERATIVE DIAGNOSIS Left thigh cellulitis and fluid collection. POSTOPERATIVE DIAGNOSIS Left thigh cellulitis and fluid collection. PROCEDURE PERFORMED Incision and drainage of left thigh fluid collection. ESTIMATED BLOOD LOSS Minimal. COMPLICATIONS None. SPECIMENS Culture swab. INDICATIONS FOR PROCEDURE This is a 57-year-old female with a melanoma on her left solano that was excised approximately five months ago. At that time, she also had left groin lymph node dissection. For the last few days, patient has felt poorly, with fevers and chills. She presented to the ER with a swollen, erythematous left thigh that was very painful. Ultrasound showed a large fluid collection. Risks and benefits of the procedure were explained and consent was signed. DESCRIPTION OF PROCEDURE The procedure was performed in the patient's room in the ER. Patient was prepped and draped in a sterile fashion. Local analgesia was injected over the fluctuant portion of the left thigh erythema. An 18-gauge needle was advanced and withdrawn. Relatively thick yellowish fluid was returned; however, there was no foul odor to it. I made a small incision and used the Yankauer suction to suck out the large fluid collection. This was approximately 200 mL. Some of this was sent for culture. I then packed the wound with strip gauze and placed a dressing. Patient tolerated the procedure well. There were no complications. [facility]
[2018-11-24 05:33] LABS: INR 4.27
[2018-11-24 05:36] LABS: PLATELET COUNT, AUTOMATED 181 K/uL (150-450)
--- NOTE | 2018-11-24 06:16 | EKG ---
FACILITY: [facility] [place] PATIENT NAME: PRICILLA CHRISTIAN : [id number] MR: [id number] V: [id number] EXAM DATE: ORDERING PHYSICIAN: BRIANNA BAEZ TECHNOLOGIST: ESTEVAN Test Reason : PALPIATIONS Blood Pressure : / mmHG Vent. Rate : 069 BPM Atrial Rate : 069 BPM P-R Int : 196 ms QRS Dur : 154 ms QT Int : 498 ms P-R-T Axes : 048 066 027 degrees QTc Int : 533 ms Sinus rhythm with Possible premature atrial complexes with aberrant conduction Right bundle branch block Abnormal ECG Confirmed by BRIANNA REID ([id number]) on 11/24/2018 6:32:25 AM Referred By: NESTOR Confirmed By:BRIANNA REID
[2018-11-24 06:57] VITALS: BP 82/54
[2018-11-24] MEDS ORDERED: POTASSIUM CHL 20 MEQ TABCR PO ONE (08:15)
--- NOTE | 2018-11-24 08:25 | General Surgery Progress Note ---
Subjective Progress Notes Subjective no acute events Physical Exam Vital Signs Date Time Temp Pulse Resp B/P (MAP) Pulse Ox O2 Delivery O2 Flow Rate FiO2 11/24/18 06:57 99.0 70 21 82/54 (63) 90 Room Air Intake and Output 11/24/18 07:03 Intake Total 2060 ml Balance 2060 ml Intake IV Total 2060 ml # Voids 1 General Appearance: No Acute Distress Cardiovascular: Other (reg rate) Extremities: Other (less erythema at wound site) Result Diagram: 11/24/18 0502 11/24/18 0502 Assessment and Plan Problems: (1) Wound of left lower extremity Status: Resolved Assessment & Plan: 11/23/18: this may be a lymphocele that is collecting now that the solano wound sealed. i drained the fluid collection and sent a portion for culture. pt has been feeling poorly including fever and chills. i will start abx and await culture results. daily wound care. will lower inr. hospitalist has been consulted. 11/24/18: diet as claudia. cont abx. gram stain/cx pending. no procedure today. Exam Sepsis Risk: Sepsis Risk SARAH CASTILLO Nov 24, 2018 08:25
[2018-11-24] MEDS ORDERED: VANCOMYCIN(*) 1 GM VIAL 1 GM in NS(*) 0.9% 250 ML BAG 250 ML IVPB SCH (09:00)
[2018-11-24] MEDS ORDERED: METOPROLOL SUCC XL 50 MG TABCR 50 MG TAB.ER.24H PO SCH (09:00)
[2018-11-24] MEDS ORDERED: ACETAMINOPHEN 500 MG TAB PO PRN (09:30)
[2018-11-24 11:08] VITALS: BP 83/46
[2018-11-24] MEDS: VANCOMYCIN(*) 1 GM VIAL 1 GM, VANCOMYCIN (*) 0.5 GM VIAL 0.25 GM in NS(*) 0.9% 250 ML B... IVPB SCH ×2 (11:21→23:39)
[2018-11-24] MEDS ORDERED: BIOT1CAP PO (14:05)
[2018-11-24] MEDS ORDERED: CHOL10005 PO (14:05)
--- NOTE | 2018-11-24 14:09 | Hospitalist Progress Note ---
Subjective Progress Notes Subjective MELISSA overnight, doing well this am. Await culture results, continue broad spectrum Abx. Patient Complains of: Cardiovascular: No: Chest Pain Respiratory: No: Cough Physical Exam Vital Signs Date Time Temp Pulse Resp B/P (MAP) Pulse Ox O2 Delivery O2 Flow Rate FiO2 11/24/18 13:18 96 11/24/18 13:09 Room Air 11/24/18 11:08 98.4 70 20 83/46 (58) Intake and Output 11/24/18 07:03 Intake Total 2060 ml Balance 2060 ml IV Total 2060 ml # Voids 1 General Appearance: Alert, Awake, No Acute Distress Neuro: No Gross deficits Cardiovascular: Normal Rhythm & Peripheral Pulses (metalic click) Respiratory: No Respiratory Distress GI: Soft and Non-Tender Extremities: Soft and Non Tender, Warm, Pulses, Perfused Result Diagram: 11/24/18 0502 11/24/18 0502 Assessment and Plan Problems: (1) Cellulitis Status: Acute Assessment & Plan: The patient has a fluid collection L upper leg with overlying cellulitis. The fluid has been aspirated and sent for analysis and culture. is is managing. The patient's INR is supratherapeutic, cont inue to hold warfarin. Daily INRs ordered. Because of her mechanical valve, she is to maintain her INR between 2.5 and 3.5. (2) Urinary tract infection Status: Acute Assessment & Plan: UA shows over 900 WBCs. Urine sent for culture, growing GNR. She has been started on Zosyn for her cellulitis and this should cover her UTI as well. 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 Her INR in ER was 4.6. She is currently on 7.5mg daily. Continue to hold warfarin, will restart when approaching therapeutic range. (4) Palpitations Status: Chronic Assessment & Plan: Will place on telemetry. She does have a hx of nonsustained VT. She is on metoprolol XL 50mg daily, BP has been low, will decrease to 25mg and monitor. (5) Valvular cardiomyopathy *Optional Permanent Comment*: Class I Last Edited By: Nat Sloan MD on Feb 19, 2018 10:24 Status: Chronic Assessment & Plan: Her most recent echo showed an EF of 35%. She is on metoprolol XL 50mg daily and spironolactone 50mg daily. She sees a tattoo designer in [place]. Decreased metoprolol to 25mg due to BP, spironolactone on hold. (6) Marfans syndrome Status: Chronic Assessment & Plan: Chronic. (7) Peripheral neuropathy Status: Chronic Assessment & Plan: Continue gabapentin 300mg bid. (8) Hyperlipidemia Status: Chronic Assessment & Plan: Continue pravastatin 40mg at HS. (9) Sleep apnea Status: Chronic Assessment & Plan: Continue BiPAP. (10) Obesity (BMI 30.0-34.9) Status: Chronic Exam Sepsis Risk: No Definite Risk Problem Qualifiers (1) Cellulitis: Site of cellulitis: extremity Site of cellulitis of extremity: lower extremity Laterality: left Qualified Codes: L03.116 - Cellulitis of left lower limb NICHOLE JENKINS DO Nov 24, 2018 14:09
--- NOTE | 2018-11-24 14:40 | Pharmacy Note ---
Vancomycin Management Note Vanco Dosing Note Pharmacy Services Pharmacokinetic Dosing Consult, Vancomycin Pharmacy has been consulted for dosing and monitoring of vancomycin for 57 yo female for cellulitis. Pertinent Past Medical History: CHF, periph neuropathy, obesity Antibiotics prior to admission; azith 10/07/18, keflex 08/28/18 Additional Antimicrobials: zosyn 3.375g Q6h Start 11/24 Patient Information: Height (cm): 172.72 cm Actual Body Weight (ABW): 99.3 kg Pertinent Lab Tests WHITE BLOOD COUNT 5.9 NEUTROPHILS 86.5 BLOOD UREA NITROGEN 13 SCR 0.5 VANCOMYCIN TROUGH VANCOMYCIN RANDOM Culture Results: BLOOD no growth URINE g- SPUTUM WOUND no growth Assessment: CrCl ~125ml/min Renal function is stable Vancomycin Monitoring Assessment Goal Vancomycin Trough Level: 15-20 Plan: 1) Vancomycin 25 mg/kg loading dose (based on ABW): 2000 mg IV x 1 2) Vancomycin maintenance dose (based on ABW): dose at 1250mg Q12h - may need increased dose/frequency based on actual BW and good renal flow 3) Vancomycin monitoring: will check vanco level on 11/25/18 at 1000, 1 hr before the 4th dose. Pharmacy will continue to monitor daily and adjust regimen as appropriate. Thank you for the consult. DAVID WINTERS Nov 24, 2018 14:40
[2018-11-24 14:44] VITALS: BP 95/62
--- NOTE | 2018-11-24 15:24 | Antimicrobial Stewardship ---
Antimicrobial Time Out Antimicrobial Stewardship MD Service: Hospitalist (WITH SURGERY - JONATHAN) Indications: Cellulitis Antimicrobial Used VANCO AND ZOSYN 3.375G Start Date: Nov 24, 2018 Culture Results: No (NO GROWTH ) Eligible for PO Conversion Eligable for PO Conversion: No Reviewed with Provider Reviewed w/ Provider on Rounds: No Comments Comments Patient admitted with possible cellulitis (lymph involvement) 5 months post op. Unknown organism so continue broad coverage until narrowing indicated by cultures. DAVID WINTERS Nov 24, 2018 15:24
[2018-11-24 23:48] VITALS: BP 103/73
[2018-11-25] VITALS (9 sets, daily range): BP systolic 86–115; BP diastolic 50–78
[2018-11-25] MEDS: PIPERACILLIN/TAZO*3.375GM VIAL 3.375 GM in NS(*) 0.9% 100 ML MINI-BAG 100 ML IVPB SCH ×4 (02:01→19:55)
[2018-11-25 05:27] LABS: INR 3.48
--- NOTE | 2018-11-25 07:44 | RADIOLOGY IMAGING REPORT ---
FACILITY: [facility] PATIENT NAME: Radha Martinez : 1960 MR: [id number] V: [id number] EXAM DATE: ORDERING PHYSICIAN: ESVIN MONTOYA TECHNOLOGIST: Location: [facility] Patient: Radha Martinez : 1960 Visit/Account:[id number] Date of Sevice: 11/25/2018 CT Head without contrast Indication: FALL Comparison: None available. Technique: Axial CT images were obtained through the brain from the skull base to the vertex without administration of IV contrast. One of the following dose optimization techniques was utilized in th e performance of this exam: Automated exposure control; adjustment of the mA and/or kV according to t he patient's size; or use of an iterative reconstruction technique. Specific details can be referen kelly in the facility's radiology CT exam operational policy. Findings: Left posterior scalp contusion/laceration. No fracture. Prominent arachnoid granulations in the occiput. No evidence of mass, mass effect, or midline shift. No acute intracranial hemorrhage or acute territorial infarction. Moderate region of encephalomalacia in the right MCA distribution consistent with remote infarct. Remote lacunar infarcts involving the left caudate and bilateral cerebellar hemispheres. Bilateral lens surgeries. The visualized paranasal sinuses and mastoid air spaces are clear. IMPRESSION: 1. Left posterior scalp injury with no fracture or acute intracranial abnormality. 2. Moderate size remote right MCA distribution infarct. 3. Remote lacunar infarcts involving the left caudate and bilateral cerebellar hemispheres. Report Dictated By: Manuel Camacho MD at 11/25/2018 7:31 AM Report E-Signed By: Manuel Camacho MD at 11/25/2018 7:36 AM WSN:[id number]
--- NOTE | 2018-11-25 07:51 | NUR ---
Afshin Martinez, spouse notified of fall and CT scan at 0716 11/25/18
[2018-11-25] MEDS: ACETAMINOPHEN 500 MG TAB PO PRN ×2 (08:44→20:03)
[2018-11-25] MEDS: METOPROLOL SUCC XL 25 MG TABCR PO SCH (08:50)
[2018-11-25] MEDS: GABAPENTIN 300 MG CAP PO SCH ×2 (08:50→21:06)
--- NOTE | 2018-11-25 10:41 | Medical Nutrition Therapy ---
Nutrition Anthropometrics Height (Inches): 68.00 Height (Calculated Centimeters: 172.106081 Weight (Pounds): 219 Weight (Calculated Kilograms): 99.337 BMI: 33.3 [place] Nutrition Score: Probably Inadequate [place] Nutrition Risk Score: 18 Dietary Referral Nutrition Risk Factors: Non-Healing Wound Nutrition Risk Comment: at risk for dehydration Physical Findings Physical Appearance: Obese BMI 30-39 Skin Appearance Skin Appearance: Edema Edema Location Modifier: Left Edema Location: Foot Type of Edema: Degree of Edema: Gastrointestinal Symptoms GI Symtoms: Appetite Changes, Diarrhea, Change in Bowel Pattern Tube Present: Bowel Sounds: Recent Bowel Pattern: Diarrhea Stool Characteristics: Nutritional Diagnosis Nutritional Risk Acuity 2: Abcess/Non-Healing Wound Past Medical History: Marfan, anal Ca, CVA Nutritional Acuity: 2-Moderate Nutrition Diagnosis: Increased Nutrient Needs Nutrition Etiology: Physiological Causes Nutrition Problem/Etiology/Sym: AEB dx cellulitis, non healing wound, alb 2.5 Adjusted Energy Requirement Re: 2100 (IR adj for obesity) Protein Requirement: 99 (1gm/kg AW) Fluid Requirement: 2100 (1ml/ kcal) Diet Type: Diet as Tolerated ARABELLA/REG Nutrition Intervention: Cont diet as ordered, Encourage intake Additional Diet Restrictions: OFFER MARY [employer] BRFT AND SUPPER Nutrition Monitoring & Eval Nutrition Goals: Eat 75-100% Meal RD Patient Assessment Time: [address] Assessment Type: RD Assessment Patient Nutrition Acuity: 2-Moderate Follow Up Date: Nov 30, 2018 Nutritional Comment: 11/25 Pt admitted for cellulitis with non-healing wound. Pt on regular diet and eating 100%. Will offer wound healing nutr supplement. Alb low at 2.5. BMI is within class 1 obesity range. Pt does have non-pitting edema to L foot. Will cont to monitor and encourage intake. BRIAN CORRIGAN Nov 24, 2018 09:50
--- NOTE | 2018-11-25 10:53 | Pharmacy Note ---
Vancomycin Management Note Vanco Dosing Note Vancomycin trough = 13.87 on 11/25 at 1000 ; dose increased to 1.5 gm q12 hours with the next trough due on 11/26 at 1000. BRIANNA CASILLAS Nov 25, 2018 10:53
[2018-11-25] MEDS: VANCOMYCIN(*) 1 GM VIAL 1 GM, VANCOMYCIN (*) 0.5 GM VIAL 0.5 GM in NS(*) 0.9% 250 ML BA... IVPB SCH ×2 (11:05→23:21)
--- NOTE | 2018-11-25 12:56 | Hospitalist Progress Note ---
Subjective Progress Notes Subjective She had a fall this morning. She was in the bathroom and went to grab a wipe. She became very dizzy and had nothing to hold onto. She did hit the back of her head. No LOC. No focal weakness. Still having dizziness with moving her head. Physical Exam Vital Signs Date Time Temp Pulse Resp B/P (MAP) Pulse Ox O2 Delivery O2 Flow Rate FiO2 11/25/18 11:14 97.7 98 18 105/76 (86) 94 Room Air 100 Intake and Output 11/25/18 07:03 Intake Total 1747.0 ml Balance 1747.0 ml Intake Oral 922 ml IV Total 825.0 ml # Voids 2 General Appearance: Alert, Awake, No Acute Distress Neuro: No Gross deficits, Other (She became transiently dizzy with all changes of position during the Hallpike maneuvers.) Cardiovascular: Regular Rate and Rhythm (2/6 systolic murmur) Respiratory: Clear to Auscultation Result Diagram: 11/24/18 0502 11/25/18 0504 Assessment and Plan Problems: (1) Cellulitis Status: Acute Assessment & Plan: The patient has a fluid collection L upper leg with overlying cellulitis. The fluid has been aspirated and sent for analysis and culture. is is managing. She is on Vancomycin and Zosyn. Will need to follow renal function closely. (2) Urinary tract infection Status: Acute Assessment & Plan: UA shows over 900 WBCs. Urine sent for culture, growing GNR. She has been started on Zosyn for her cellulitis and this should cover her UTI as well. 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 Her INR in ER was 4.6. She was on 7.5mg daily. INR today is 3.48. Will restart at 5mg a day because of the antibiotic use. Daily INRs ordered. (4) Dizziness Status: Acute Assessment & Plan: The morning of 11/25, the patient was in the bathroom got vertigo symptoms and fell. She had no LOC. She does have small laceration on the occiput. The bleeding has stopped. Head CT showed no intracranial bleeding. She was symptomatic with dizziness with all position changes during the Hallpike maneuver. Follow symptoms. (5) Palpitations Status: Chronic Assessment & Plan: Will place on telemetry. She does have a hx of nonsustained VT. She is on metoprolol XL 50mg daily, BP has been low normal, so currently on 25mg and monitor. (6) Valvular cardiomyopathy *Optional Permanent Comment*: Class I Last Edited By: Nat Sloan MD on Feb 19, 2018 10:24 Status: Chronic Assessment & Plan: Her most recent echo showed an EF of 35%. She is on metoprolol XL 50mg daily and spironolactone 50mg daily. She sees a medical technician assistant in [place]. Decreased metoprolol to 25mg due to BP, spironolactone on hold. 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 (8) Peripheral neuropathy Status: Chronic Assessment & Plan: Continue gabapentin 300mg bid. (9) Hyperlipidemia Status: Chronic Assessment & Plan: Continue pravastatin 40mg at HS. (10) Sleep apnea Status: Chronic Assessment & Plan: Continue BiPAP. (11) Obesity (BMI 30.0-34.9) Status: Chronic Exam Sepsis Risk: No Definite Risk Problem Qualifiers (1) Cellulitis: Site of cellulitis: extremity Site of cellulitis of extremity: lower extremity Laterality: left Qualified Codes: L03.116 - Cellulitis of left lower limb JEREMIE FISHER MD Nov 25, 2018 12:56
[2018-11-25] MEDS: WARFARIN SOD 5 MG TAB PO SCH (13:31)
--- NOTE | 2018-11-25 14:10 | General Surgery Progress Note ---
Subjective Progress Notes Subjective pt fell. she was dizzy prior to the fall. ct showed no intracranial bleed. Physical Exam Vital Signs Date Time Temp Pulse Resp B/P (MAP) Pulse Ox O2 Delivery O2 Flow Rate FiO2 11/25/18 12:35 101 11/25/18 11:14 97.7 18 105/76 (86) 94 Room Air Intake and Output 11/25/18 07:03 Intake Total 1747.0 ml Balance 1747.0 ml Intake Oral 922 ml IV Total 825.0 ml # Voids 2 General Appearance: Alert, Awake, No Acute Distress Cardiovascular: Other (reg rate) Extremities: Other (left thigh still with erythema. straw colored discharged. i broke any loculations and repacked wound. ) Result Diagram: 11/24/18 0502 11/25/18 0504 Assessment and Plan Problems: (1) Wound of left lower extremity Status: Resolved Assessment & Plan: 11/23/18: this may be a lymphocele that is collecting now that the solano wound sealed. i drained the fluid collection and sent a portion for culture. pt has been feeling poorly including fever and chills. i will start abx and await culture results. daily wound care. will lower inr. hospitalist has been consulted. 11/24/18: diet as claudia. cont abx. gram stain/cx pending. no procedure today. 11/25/18: i repacked wound. cont abx. diet as claudia. restart coumadin. monitor after fall. Exam Sepsis Risk: No Definite Risk SARAH CASTILLO Nov 25, 2018 14:10
[2018-11-25] MEDS: LOSARTAN POTASSIUM 50 MG TAB PO SCH (21:05)
[2018-11-25] MEDS: PRAVASTATIN SOD 20 MG TAB PO SCH (21:06)
[2018-11-26] MEDS: PIPERACILLIN/TAZO*3.375GM VIAL 3.375 GM in NS(*) 0.9% 100 ML MINI-BAG 100 ML IVPB SCH ×4 (02:00→21:10)
[2018-11-26 03:21] VITALS: BP 90/50
[2018-11-26] MEDS: ACETAMINOPHEN 500 MG TAB PO PRN ×2 (03:56→14:44)
[2018-11-26 06:11] LABS: INR 3.28
[2018-11-26 06:57] VITALS: BP 98/63
--- NOTE | 2018-11-26 07:52 | Antimicrobial Stewardship ---
Antimicrobial Time Out Antimicrobial Stewardship MD Service: Hospitalist Indications: Cellulitis Antimicrobial Used Zosyn and Vancomycin Start Date: Nov 24, 2018 Culture Results: Yes (Cultures from wound show gram negative rods with sensitivities pending; blood cx no growth after 2 days and urine cx moreland sensitive e. coli.) Eligible for PO Conversion Eligable for PO Conversion: No VINNYBRIANNA SMYTH Nov 26, 2018 07:52
[2018-11-26] MEDS: GABAPENTIN 300 MG CAP PO SCH ×2 (08:37→21:10)
[2018-11-26] MEDS: METOPROLOL SUCC XL 25 MG TABCR PO SCH (08:37)
--- NOTE | 2018-11-26 10:04 | General Surgery Progress Note ---
Subjective Progress Notes Subjective feeling better Physical Exam Vital Signs Date Time Temp Pulse Resp B/P (MAP) Pulse Ox O2 Delivery O2 Flow Rate FiO2 11/26/18 07:55 92 Nasal Cannula 2.0 11/26/18 06:57 97.9 64 98/63 (75) 11/26/18 03:21 22 Intake and Output 11/26/18 07:04 Intake Total 1050 ml Balance 1050 ml Intake Oral 120 ml IV Total 930 ml # Voids 2 General Appearance: No Acute Distress Cardiovascular: Other (reg rate) Extremities: Other (wound dressed) Result Diagram: 11/24/18 0502 11/25/18 0504 Assessment and Plan Problems: (1) Wound of left lower extremity Status: Resolved Assessment & Plan: 11/23/18: this may be a lymphocele that is collecting now that the solano wound sealed. i drained the fluid collection and sent a portion for culture. pt has been feeling poorly including fever and chills. i will start abx and await culture results. daily wound care. will lower inr. hospitalist has been consulted. 11/24/18: diet as claudia. cont abx. gram stain/cx pending. no procedure today. 11/25/18: i repacked wound. cont abx. diet as claudia. restart coumadin. monitor after fall. 11/26/18: cont wound care and abx for gram neg eddie. cont coumadin. home soon. Exam Sepsis Risk: No Definite Risk SARAH CASTILLO Nov 26, 2018 10:04
[2018-11-26 11:12] VITALS: BP 97/81
[2018-11-26] MEDS: WARFARIN SOD 5 MG TAB PO SCH (12:35)
--- NOTE | 2018-11-26 12:40 | Hospitalist Progress Note ---
Subjective Progress Notes Subjective She reports vertigo/dizziness has resolved. She has noted decreased hearing especially in left ear. Physical Exam Vital Signs Date Time Temp Pulse Resp B/P (MAP) Pulse Ox O2 Delivery O2 Flow Rate FiO2 11/26/18 11:12 97.6 96 97/81 (86) 97 Room Air 11/26/18 07:55 2.0 11/26/18 03:21 22 Intake and Output 11/26/18 07:04 Intake Total 1050 ml Balance 1050 ml Intake Oral 120 ml IV Total 930 ml # Voids 2 General Appearance: Alert, Awake Neuro: No Gross deficits ENT: External Auditory Canals Clear (TMs unremarkable) Cardiovascular: Other (Regular with occasional ectopy and valve click) Respiratory: Other (essentially clear) Extremities: Warm, Perfused, Other (wound not examined) Psych: Alert & Oriented X3 Result Diagram: 11/24/18 0502 11/25/18 0504 Assessment and Plan Problems: (1) Cellulitis Status: Acute Assessment & Plan: The patient had a fluid collection left upper leg with overlying cellulitis. The fluid/area has been I&D with . Culture is growing GNR (and urine culture is growing E. coli). She is on IV vancomycin and Zosyn. Will now stop the vancomycin and continue the Zosyn. (2) Urinary tract infection Status: Acute Assessment & Plan: UA shows over 900 WBCs. Urine sent for culture, growing E. coli. She has been started on Zosyn for her cellulitis and this should cover her UTI as well. 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 Her INR in ER was 4.6. She was on 7.5mg daily. INR today is 3.28. We will continue with 5mg a day. Daily INRs ordered. (4) Dizziness Status: Acute Assessment & Plan: The morning of 11/25, the patient was in the bathroom got vertigo symptoms and fell. She had no LOC. She does have small laceration on the occiput. The bleeding has stopped. Head CT showed no intracranial bleeding. She was symptomatic with dizziness with all position changes during the Hallpike maneuver. She has had some chronic auditory acuity loss, which could raise the question of Meniere's disease. Follow symptoms. (5) Palpitations Status: Chronic Assessment & Plan: She does have fairly frequent ectopy. She has a history of nonsustained VT. She has been on metoprolol XL 50mg daily, but BP has been low normal, so currently on 25mg daily. Monitor. (6) Valvular cardiomyopathy *Optional Permanent Comment*: Class I Last Edited By: Nat Sloan MD on Feb 19, 2018 10:24 Status: Chronic Assessment & Plan: Her most recent echo showed an EF of 35%. She was previously on metoprolol XL 50mg daily and spironolactone 50mg daily. She follows with a scientific affairs manager in [place], [place]. We have decreased metoprolol to 25mg due to BP, spironolactone on hold. 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 (8) Peripheral neuropathy Status: Chronic Assessment & Plan: Continue gabapentin 300mg bid. (9) Hyperlipidemia Status: Chronic Assessment & Plan: Continue pravastatin 40mg at HS. (10) Sleep apnea Status: Chronic Assessment & Plan: Continue BiPAP. (11) Obesity (BMI 30.0-34.9) Status: Chronic Exam Sepsis Risk: No Definite Risk Problem Qualifiers (1) Cellulitis: Site of cellulitis: extremity Site of cellulitis of extremity: lower extremity Laterality: left Qualified Codes: L03.116 - Cellulitis of left lower limb WILIAN BAEZ MD Nov 26, 2018 12:40
[2018-11-26 14:27] VITALS: BP 102/59
[2018-11-26 18:21] VITALS: BP 87/52
[2018-11-26 18:37] VITALS: BP 90/60
[2018-11-26] MEDS: LOSARTAN POTASSIUM 50 MG TAB PO SCH (21:00)
[2018-11-26] MEDS: PRAVASTATIN SOD 20 MG TAB PO SCH (21:10)
[2018-11-27] MEDS: PIPERACILLIN/TAZO*3.375GM VIAL 3.375 GM in NS(*) 0.9% 100 ML MINI-BAG 100 ML IVPB SCH ×2 (02:22→07:18)
[2018-11-27 03:11] VITALS: BP 99/67
[2018-11-27 06:08] LABS: PLATELET COUNT, AUTOMATED 344 K/uL (150-450)
[2018-11-27 06:31] LABS: INR 3.46
[2018-11-27 07:04] VITALS: BP 105/63
[2018-11-27] MEDS: ACETAMINOPHEN 500 MG TAB PO PRN ×2 (07:17→16:39)
[2018-11-27] MEDS: METOPROLOL SUCC XL 25 MG TABCR PO SCH (09:05)
[2018-11-27] MEDS: GABAPENTIN 300 MG CAP PO SCH ×2 (09:06→20:30)
--- NOTE | 2018-11-27 09:30 | General Surgery Progress Note ---
Subjective Progress Notes Subjective no acute events Physical Exam Vital Signs Date Time Temp Pulse Resp B/P (MAP) Pulse Ox O2 Delivery O2 Flow Rate FiO2 11/27/18 08:06 101 11/27/18 07:27 92 Room Air 11/27/18 07:04 14 105/63 (77) 11/26/18 23:45 2.0 11/26/18 18:21 97.7 Intake and Output 11/27/18 07:04 Intake Total 860 ml Balance 860 ml Intake Oral 660 ml IV Total 200 ml # Voids 4 # Bowel Movements 3 General Appearance: No Acute Distress Cardiovascular: Other (reg rate) GI: Other (cellulitis extending laterally on thigh. overall, wound is improv ing. clear drainage. i repacked wound. ) Result Diagram: 11/27/18 0508 11/27/18 0508 Assessment and Plan Problems: (1) Wound of left lower extremity Status: Resolved Assessment & Plan: 11/23/18: this may be a lymphocele that is collecting now that the solano wound sealed. i drained the fluid collection and sent a portion for culture. pt has been feeling poorly including fever and chills. i will start abx and await culture results. daily wound care. will lower inr. hospitalist has been consulted. 11/24/18: diet as claudia. cont abx. gram stain/cx pending. no procedure today. 11/25/18: i repacked wound. cont abx. diet as claudia. restart coumadin. monitor after fall. 11/26/18: cont wound care and abx for gram neg eddie. cont coumadin. home soon. 11/27/18: cont wound care and abx. i will discuss with surg onc. home soon. Exam Sepsis Risk: No Definite Risk SARAH CASTILLO Nov 27, 2018 09:30
[2018-11-27] MEDS ORDERED: METOPROLOL SUCC XL 25 MG TABCR PO ONE (10:30)
[2018-11-27 10:34] VITALS: BP 88/62
--- NOTE | 2018-11-27 11:57 | Hospitalist Progress Note ---
Subjective Progress Notes Subjective She is feeling a bit dizzy currently. Physical Exam Vital Signs Date Time Temp Pulse Resp B/P (MAP) Pulse Ox O2 Delivery O2 Flow Rate FiO2 11/27/18 10:34 97.8 83 16 88/62 (71) 94 Room Air 11/26/18 23:45 2.0 Intake and Output 11/27/18 07:04 Intake Total 860 ml Balance 860 ml Intake Oral 660 ml IV Total 200 ml # Voids 4 # Bowel Movements 3 General Appearance: Alert, Awake, No Acute Distress Extremities: Edema (L>R with trace pitting up leg) Result Diagram: 11/27/18 0508 11/27/18 0508 Assessment and Plan Problems: (1) Cellulitis Status: Acute Assessment & Plan: The patient had a fluid collection left upper leg with overlying cellulitis. The fluid/area has been I&D with . Culture is growing Serratia Marcenscens (and urine culture is growing E. coli). She is on IV Zosyn, but will stop and switch to Bactrim for a total of 14days of abx therapy, per . Fluoroquinolones are contraindicated in her because of the risk of aortic aneurysm and dissection with Marfans. Her potassium will have to be watched closely because of the ARB and spironolactone use. (2) Urinary tract infection Status: Acute Assessment & Plan: UA shows over 900 WBCs. Urine sent for culture, growing E. coli. She has been started on Zosyn. Bactrim will also cover it well. 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 Her INR in ER was 4.6. She was on 7.5mg daily. INR today is 3.46. She was started on 5mg a day on 11/25. The dose to be decreased to 2.5mg today. Daily INRs ordered. Will need to follow closely while on antibiotics. (4) Valvular cardiomyopathy *Optional Permanent Comment*: Class I Last Edited By: Nat Sloan MD on Feb 19, 2018 10:24 Status: Chronic Assessment & Plan: Her most recent echo showed an EF of 35%. She was previously on metoprolol XL 50mg daily, losartan 25mg and spironolactone 50mg daily. She follows with a optical manufacturing technician in [place], [place]. We have decreased metoprolol to 25mg due to BP, spironolactone on hold. Today will increase back to 50mg on the metoprolol and try to restart spironolactone. Losartan was held last night because of lower BP. (5) Dizziness Status: Acute Assessment & Plan: The morning of 11/25, the patient was in the bathroom got vertigo symptoms and fell. She had no LOC. She does have small laceration on the occiput. The bleeding has stopped. Head CT showed no intracranial bleeding. She was symptomatic with dizziness with all position changes during the Hallpike maneuver. She has had some chronic auditory acuity loss, which could raise the question of Meniere's disease. Follow symptoms. (6) Palpitations Status: Chronic Assessment & Plan: She does have fairly frequent ectopy. She has a history of nonsustained VT. She has been on metoprolol XL 50mg daily, but BP has been low normal, so currently on 25mg daily. Will increase to 50mg today. Monitor. 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 (8) Peripheral neuropathy Status: Chronic Assessment & Plan: Continue gabapentin 300mg bid. (9) Hyperlipidemia Status: Chronic Assessment & Plan: Continue pravastatin 40mg at HS. (10) Sleep apnea Status: Chronic Assessment & Plan: Continue BiPAP. (11) Obesity (BMI 30.0-34.9) Status: Chronic Exam Sepsis Risk: No Definite Risk Problem Qualifiers (1) Cellulitis: Site of cellulitis: extremity Site of cellulitis of extremity: lower extremity Laterality: left Qualified Codes: L03.116 - Cellulitis of left lower limb JEREMIE FISHER MD Nov 27, 2018 11:57
[2018-11-27] MEDS ORDERED: SPIRONOLACTONE 25 MG TAB PO ONE (12:00)
[2018-11-27] MEDS ORDERED: WARFARIN SOD 2.5 MG TAB PO SCH (13:00)
[2018-11-27] MEDS ORDERED: PIPERACILLIN/TAZO*3.375GM VIAL 3.375 GM in NS(*) 0.9% 100 ML MINI-BAG 100 ML IVPB SCH (14:00)
[2018-11-27 14:23] VITALS: BP 94/68
[2018-11-27 18:50] VITALS: BP 87/60
[2018-11-27] MEDS: LOSARTAN POTASSIUM 50 MG TAB PO SCH (20:31)
[2018-11-27] MEDS: PRAVASTATIN SOD 20 MG TAB PO SCH (20:31)
[2018-11-27] MEDS: TRIMETH/SULFA DS 160-800MG TAB PO SCH (20:31)
[2018-11-27 23:15] VITALS: BP 89/60
[2018-11-28 03:32] VITALS: BP 97/64
[2018-11-28 05:44] LABS: PLATELET COUNT, AUTOMATED 354 K/uL (150-450)
[2018-11-28 05:51] LABS: INR 3.74
[2018-11-28 06:59] VITALS: BP 96/59
[2018-11-28] MEDS: ACETAMINOPHEN 500 MG TAB PO PRN (07:35)
[2018-11-28] MEDS ORDERED: METOPROLOL SUCC XL 25 MG TABCR PO SCH (09:00)
[2018-11-28] MEDS ORDERED: SPIRONOLACTONE 25 MG TAB PO SCH (09:00)
[2018-11-28] MEDS: GABAPENTIN 300 MG CAP PO SCH (09:17)
[2018-11-28] MEDS: TRIMETH/SULFA DS 160-800MG TAB PO SCH (09:17)
[2018-11-28] MEDS ORDERED: SULF-198 PO ×2 (10:55→11:42)
--- NOTE | 2018-11-28 10:57 | Hospitalist Depart ---
Discharge Summary Reason for Hosp/Final Diag: (1) Wound of left lower extremity Status: Resolved Hospital Course & Plan: 11/23/18: this may be a lymphocele that is collecting now that the solano wound sealed. i drained the fluid collection and sent a portion for culture. pt has been feeling poorly including fever and chills. i will start abx and await culture results. daily wound care. will lower inr. hospitalist has been consulted. 11/24/18: diet as claudia. cont abx. gram stain/cx pending. no procedure today. 11/25/18: i repacked wound. cont abx. diet as claudia. restart coumadin. monitor after fall. 11/26/18: cont wound care and abx for gram neg eddie. cont coumadin. home soon. 11/27/18: cont wound care and abx. i will discuss with surg onc. home soon. 11/28/18: doing fine. still erythema around woud, and drainage. will pack wound at home. d/c home. Departure Weight (Pounds): 219 Weight (Ounces): 4.0 Result Diagram: 11/28/1850911/28/18 0510 Condition: Improved Discharge: Home Discharge Instructions Home Meds Active Scripts Sulfamethoxazole/Trimet 800-160 Mg Tab (BACTRIM DS TABLET) 1 Each Tablet, 1 TAB PO Q12H for 7 Days, #14 TAB Prov:SARAH CASTILLO 11/28/18 Pravastatin Sodium (PRAVASTATIN SODIUM) 40 Mg Tablet, 40 MG PO HS, #90 TAB 3 Refills Prov:BRIANNA BAEZ MD 11/23/18 Omeprazole (OMEPRAZOLE) 40 Mg Capsule.dr, 40 MG PO QDAY PRN for heart burn, #90 CAP 3 Refills Prov:BRIANNA BAEZ MD 11/23/18 Gabapentin (GABAPENTIN) 300 Mg Capsule, 1 TAB PO BID, #180 CAPSULE 3 Refills Prov:BECKY ESPARZA MD 03/27/18 Reported Medications Biotin (BIOTIN) 1 Mg Capsule, 1 CAP PO QDAY 11/24/18 Cholecalciferol (Vitamin D3) (VITAMIN D3) 1,000 Unit Tablet, 2 TAB PO QDAY, TAB 11/24/18 Calcium Polycarbophil (FIBER TABS) 625 Mg Tablet, 2 TAB PO DAILY 11/23/18 Bifidobacterium Infantis (ALIGN) 4 Mg Capsule, 4 MG PO QDAY, CAPSULE 11/23/18 Metoprolol Succinate (METOPROLOL SUCCINATE) 100 Mg Tab.er.24h, 0.5 TAB PO QDAY, TAB 11/23/18 Warfarin Sodium (WARFARIN SODIUM) 5 Mg Tablet, 7.5 MG PO HS, TAB 01/03/18 Losartan Potassium (Losartan Potassium) 25 Mg Tablet, 25 MG PO HS 07/28/12 Multivitamins (Multivitamin) 1 Tab Tablet, 1 TAB PO DAILY 07/28/12 Docosahexanoic Acid/Epa (Fish Oil 1,000 Mg Capsule) 1 Cap Capsule, 1 CAP PO HS 07/28/12 Spironolactone (Spironolactone) 50 Mg Tablet, 50 MG PO DAILY 07/28/12 Discontinued Reported Medications [Areds] No Conflict Check, 1 TAB PO BID 11/20/17 Cholecalciferol (Vitamin D3) (VITAMIN D) 5,000 Unit Tablet, 5000 UNIT PO DAILY 11/20/17 Acetaminophen (TYLENOL) 325 Mg Tablet, 325 MG PO PRN, TAB 03/19/17 Metoprolol Tartrate (Metoprolol Tartrate) 100 Mg Tablet, 50 MG PO DAILY 07/28/12 Discontinued Scripts Prednisone (PREDNISONE) 20 Mg Tablet, 1 TAB PO BID for 5 Days, #10 TAB 0 Refills Prov:ARLIN GARG DNP, FNP-BC 10/07/18 Azithromycin (ZITHROMAX) 250 Mg Tablet, 0 PO QDAY, #6 TAB 0 Refills TAKE 2 TABLETS ON DAY 1 AND 1 TABLET ON DAYS 2-5 Prov:ARLIN GARG DNP, FNP-BC 10/07/18 Diphenoxylate Hcl/Atropine (DIPHENOXYLATE-ATROPINE TABLET) 1 Each Tablet, 1 EACH PO DAILY PRN for DIARRHEA, #30 TAB 1 Refill Prov:BECKY ESPARZA MD 05/28/18 Diet: Regular Activity: As Tolerated Special Instructions: Pack wound daily and prn. f/u dr. moiz castillo 7 days ([phone]). Venous Thromboembolism Antithrombotics Is Pt On Any Antithrombotics?: Yes SARAH CASTILLO Nov 28, 2018 10:57
--- NOTE | 2018-11-28 11:30 | Hospitalist Progress Note ---
Subjective Progress Notes Subjective No acute events overnight. No complaints at this time. She expressed interest in discharging. Patient Complains of: Neurological: No: Confusion, Weakness Cardiovascular: No: Chest Pain, Palpitations Respiratory: No: Cough, Congestion, Shortness of Breath Musculoskeletal: No: Pain Physical Exam Vital Signs Date Time Temp Pulse Resp B/P (MAP) Pulse Ox O2 Delivery O2 Flow Rate FiO2 11/28/18 06:59 98.4 97 16 96/59 (71) 93 Room Air 11/26/18 23:45 2.0 Intake and Output 11/28/18 07:04 Intake Total 2372 ml Balance 2372 ml Intake Oral 2158 ml IV Total 214 ml # Voids 1 General Appearance: Alert, Awake, No Acute Distress Neuro: No Gross deficits Cardiovascular: Regular Rate and Rhythm Respiratory: No Respiratory Distress Psych: Alert & Oriented X3, Appropriate Mood & Affect Result Diagram: 11/28/1850911/28/18509 Assessment and Plan Problems: (1) Cellulitis Status: Acute Assessment & Plan: The patient had a fluid collection left upper leg with overlying cellulitis. The fluid/area has been I&D with . Culture is growing Serratia Marcenscens (and urine culture is growing E. coli). She is on IV Zosyn, but will stop and switch to Bactrim for a total of 14 days of abx therapy, per . Fluoroquinolones are contraindicated in her because of the risk of aortic aneurysm and dissection with Marfans. Her potassium will have to be watched closely because of the ARB and spironolactone use. (2) Urinary tract infection Status: Acute Assessment & Plan: UA shows over 900 WBCs. Urine sent for culture, growing E. coli. She had been started on Zosyn, and transitioned to Bactrim. 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 Her INR in ER was 4.6. She was on 7.5mg daily. INR today is 3.74. She was started on 5mg a day on 11/25. The dose to be decreased to 2.5mg. Will discharge and have her follow up on saturday for repeat INR and BMP. Results to her PCP and clinic pharmacist, for close follow up while on antibiotics. She was instructed to hold her warfarin on 11/28 and resume on 11/29 with 2.5mg dose. (4) Valvular cardiomyopathy *Optional Permanent Comment*: Class I Last Edited By: Nat Esparza MD on Feb 19, 2018 10:24 Status: Chronic Assessment & Plan: Her most recent echo showed an EF of 35%. She was previously on metoprolol XL 50mg daily, losartan 25mg and spironolactone 50mg daily. She follows with a mysql developer in [place], [place]. We have decreased metoprolol to 25mg due to BP, spironolactone on hold. Metoprolol increased back to 50mg, and spironolactone restarted. (5) Dizziness Status: Acute Assessment & Plan: The morning of 11/25, the patient was in the bathroom got vertigo symptoms and fell. She had no LOC. She does have small laceration on the occiput. The bleeding has stopped. Head CT showed no intracranial bleeding. She was symptomatic with dizziness with all position changes during the Hallpike maneuver. She has had some chronic auditory acuity loss, which could raise the question of Meniere's disease. Follow symptoms. (6) Palpitations Status: Chronic Assessment & Plan: She does have fairly frequent ectopy. She has a history of nonsustained VT. She has been on metoprolol XL 50mg daily, but BP has been low normal, so currently on 25mg daily. She was restarted on 50mg dose. Will continue to monitor. 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 (8) Peripheral neuropathy Status: Chronic Assessment & Plan: Continue gabapentin 300mg bid. (9) Hyperlipidemia Status: Chronic Assessment & Plan: Continue pravastatin 40mg at HS. (10) Sleep apnea Status: Chronic Assessment & Plan: Continue BiPAP. (11) Obesity (BMI 30.0-34.9) Status: Chronic Copies to: NAT ESPARZA MD ; Exam Sepsis Risk: No Definite Risk Problem Qualifiers (1) Cellulitis: Site of cellulitis: extremity Site of cellulitis of extremity: lower extremity Laterality: left Qualified Codes: L03.116 - Cellulitis of left lower limb SAE MARTÍNEZ Nov 28, 2018 11:30
[2018-11-28] MEDS ORDERED: HEPARIN FLSH (PORT) 500 UN/5ML IVP ONE (12:15)
== END 2018-11-28 14:40 | disposition home or self-care (01) | DRG 603 ==
LOC: ER 18:49 → MED 21:29
PROVIDERS: ADMIT Surgery; ATTEND Surgery
PROC: 0J9M3ZX Drainage of Left Upper Leg Subcutaneous Tissue and Fascia, Percutaneous Approach, Diagnostic (ICD-10-PCS; principal; 2018-11-23)
PROC: 5A09357 Assistance with Respiratory Ventilation, Less than 24 Consecutive Hours, Continuous Positive Airway Pressure (ICD-10-PCS; 2018-11-23)
DX: L03.116 Cellulitis of left lower limb (principal); Q87.40 Marfan syndrome, unspecified; I42.9 Cardiomyopathy, unspecified; I50.22 Chronic systolic (congestive) heart failure; N39.0 Urinary tract infection, site not specified; E66.9 Obesity, unspecified; M41.9 Scoliosis, unspecified; G62.9 Polyneuropathy, unspecified; G47.30 Sleep apnea, unspecified; B96.20 Unspecified Escherichia coli [E. coli] as the cause of diseases classified elsewhere; B96.89 Other specified bacterial agents as the cause of diseases classified elsewhere; W18.30XA Fall on same level, unspecified, initial encounter; Y92.231 Patient bathroom in hospital as the place of occurrence of the external cause; Z85.048 Personal history of other malignant neoplasm of rectum, rectosigmoid junction, and anus; Z92.21 Personal history of antineoplastic chemotherapy; Z92.3 Personal history of irradiation; Z79.01 Long term (current) use of anticoagulants; Z95.4 Presence of other heart-valve replacement; Z68.33 Body mass index [BMI] 33.0-33.9, adult; Z86.73 Personal history of transient ischemic attack (TIA), and cerebral infarction without residual deficits; Z85.820 Personal history of malignant melanoma of skin; Z90.49 Acquired absence of other specified parts of digestive tract
CPT/HCPCS: 36415; 70450; 71046; 80202; 81001; 82040; 82247; 82310; 82374; 82435; 82565; 82947; 83605; 83735; 84075; 84132; 84155; 84295; 84450; 84460; 84520; 85025; 85610; 87040; 87070; 87077; 87088; 87186; 93005; 96361; 96374; 99285; J0696; J1642; J2543; J3370; J7030; J7040; J7050